=== PATIENT | female | born 1955 | race Caucasian/White ===

== ENCOUNTER → 2017-08-26 14:41 | Outpatient (CLI) | payer OTHER, SELFPAY ==
[2017-08-26 16:19] LABS: T4 Total, Thyroxin 9.5 ug/dL (4.8-13.9); Thyroid Stim Hormone (TSH) 1.49 uIU/mL (0.358-3.74)
[2017-08-30 11:57] LABS: HPV Reflexed? NOT INDICATED
== END ==
PROVIDERS: Family Provider Family Medicine; PCP Family Medicine; Visit Provider Family Medicine
DX: E03.9 Hypothyroidism, unspecified (principal); Z12.4 Encounter for screening for malignant neoplasm of cervix
CPT/HCPCS: 36415; 84436; 84443; 88175; G0145

== ENCOUNTER → 2017-09-10 09:19 | Outpatient (CLI) | payer OTHER, SELFPAY ==
--- NOTE | 2017-09-10 09:23 | US_ITS ---
STUDY: ABDOMINAL ULTRASOUND - RIGHT UPPER QUADRANT REASON FOR VISIT: Female, 61 years old. 3 month history of right upper quadrant pain with nausea and vomiting. TECHNIQUE: Ultrasound evaluation of the right upper quadrant was performed with real-time and static tran-scale imaging. TECHNICAL QUALITY: Adequate. COMPARISON: Comparison is made with prior examination dated August 17, 2015. FINDINGS: Liver: The liver measures 16.1 cm. There is increased echogenicity consistent with a mild degree of fatty infiltration. The bile ducts are within normal limits. There is hepatic color flow. The direction of portal flow is hepatopetal. There is no demonstrated mass lesion. Gallbladder: Normal distended gallbladder. The gallbladder wall measures 2.7 mm. There is a negative sonographic Santo's sign. There is no pericholecystic fluid. There are no gallstones. A small amount of sludge is seen within the gallbladder lumen. Common Bile Duct (C.B.D.): The common bile duct measures 4.5 mm. Pancreas: Normal size of the head, body and tail of the pancreas. There is normal echogenicity of the pancreas. There is no demonstrated pancreatic mass or cyst. Right Kidney: Normal size of the right kidney. The right kidney measures 11.2 cm x 5.3 cm x 4.1 cm. Normal renal cortex. The right cortex measures 1.3 cm. There is no demonstrated renal mass or cyst. There is no right hydronephrosis. 3 mm calculus is seen in the midportion right kidney. US/Abdomen Limited IMPRESSION: Mild degree of fatty infiltration of the liver. Stable nonobstructive right intrarenal calculus. Electronically Signed: Luis Angel De Jesus MD at 14:37 EDT Tel [phone], Service support ,
== END ==
PROVIDERS: Family Provider Family Medicine; PCP Family Medicine; Visit Provider Family Medicine
DX: R10.11 Right upper quadrant pain (principal)
CPT/HCPCS: 76705

== ENCOUNTER → 2017-09-23 12:21 | Outpatient (CLI) | payer OTHER, SELFPAY ==
--- NOTE | 2017-09-23 12:23 | NM_ITS ---
CLINICAL: 62-year-old female with reported history of abdominal pain and nausea. RADIONUCLIDE HEPATOBILIARY SCINTIGRAPHY COMPARISON: Abdominal ultrasound report 09/10/2017 FINDINGS: Following the intravenous administration of 5.3 mCi of 99m Tc Mebrofenin, hepatobiliary images reveal: 1. Relatively prompt and homogeneous radiopharmaceutical concentration is noted by a normal sized liver. No parenchymal defects are identified. 2. Gallbladder activity is identified at 10 minutes post radiopharmaceutical administration. 3. Small intestinal tract is not visualized during 60 minutes of pre-CCK sequential imaging. Small bowel activity is identified following the administration of cholecystokinin. 4. Washout of the radiopharmaceutical by the hepatic parenchyma appears qualitatively normal. Cholecystokinin (0.02 ug/kg) was administered intravenously over a 30-minute period. The post CCK gallbladder ejection fraction calculated at 25 minutes following Cholecystokinin administration was noted to be 89.0 % (normal greater than 35%). During 30 minutes of post CCK imaging, there is no scintigraphic evidence of reflux of the radiotracer into the common hepatic duct or refilling of the gallbladder. NM/Hepatobilliary Img w/Pharm Int IMPRESSION: 1. NORMAL 99m Tc Mebrofenin hepatobiliary imaging examination with Cholecystokinin. A. A gallbladder ejection fraction calculated to be greater than 35% following the administration of Cholecystokinin makes the probability of functional hepatobiliary disease (gallbladder and/or sphincter of Oddi dyskinesia) and/or organic hepatobiliary disease (chronic acalculous cholecystitis and/or cystic duct syndrome) to be low. (Stephanie Katz et al, Journal of Nuclear Medicine 32:1695, 1990). Electronically Signed: Rik Ibanez DO at 10:11 EDT Tel , Service support ,
== END ==
PROVIDERS: Family Provider Family Medicine; PCP Family Medicine; Visit Provider Family Medicine
DX: R10.11 Right upper quadrant pain (principal)
CPT/HCPCS: 78227; A9537; J2805

== ENCOUNTER 2017-12-04 20:00 | Emergency (ER) | payer OTHER, SELFPAY ==
--- NOTE | 2017-12-04 20:00 | DT_ITS ---
This patient was seen during an EMR downtime December 02, 2017 - December 09, 2017. This patient may have a combination of paper and electronic documentation or all paper documentation. All documentation is viewable within the e-chart portion of [facility] for each patient visit.
--- NOTE | 2017-12-04 22:00 | US_ITS ---
STUDY: ABDOMINAL ULTRASOUND - RIGHT UPPER QUADRANT REASON FOR VISIT: Female, 62 years old. Abdominal pain TECHNIQUE: Ultrasound evaluation of the right upper quadrant was performed with real-time and static tran-scale imaging. TECHNICAL QUALITY: Adequate. COMPARISON: None. FINDINGS: Liver: The liver measures 15 cm. There is increased echogenicity consistent with fatty infiltration. The bile ducts are within normal limits. There is hepatic color flow. The direction of portal flow is hepatopetal. There is no demonstrated mass lesion. The portal vein measures 9.3 mm. Measured at the radiologist workstation. Gallbladder: Normal distended gallbladder. The gallbladder wall measures 2 mm. There is a negative sonographic Santo's sign. There is no pericholecystic fluid. There are no gallstones. Common Bile Duct (C.B.D.): The common bile duct measures 5 mm. Pancreas: Normal size of the head, body and tail of the pancreas. There is normal echogenicity of the pancreas. There is no demonstrated pancreatic mass or cyst. Right Kidney: Normal size of the right kidney. The right kidney measures 10.4 x 4.3 x 4.7 cm. Normal renal cortex. The right cortex measures 1.4 cm. There is no demonstrated renal mass or cyst. There is mild right pelviectasis or minimal right hydronephrosis. There is a stable 2.2 mm stone within the right kidney. This is seen on August 17, 2015 abdominal ultrasound. There are punctate stones in the right kidney. US/Abdomen Limited IMPRESSION: Stable small stone in the right kidney. Mild right pelviectasis. No ultrasound evidence of cholelithiasis. Hepatic steatosis. Electronically Signed: Shante Rios MD at 20:28 EDT Tel , Service support ,
[2017-12-07 06:30] LABS: Absolute Lymphocyte Count 2.01 X10^3/ul (0.83-4.51); Basophil% 0.6 % (0-1); Eosinophils% 0.6 % (0-5); Hematocrit 40.1 % (37-47); Lymphocyte # 2.01 X10^3/ul (4.0); Mean Corp Hgb Conc 32.4 g/gl (32-36); Mean Corpuscular Hgb 29.3 pg (27.0-32.0); Mean Corpuscular Volume 90.5 fL (81-99); Mean Platelet Vol. 9.6 fl (6.2-12.0); Monocyte% 7.8 % (0-10); Neutrophil % 64.9 % (47-70); POSITIVE COUNT NO; POSITIVE DIFFERENTIAL NO; POSITIVE MORPHOLOGY NO; Platelet Count 211 K/mm3 (150-450); RBC Distribution Width SD 42.4 fl (35.1-43.9); Red Blood Count 4.43 M/mm3 (4.2-5.4); White Blood Count 7.7 K/mm3 (4.4-11.0)
[2017-12-07 06:31] LABS: Basophil# 0.05 X10^3/uL; Eosinophil# 0.05 X10^3/uL
[2017-12-07 06:48] LABS: AST(SGOT) 15 U/L (15-37); Alanine Aminotransfer ALT/SGPT 21 U/L (13-56); Alkaline Phosphatase 64 U/L (45-117); Bilirubin, Direct 0.07 mg/dL (0.00-0.30); Globulin 3.5 g/dL (2.2-4.2); Lipase 147 U/L (73-393); Protein, Total 7.5 g/dL (6.4-8.2)
[2017-12-07 11:14] LABS: Bacteria 0 SEEN /hpf (None Seen); Mucous, Urine 0 SEEN /hpf (<or=2+); Squamous Epithelial Cells - UA 0 SEEN /hpf (5-10)
[2017-12-07 11:23] LABS: Color, Urine Yellow (Yellow); Glucose, Dipstick NEGATIVE (Normal); Ketone-Dipstick 5 mg/dl (Negative); Leukocyte Esterase-Dipstick 25 /ul (Negative); Nitrite-Dipstick Negative (Negative); Occult Blood-Urine 10 /ul (Negative); Protein-Dipstick Negative (Negative); Red Blood Cells-Urine 0-5 SEEN /hpf (0-5); Transitional Epithelial - Ur 0-5 SEEN /hpf (0-5); Urine Bilirubin Dipstick Negative (Negative); Urine Clarity Clear (Clear); Urine Urobilinogen Normal (Normal); White Blood Cells 0-5 SEEN /hpf (0-5)
== END 2017-12-04 23:20 | disposition home or self-care (01) ==
LOC: ED 12-05 15:26
PROVIDERS: Emergency Provider Emergency Medicine; Family Provider Family Medicine; PCP Family Medicine
DX: R10.11 Right upper quadrant pain (principal); E03.9 Hypothyroidism, unspecified; Z79.899 Other long term (current) drug therapy
CPT/HCPCS: 76705; 80076; 81001; 83690; 85025; 96360; 96361; 99283; J7030; A4216

== ENCOUNTER → 2017-12-11 11:31 | Outpatient (CLI) | payer OTHER, SELFPAY ==
[2017-12-18 09:23] LABS: Fats, Neutral Normal (.); Fats, Total Normal (.)
== END ==
PROVIDERS: Family Provider Family Medicine; PCP Family Medicine; Visit Provider Internal Medicine Gastroenterology
DX: R19.7 Diarrhea, unspecified (principal); R11.0 Nausea
CPT/HCPCS: 82705

== ENCOUNTER → 2018-01-13 15:27 | Outpatient (CLI) | payer OTHER, SELFPAY ==
--- NOTE | 2018-01-13 15:34 | CT_ITS ---
STUDY: CT ABDOMEN AND PELVIS WITH CONTRAST REASON FOR EXAM: Female, 62 years old. Right upper quadrant pain RADIATION DOSAGE (If Supplied By Facility): CTDIvol = ( 11.09 ) mGy, DLP = ( 408.41 ) mGycm TECHNIQUE: Transaxial images were obtained from the dome of the diaphragm to the symphysis pubis without oral contrast. 100 ml of Isovue 300 contrast was administered. Sagittal and coronal images were reconstructed. Individualized dose optimization techniques were used for this CT. COMPARISON: None. FINDINGS: The visualized lung bases are unremarkable. The visualized portions of the heart are within normal limits. Normal liver. Normal gallbladder and extrahepatic biliary system. Normal spleen. Normal pancreas. Normal bilateral adrenal glands. Normal right kidney. Normal left kidney. Normal visualized stomach. Normal small intestine. Normal colon. There is non-visualization of the appendix. Normal abdominal aorta. Normal inferior vena cava. Normal retroperitoneum. Normal urinary bladder. Normal abdominal wall. Normal osseous structures. CT/Abdomen/Pelvis WITH Contrast IMPRESSION: Normal enhanced CT of the abdomen and pelvis. Electronically Signed: Michael Wagner MD at 7:54 EDT Tel , Service support ,
[2018-01-13 15:51] LABS: CREATININE FINGERSTICK < 0.6 mg/dL (0.55-1.02); EGFR FINGERSTICK > 60.0000 mL/min (>60)
== END ==
PROVIDERS: Family Provider Family Medicine; PCP Family Medicine; Visit Provider Internal Medicine Gastroenterology
DX: R10.9 Unspecified abdominal pain (principal); R11.0 Nausea
CPT/HCPCS: 74177; Q9967

== ENCOUNTER → 2018-09-05 10:06 | Outpatient (CLI) | payer OTHER, SELFPAY ==
[2018-09-05 12:59] LABS: Anion Gap 6 (5-15); BUN 11 mg/dL (7-18); BUN/Creat Ratio 15.3 RATIO (10-20); Calcium,Total 8.2 mg/dL (8.5-10.1); Chloride 107 mmol/L (98-107); Creatinine, Serum 0.72 mg/dL (0.55-1.02); EST Glomerular Filtration Rate 87 mL/min (>60); Est Glom Filt Rate - Afr Amer 106 mL/min (>60); Glucose 90 mg/dL (74-106); Potassium 4.2 mmol/L (3.5-5.1); Sodium Level 139 mmol/L (136-145); T4 Total, Thyroxin 10.5 ug/dL (4.8-13.9)
== END ==
PROVIDERS: Family Provider Family Medicine; PCP Family Medicine; Referring Provider Family Medicine; Visit Provider Family Medicine
DX: E03.9 Hypothyroidism, unspecified (principal); Z01.419 Encounter for gynecological examination (general) (routine) without abnormal findings
CPT/HCPCS: 36415; 80048; 84436; 84443

== ENCOUNTER → 2018-10-27 | Outpatient (CLI) | payer OTHER, SELFPAY ==
--- NOTE | 2018-10-27 12:51 | BI_ITS ---
MAMMOGRAPHY - BILATERAL SCREENING REASON FOR EXAM: Female, 63 years old. Routine annual screening examination. PERTINENT HISTORY: Non-contributory. TECHNIQUE: Digital bilateral breast dell (3D mammographic acquisition) in the CC and MLO projections. 2-D mediolateral oblique (MLO) and craniocaudad (CC) views of both breasts were obtained. CAD: Full Field Digital Mammography with Computer Added Detection was performed. COMPARISON: Comparison is made with prior study dated August 09, 2014 and August 07, 2013. FINDINGS: Breast Composition: There are scattered areas of fibroglandular density. There are no dominant masses or suspicious calcifications. No other significant abnormalities are identified. There has been no significant change since the prior study. BI/SCREENING MAMM (CAD), BILAT IMPRESSION: Stable bilateral screening mammogram. Yearly follow-up mammogram recommended. (A) ASSESSMENT CATEGORY: BIRADS Category 1: Negative. A letter regarding these results will be sent to the patient by the facility within 30 days. Approximately 10% of breast cancers are not detected by mammography. A normal mammogram should not delay biopsy of a clinically suspicious abnormality. [id number] Electronically Signed: Luis Angel De Jesus, at 14:45 EDT , Service support ,
== END | disposition home or self-care (01) ==
LOC: OPBI 12:50
PROVIDERS: Family Provider Family Medicine; PCP Family Medicine; Referring Provider Family Medicine; Visit Provider Family Medicine
DX: Z12.31 Encounter for screening mammogram for malignant neoplasm of breast (principal)
CPT/HCPCS: 77063; 77067

== ENCOUNTER → 2019-06-05 06:33 | Outpatient (CLI) | payer OTHER, SELFPAY ==
--- NOTE | 2019-06-05 15:51 | STRESSREP_ITS ---
Stress Test Report Date: 06/05/2019 Procedure: Exercise tolerance test/imaging study Indications: Chest pain Consent: Per the patient Procedure: The patient exercised on a Arian protocol for 9 minutes and 30 seconds achieving a peak heart rate of 169 bpm (107 % predicted maximal heart rate) with a peak blood pressure 180/60 mmHg and a peak MET capacity of 10.9 METs. The baseline ECG demonstrated normal sinus rhythm. The peak exercise ECG demonstrated sinus tachycardia with about 1 to [address] depressions in the inferior and lateral leads. EKG during recovery revealed return of ST segments to baseline [There were no significant cardiac dysrhythmias pretest, during exercise, or recovery]. Patient had occasional PVCs during exercise and in the recovery period. The functional capacity was considered [excellent for age]. There was [no complaint of chest discomfort during exercise or recovery]. The examination was discontinued secondary to dyspnea. Impression: 1. Technically adequate (percent predicted maximal heart rate greater than 85%) exercise tolerance test 2. Stress test is positive for exercise-induced EKG changes of ischemia 3. The test test is negative for exercise-induced chest pain 4. Functional capacity is excellent for age 5. Nuclear images pending Myocardial perfusion imaging study: Technique: The patient was injected with 12 mCi of technetium 99m Cardiolite and subsequently rest SPECT Cardiolite nuclear imaging was obtained in the horizontal long, vertical long, and short axis views. The patient exercised on a Arian protocol. Please see above for details. The patient was injected with [234] mCi of technetium 99m Cardiolite and subsequently stress SPECT Cardiolite nuclear imaging was obtained in the horizontal long, vertical long, and short axis views. A gated Cardiolite study at peak stress was obtained. Interpretation: Rest and stress SPECT Cardiolite nuclear imaging status post realignment, normalization, and attenuation correction, demonstrates normal myocardial radioisotope uptake. The gated Cardiolite study demonstrates no significant regional wall motion abnormalities. The reported LVEF is greater than 70 %. Impression: 1. There is no evidence of significant ischemia or infarction on the nuclear portion of the test. The EKG portion was abnormal as described above. 2. The gated Cardiolite study reports an LVEF of greater than 70 %. This note was generated with [employer] software. It may contain incorrect words, spelling, and punctuation that were not noted in checking the note before signing.
== END ==
PROVIDERS: Family Provider Family Medicine; PCP Family Medicine; Referring Provider Family Medicine; Visit Provider Family Medicine
DX: R07.89 Other chest pain (principal)
CPT/HCPCS: 78452; 93017; A9500; A4216

== ENCOUNTER → 2019-07-08 10:28 | Outpatient (CLI) | payer OTHER, SELFPAY ==
[2019-07-08 08:51] VITALS: BMI 26.2
[2019-07-08 10:20] VITALS: BMI 26.2
[2019-07-08 11:16] LABS: Absolute Lymphocyte Count 1.51 X10^3/uL (0.83-4.51); Absolute Neutrophil Count 5.1 X10^3/uL (2.0-7.7); Basophil# 0.07 X10^3/uL; Eosinophil# 0.08 X10^3/uL; Eosinophils% 1.1 % (0-5); Hematocrit 44.1 % (37-47); Hemoglobin 14.2 g/dL (12.0-15.0); Lymphocyte # 1.51 X10^3/ul (4.0); Lymphocyte % 20.9 % (19-41); Mean Corp Hgb Conc 32.2 g/dL (32-36); Mean Corpuscular Hgb 29.5 pg (27.0-32.0); Mean Corpuscular Volume 91.5 fL (81-99); Mean Platelet Vol. 9.5 fl (6.2-12.0); Monocyte# 0.47 X10^3/uL; Monocyte% 6.5 % (0-10); NRBC Flagged by Analyzer 0 % (0-5); Neutrophil # 5.05 X10^3/uL (2.7-7.7); Neutrophil % 70.1 % (47-70); Platelet Count 248 K/mm3 (150-450); RBC Distribution Width CV 13.4 % (11.6-14.6); RBC Distribution Width SD 45.2 fl (35.1-43.9); Red Blood Count 4.82 M/mm3 (4.2-5.4); White Blood Count 7.2 K/mm3 (4.4-11.0)
[2019-07-08 11:41] LABS: BUN 11 mg/dL (7-18); Creatinine, Serum 0.85 mg/dL (0.55-1.02); EST Glomerular Filtration Rate 71 mL/min (>60); Glucose 125 mg/dL (74-106)
[2019-07-08 11:42] LABS: AST(SGOT) 19 U/L (15-37); Alanine Aminotransfer ALT/SGPT 38 U/L (13-56); Albumin, Serum 4.2 g/dL (3.2-5.0); Alkaline Phosphatase 58 U/L (45-117); Anion Gap 5 (5-15); BUN/Creat Ratio 12.9 RATIO (10-20); Bilirubin, Direct 0.08 mg/dL (0.00-0.30); Calcium,Total 8.7 mg/dL (8.5-10.1); Chloride 104 mmol/L (98-107); Cholesterol 206 mg/dL (200); Est Glom Filt Rate - Afr Amer 86 mL/min (>60); High Density Lipoprotein 104 mg/dL; Potassium 4.3 mmol/L (3.5-5.1); Protein, Total 8.2 g/dL (6.4-8.2); Sodium Level 137 mmol/L (136-145); Thyroid Stim Hormone (TSH) 2.48 uIU/mL (0.358-3.74); Triglycerides 117 mg/dL; Very Low Density Lipoprotein 23 mg/dL (5-40)
--- NOTE | 2019-07-08 12:55 | RAD_ITS ---
STUDY: X-RAY CHEST REASON FOR EXAM: Female, 63 years old. CHEST PAIN, ABNORMAL EKG TECHNIQUE: PA and lateral views of the chest. COMPARISON: None. FINDINGS: The lungs are clear and expanded. Scattered calcified granulomas. There is no demonstrated pleural abnormality. Normal size heart. Normal mediastinum and kayden. Normal visualized pulmonary arteries. Normal visualized aortic arch and descending thoracic aorta. There are mild degenerative changes of the visualized thoracic spine. Normal visualized ribs, clavicles, and shoulders. There is no demonstrated abnormality of the visualized soft tissue structures of the upper abdomen. RAD/Chest PA and Lateral IMPRESSION: Normal x-ray examination of the chest. Electronically Signed: Luis Angel De Jesus, at 13:32 EST , Service support ,
--- NOTE | 2019-07-08 13:56 | ECHOD_ITS ---
Version 2 Reason For Study: Chest Pain Procedure This was a 2D Doppler, Color Flow transthoracic echocardiogram. Exam performed portable in patient room. Left Ventricle Normal LV size. Apical false tendon noted. Left ventricular systolic function is normal. The estimated ejection fraction is 65 %. Normal diastology for age. No regional wall motion abnormalities noted. Right Ventricle Normal RV size. Normal systolic function. Atria Normal left atrium. Normal right atrium. Bubble contrast study negative for right to left interatrial shunt. Mitral Valve Normal mitral valve. Tricuspid Valve Normal tricuspid valve. Aortic Valve Normal aortic valve. Trisinus/trileaflet aortic valve. Pulmonic Valve Normal pulmonic valve. Great Vessels Normal aortic root. The pulmonary artery is normal size. Normal inferior vena cava. Pericardium/Pleural Small pericardial effusion. Medication Performed a rapid injection of agitated mix of 9 cc saline and 1cc air to assess for atrial septal defect. MMode/2D Measurements & Calculations LVIDd: 3.9 cm IVSd: 1.0 cm Ao root diam: 2.8 cm LVIDs: 2.2 cm LVPWd: 1.0 cm RVDd: 2.9 cm FS: 41.9 % LAV(MOD-bp): 50.7 ml LVAd ap4: 19.8 cm2 SV(MOD-sp4): 34.8 ml LAV(MOD-bp) Indexed: 29.7 ml/m2 EDV(MOD-sp4): 50.1 ml LAV(MOD-sp2): 54.9 ml EDV(sp4-el): 50.7 ml LAV(MOD-sp4): 45.5 ml LVAs ap4: 9.7 cm2 ESV(MOD-sp4): 15.3 ml ESV(sp4-el): 15.2 ml EF(MOD-sp4): 69.4 % EF(sp4-el): 69.9 % SV(sp4-el): 35.4 ml LA A4 area: 16.3 cm2 LA dimension(2D): 3.6 cm RA A4 area: 12.7 cm2 Doppler Measurements & Calculations MV E max nato: 72.9 cm/sec Lat Peak E' Nato: 10.1 cm/sec Med Peak E' Nato: 8.1 cm/sec MV A max nato: 57.8 cm/sec E/E' lat: 7.2 E/E' med: 9.0 MV E/A: 1.3 Ao V2 max: 137.0 cm/sec LV V1 max: 118.9 cm/sec PA V2 max: 87.1 cm/sec Ao max P.5 mmHg LV V1 max P.7 mmHg Ao V2 mean: 94.9 cm/sec Ao mean P.0 mmHg Ao V2 VTI: 28.3 cm TR max nato: 247.8 cm/sec TR max P.6 mmHg Interpretation Summary Normal LV size. Left ventricular systolic function is normal. The estimated ejection fraction is 65 %. Normal diastology for age. Bubble contrast study negative for right to left interatrial shunt. Structurally normal valves. Ordering Physician: Carrillo Pavon Referring Physician: Betrha Frank Performed By: Conchita Goldsmith, EDUARDO, RVT
== END ==
PROVIDERS: Family Provider Family Medicine; PCP Family Medicine; Referring Provider Internal Medicine Cardiovascular Disease; Visit Provider Internal Medicine Cardiovascular Disease
DX: R07.9 Chest pain, unspecified (principal)
CPT/HCPCS: 36415; 71046; 80048; 80061; 80076; 84443; 85025; 93306; A4216

== ENCOUNTER 2019-07-09 06:43 | Day surgery (SDC) | payer OTHER, SELFPAY ==
[2019-07-08 08:51] VITALS: BMI 26.2
[2019-07-08 10:20] VITALS: BMI 26.2
--- NOTE | 2019-07-09 09:00 | CL.D_ITS ---
Patient Name: OSBALDO ZARAGOZA Study Date: 07/09/2019 Performing: Carrillo Pavon MD Ht: 64.17 inches 163 cm : 1955 Wt: 152.12 lbs 69 kg Age: 63 Gender: female BSA: 1.74 PROCEDURE(S) PERFORMED [id number]/COR/LV CLINICAL PROFILE AND INDICATIONS Indications: Suspected CAD Heart Failure: None Stress/Imaging Date: 06/05/2019Stress Test with SPECT MPI: Indeterminant CAD Presentations: Symptom unlikely to be ischemic. CONCLUSIONS Normal coronary arteries Normal LV size, wall motion,and systolic function RECOMMENDATIONS Medical therapy DESCRIPTION OF PROCEDURE The patient arrived to the procedure lab. The risks and benefits of the procedure as well as a full d escription of our services here and current unavailability of surgical backup were fully explained to the patient and/or their significant other prior to the catheterization. The Timeout was completed, verifying the correct patient and procedure. The patient's procedural site was prepped and draped in the usual fashion. Local anesthetic was given subcutaneously to right radial region with Lidocaine 2% . Using a modified Seldinger technique, arterial access was obtained via the right radial artery, a 6 Fr sheath was inserted. Left Coronary Artery selective angiography was performed in multiple views u sing a 5 Fr. 4.0 Quimby catheter. Right Coronary Artery selective angiography was then performed in mu ltiple views using a 5 Fr. 4.0 Quimby catheter. Left Ventriculography was performed in FARRIS projection using a 5 Fr. Pigtail catheter. LV to AO pullback pressures were then recorded.The arterial sheath was pulled and a TR Band was applied for hemostasis-12 cc air CORONARY ANGIOGRAPHY DOMINANCE: Right Dominant LEFT HEART ASSESSMENT Left Ventricular Ejection Fraction: by LV Gram 60 % Normal LV wall motion Normal Left Ventricular systolic function Normal Left Ventricular systolic function LEFT MAIN: Angiographically normal LEFT ANTERIOR DESCENDING ARTERY: Angiographically normal CIRCUMFLEX ARTERY: Angiographically normal RIGHT CORONARY ARTERY: Angiographically normal COMPLICATIONS No Complications PROCEDURE MEDICATIONS Versed 1 mg IV Fentanyl 50 mcg IV Fentanyl 25 mcg IV Oxygen: 2 L/min via nasal cannula Baby Aspirin (81mg) 1 Tabs PO @ 07/09/2019 08:41:29 Heparin diluted in 23cc Heparinized saline. Patient given 10cc IA of this solution. 07/09/2019 08:43:0 4 Verapamil 2.5mg, Ntg 100mcgs, 2000 units of Heparin diluted in 23cc Heparinized saline. Patient give n 10cc IA of this solution. 07/09/2019 08:43:04 SUMMARY OF HEMODYNAMIC DATA Time AIR REST ECG 07:13:52 AO 126/77 (101) SA 08:44:32 LV 151/2, 5 08:50:33 LV 143/2, 4 08:50:39 LV 131/6, 10 08:51:17 LVp 139/4, 11 08:51:28 AOp 146/74 (109) 08:51:33 Signed By Carrillo Pavon MD On 07/09/2019 08:59:54 Carrillo Pavon MD
== END 2019-07-09 12:00 | disposition home or self-care (01) ==
LOC: CLSP 06:43
PROVIDERS: Family Provider Family Medicine; PCP Family Medicine; Referring Provider Internal Medicine Cardiovascular Disease; Visit Provider Internal Medicine Cardiovascular Disease
DX: R07.9 Chest pain, unspecified (principal); E03.9 Hypothyroidism, unspecified; Z79.899 Other long term (current) drug therapy
CPT/HCPCS: 93458; 99152; 99153; J7040; C1769; C1894; Q9967

== ENCOUNTER → 2020-05-05 10:09 | Outpatient (CLI) | payer OTHER, SELFPAY ==
[2019-12-30 10:08] VITALS: BMI 25.7
[2020-05-05 13:18] LABS: T4 Total, Thyroxin 12.5 ug/dL (4.8-13.9); Thyroid Stim Hormone (TSH) 1.27 uIU/mL (0.358-3.74)
== END ==
PROVIDERS: PCP Family Medicine; Referring Provider Family Medicine; Visit Provider Family Medicine
DX: E03.9 Hypothyroidism, unspecified (principal)
CPT/HCPCS: 36415; 84436; 84443

== ENCOUNTER → 2020-05-13 | Outpatient (CLI) | payer OTHER, SELFPAY ==
[2019-12-30 10:08] VITALS: BMI 25.7
== END | disposition home or self-care (01) ==
PROVIDERS: PCP Family Medicine; Referring Provider Family Medicine; Visit Provider Family Medicine
DX: U07.1 COVID-19 (principal)
CPT/HCPCS: 87635; U0003

== ENCOUNTER 2020-08-09 22:20 | Emergency (ER) | payer OTHER, SELFPAY ==
[2019-12-30 10:08] VITALS: BMI 25.7
[2020-08-09 22:20] VITALS: BP 139/94; PULSE 99; RESP 18; TEMP 36.2; O2SAT 99; BMI 25.7
--- NOTE | 2020-08-09 22:34 | CT_ITS ---
STUDY: CT ABDOMEN AND PELVIS WITHOUT CONTRAST REASON FOR EXAM: Female, 64 years old. RIGHT SIDE UPPER ABD PAIN TODAY THAT IS SHARP IN NATURE, HX APPY RADIATION DOSAGE (If Supplied By Facility): CTDIvol = ( 8.12 ) mGy, DLP = ( 369.17 ) mGycm TECHNIQUE: Transaxial images were obtained from the dome of the diaphragm to the symphysis pubis without oral contrast, and without intravenous contrast. Sagittal and coronal images were reconstructed. Individualized dose optimization techniques were used for this CT. COMPARISON: None. FINDINGS: The visualized lung bases are unremarkable. The visualized portions of the heart are within normal limits. There is decreased attenuation of the liver consistent with steatosis. There is hepatomegaly. Normal gallbladder and extrahepatic biliary system. Normal spleen. Normal pancreas. Normal bilateral adrenal glands. Normal right kidney. Normal left kidney. Evaluation of the GI tract is limited by absence of oral contrast. Cannot exclude stomach wall thickening. No dilated loops of bowel or evidence for obstruction. Cannot exclude segmental thickening of the orantes of the small or large bowel. Cannot exclude enteritis or colitis. Moderate diffuse fecal retention. Appendix is not seen. Normal abdominal aorta. Normal inferior vena cava. Normal retroperitoneum. Normal urinary bladder. Normal visualized uterus. Normal abdominal wall. Normal osseous structures. CT/Abdomen/Pelvis without Cont IMPRESSION: No significant acute abnormality. Fatty liver with hepatomegaly. Moderate diffuse fecal retention. Electronically Signed: Sushant Mancuso MD at 23:28 EST , Service support ,
--- NOTE | 2020-08-09 22:36 | ED.VIS.GEN ---
History of Present Illness Chief Complaint: Abd Pain Informant: Patient Narrative: Patient stated this afternoon she had acute onset of sharp right sided waxing and waning pain. No nausea or vomiting. It came on worse this evening. She took a half a hydrocodone with moderate relief of symptoms. Came in for further evaluation. Had a similar episode 3 years ago had negative right upper quadrant ultrasound other than renal stone. Pain never came back. No blood in her urine. No urinary symptoms. She has never had a renal stone that she could think of lodged in her ureter. Current severity is mild to moderate. Cannot get comfortable tonight so came in. History of appendectomy. - Past Medical History (1) Intermittent palpitations Status: Chronic Past Medical History - Allergies and Home Meds Allergies/Adverse Reactions: Allergies lidocaine Allergy (Verified 07/09/19 07:42) Swelling from procedure on face, had localized swelling procaine [From Novocain] Adverse Reaction (Verified 07/09/19 07:42) Swelling dental procedure, localized swelling Primary Care Physician: Bertha Frank MD [Primary Care Provider] - Prior records reviewed: Yes Past Medical History: - - See problem list Surgical History: appendectomy Lives: With Family Smoking Status: Never smoker Alcohol: None Drugs: None Review of Systems General: Denies: Chills, Fever, Sweats Eyes: Denies: Visual changes - bilaterally, Diplopia ENT: Denies: Rhinorrhea, Sore throat Cardiovascular: Denies: Chest pain, Palpitations Respiratory: Denies: Dyspnea, Cough, Dyspnea on exertion Gastrointestinal: Reports: Abdominal pain. Denies: Nausea, Vomiting, Melena, Hematochezia Genitourinary: Denies: Dysuria, Hematuria, Frequency Musculoskeletal: Denies: Back pain, Extremity Pain Skin: Denies: Rash, Wounds Neurological: Denies: Headache, Weakness, Numbness Physical Exam Vital Signs/Narrative: Vital Signs Temp Pulse Resp BP Pulse Ox 08/09/20 22:20 97.1 F L 99 18 139/94 H 99 General: Well nourished, Well developed, No Acute Distress Head: Normocephalic, Atraumatic Eyes: Perrl, EOMI ENT: Moist mucous membranes, No rhinorrhea Neck: Supple, Nontender Cardiovascular: Regular rate, Regular rhythm, No murmurs Respiratory: No distress, CTA bilaterally, Chest nontender Abdomen: Soft, Nontender, Nondistended, Normal bowel sounds Back: Nontender, Normal Inspection Extremities: Nontender, No edema Skin: Normal color, No rash Neurological: Alert, Oriented x3, Cranial nerves II-XII grossly intact, Normal Strength, Normal Sensation Psychological: Normal affect, Normal Mood Diagnostic/Tx/Re-eval - Medical Decision Making IV established given dose of morphine and Toradol. Lab work and CT abdomen and pelvis obtained. Lab work showed a very mild leukocytosis just above 11,000. Liver function tests lipase urinalysis and other electrolytes kidney function normal. CT abdomen pelvis showed stool throughout the colon. Otherwise mild hepatomegaly. Gallbladder normal. Otherwise no renal stones seen or other pathology. This was reassured to the patient. On reevaluation she is resting comfortably. She does not appear in pain. Is not clear to me the exact cause of her symptoms in the right upper quadrant. Have a low suspicion for hepatitis. I feel she can follow-up with her family doctor for further outpatient evaluation ED Disposition - Plan for ED Patient: Disposition: Home or Assisted Living Diagnosis: Right flank pain Instructions: ED Abdominal Pain Unkn Cause Fem Referrals: Bertha Frank MD [Primary Care Provider] -
[2020-08-09 22:50] LABS: Bacteria 0 SEEN /hpf (None Seen); Mucous, Urine 0 SEEN /hpf (<or=2+); Red Blood Cells-Urine 0 SEEN /hpf (0-5); Squamous Epithelial Cells - UA 0 SEEN /hpf (5-10); White Blood Cells 0 SEEN /hpf (0-5)
[2020-08-09 22:52] LABS: Absolute Lymphocyte Count 1.86 X10^3/uL (0.83-4.51); Absolute Neutrophil Count 8.8 X10^3/uL (2.0-7.7); Basophil# 0.06 X10^3/uL; Basophil% 0.5 % (0-1); Eosinophil# 0.12 X10^3/uL; Hematocrit 41.7 % (37-47); Hemoglobin 13.3 g/dL (12.0-15.0); Lymphocyte # 1.86 X10^3/ul (4.0); Mean Corp Hgb Conc 31.9 g/dL (32-36); Mean Corpuscular Hgb 29.1 pg (27.0-32.0); Mean Corpuscular Volume 91.2 fL (81-99); Mean Platelet Vol. 9.3 fl (6.2-12.0); Monocyte# 0.79 X10^3/uL; Monocyte% 6.8 % (0-10); NRBC Flagged by Analyzer 0 % (0-5); Neutrophil # 8.75 X10^3/uL (2.7-7.7); Neutrophil % 75.4 % (47-70); Platelet Count 206 K/mm3 (150-450); RBC Distribution Width CV 13.6 % (11.6-14.6); RBC Distribution Width SD 45.9 fl (35.1-43.9); Red Blood Count 4.57 M/mm3 (4.2-5.4); White Blood Count 11.6 K/mm3 (4.4-11.0)
[2020-08-09 22:53] LABS: Color, Urine Yellow (Yellow); Glucose, Dipstick Normal (Normal); Ketone-Dipstick Negative (Negative); Leukocyte Esterase-Dipstick 25 /ul (Negative); Nitrite-Dipstick Negative (Negative); Occult Blood-Urine 25 /ul (Negative); Protein-Dipstick Negative (Negative); Urine Bilirubin Dipstick Negative (Negative); Urine Clarity Sl. Cloudy (Clear); Urine Urobilinogen Normal (Normal); Urine pH 6.5 (5.0 - 8.0)
[2020-08-09] MEDS: Morphine 2 MG/ML Syringe IV (22:55)
[2020-08-09] MEDS: Ketorolac 15 MG/ML Vial IV (22:55)
[2020-08-09 23:10] LABS: ALB/GLOB Ratio 1.1 RATIO (0.9-2.4); AST(SGOT) 22 U/L (15-37); Alanine Aminotransfer ALT/SGPT 45 U/L (13-56); Alkaline Phosphatase 60 U/L (45-117); Anion Gap 4 (5-15); BUN 16 mg/dL (7-18); Calcium,Total 8.7 mg/dL (8.5-10.1); Chloride 105 mmol/L (98-107); EST Glomerular Filtration Rate 76 mL/min (>60); Est Glom Filt Rate - Afr Amer 92 mL/min (>60); Estimated Creatinine Clearance 61.35 ml/min; Globulin 3.8 g/dL (2.2-4.2); Glucose 124 mg/dL (74-106); Lipase 114 U/L (73-393); Potassium 3.9 mmol/L (3.5-5.1); Protein, Total 7.8 g/dL (6.4-8.2); Sodium Level 137 mmol/L (136-145)
[2020-08-09 23:46] VITALS: BP 145/77; PULSE 83; RESP 16; O2SAT 98
== END 2020-08-09 23:51 | disposition home or self-care (01) ==
PROVIDERS: Emergency Provider Emergency Medicine; PCP Family Medicine
DX: R10.9 Unspecified abdominal pain (principal)
CPT/HCPCS: 74176; 80053; 81001; 83690; 85025; 96361; 96374; 96375; 99283; J7040; A4216

== ENCOUNTER → 2020-11-04 11:24 | Outpatient (CLI) | payer MEDICARE, OTHER, SELFPAY ==
[2020-11-04 15:09] LABS: Erythrocyte Sedimentation Rate 5 mm/hr (0-30)
[2020-11-04 15:11] LABS: Absolute Neutrophil Count 4.6 X10^3/uL (2.0-7.7); Basophil# 0.05 X10^3/uL; Basophil% 0.7 % (0-1); Eosinophil# 0.06 X10^3/uL; Eosinophils% 0.9 % (0-5); Hematocrit 45.2 % (37-47); Hemoglobin 14.5 g/dL (12.0-15.0); Lymphocyte % 24.8 % (19-41); Mean Corp Hgb Conc 32.1 g/dL (32-36); Mean Corpuscular Hgb 29.8 pg (27.0-32.0); Mean Platelet Vol. 10.2 fl (6.2-12.0); Monocyte# 0.43 X10^3/uL; Monocyte% 6.3 % (0-10); NRBC Flagged by Analyzer 0 % (0-5); Neutrophil % 67.2 % (47-70); Platelet Count 232 K/mm3 (150-450); RBC Distribution Width CV 13.3 % (11.6-14.6); RBC Distribution Width SD 45.5 fl (35.1-43.9); Red Blood Count 4.86 M/mm3 (4.2-5.4); White Blood Count 6.9 K/mm3 (4.4-11.0)
[2020-11-04 15:21] LABS: AST(SGOT) 19 U/L (15-37); Alanine Aminotransfer ALT/SGPT 24 U/L (13-56); Albumin, Serum 4.2 g/dL (3.2-5.0); Alkaline Phosphatase 52 U/L (45-117); Bilirubin, Direct 0.14 mg/dL (0.00-0.30); CRP < 2.90 mg/L (0.0-3.0); Globulin 3.7 g/dL (2.2-4.2); Protein, Total 7.9 g/dL (6.4-8.2); Rheumatoid Factor < 10.0 IU/mL (<15)
== END ==
PROVIDERS: PCP Family Medicine; Referring Provider Dermatology; Visit Provider Dermatology
DX: R21 Rash and other nonspecific skin eruption (principal)
CPT/HCPCS: 36415; 80076; 83516; 85025; 85652; 86038; 86140; 86235; 86431

== ENCOUNTER → 2021-02-27 09:35 | Outpatient (CLI) | payer MEDICARE, OTHER, SELFPAY ==
[2021-02-27 12:53] LABS: T4 Total, Thyroxin 9.6 ug/dL (4.8-13.9); Thyroid Stim Hormone (TSH) 5.45 uIU/mL (0.358-3.74)
== END ==
PROVIDERS: PCP Family Medicine; Visit Provider Family Medicine
DX: E03.9 Hypothyroidism, unspecified (principal)
CPT/HCPCS: 36415; 84436; 84443

== ENCOUNTER → 2021-05-22 10:36 | Outpatient (CLI) | payer MEDICARE, OTHER, SELFPAY ==
[2021-05-22 15:30] LABS: Thyroid Stim Hormone (TSH) 0.76 uIU/mL (0.358-3.74)
== END ==
PROVIDERS: PCP Family Medicine; Visit Provider Family Medicine
DX: E03.9 Hypothyroidism, unspecified (principal)
CPT/HCPCS: 36415; 84443

== ENCOUNTER 2021-10-03 14:36 | Outpatient (CLI) | payer MEDICARE, OTHER, SELFPAY ==
--- NOTE | 2021-10-03 14:40 | BI_ITS ---
MAMMOGRAPHY - BILATERAL SCREENING REASON FOR EXAM: Female, 66 years old. Routine annual screening examination. PERTINENT HISTORY: Non-contributory. TECHNIQUE: Digital bilateral breast frandy (3D mammographic acquisition) in the CC and MLO projections. 2-D mediolateral oblique (MLO) and craniocaudad (CC) views of both breasts were obtained. CAD: Full Field Digital Mammography with Computer Added Detection was performed. COMPARISON: Comparison is made with prior study dated 10/27/2018 and 08/09/2014. FINDINGS: Breast Composition: There are scattered areas of fibroglandular density. There are no dominant masses or suspicious calcifications. No other significant abnormalities are identified. There has been no significant change since the prior study. BI/SCRN MAMM (CAD)W/FRANDY BILAT IMPRESSION: Stable bilateral screening mammogram. Yearly follow-up mammogram recommended. (A) ASSESSMENT CATEGORY: BIRADS Category 1: Negative. A letter regarding these results will be sent to the patient by the facility within 30 days. Approximately 10% of breast cancers are not detected by mammography. A normal mammogram should not delay biopsy of a clinically suspicious abnormality. [id number] Electronically Signed: Luis Angel De Jesus MD at 15:45 EDT ,
== END 2021-10-03 23:59 | disposition home or self-care (01) ==
PROVIDERS: PCP Family Medicine; Referring Provider Family Medicine; Visit Provider Family Medicine
DX: Z12.31 Encounter for screening mammogram for malignant neoplasm of breast (principal)
CPT/HCPCS: 77063; 77067

== ENCOUNTER → 2022-05-02 | Outpatient (CLI) | payer MEDICARE, OTHER, SELFPAY ==
[2022-05-02 18:21] LABS: T4 Total, Thyroxin 11.7 ug/dL (4.8-13.9); Thyroid Stim Hormone (TSH) 0.18 uIU/mL (0.358-3.74)
== END | disposition home or self-care (01) ==
LOC: MFPLAB 14:50
PROVIDERS: PCP Family Medicine; Referring Provider Family Medicine; Visit Provider Family Medicine
DX: E03.9 Hypothyroidism, unspecified (principal)
CPT/HCPCS: 36415; 84436; 84443

== ENCOUNTER → 2022-08-02 | Outpatient (CLI) | payer MEDICARE, OTHER, SELFPAY ==
[2022-08-02 15:36] LABS: Thyroid Stim Hormone (TSH) 0.51 uIU/mL (0.358-3.74)
== END | disposition home or self-care (01) ==
LOC: MFPLAB 11:58
PROVIDERS: PCP Family Medicine; Referring Provider Family Medicine; Visit Provider Family Medicine
DX: E03.9 Hypothyroidism, unspecified (principal)
CPT/HCPCS: 36415; 84443

== ENCOUNTER → 2022-08-14 | Outpatient (CLI) | payer MEDICARE, OTHER, SELFPAY ==
[2022-08-14 07:37] LABS: Absolute Lymphocyte Count 2.04 X10^3/uL (0.83-4.51); Absolute Neutrophil Count 2.9 X10^3/uL (2.0-7.7); Basophil# 0.07 X10^3/uL; Basophil% 1.2 % (0-1); Eosinophil# 0.27 X10^3/uL; Eosinophils% 4.7 % (0-5); Hematocrit 43.6 % (37-47); Hemoglobin 13.9 g/dL (12.0-15.0); Lymphocyte # 2.04 X10^3/ul (0.83-4.51); Lymphocyte % 35.7 % (19-41); Mean Corp Hgb Conc 31.9 g/dL (32-36); Mean Corpuscular Hgb 29.2 pg (27.0-32.0); Mean Corpuscular Volume 91.6 fL (81-99); Mean Platelet Vol. 9.8 fl (6.2-12.0); Monocyte# 0.39 X10^3/uL; Monocyte% 6.8 % (0-10); NRBC Flagged by Analyzer 0 % (0-5); Neutrophil # 2.94 X10^3/uL (2.7-7.7); Neutrophil % 51.4 % (47-70); Platelet Count 229 K/mm3 (150-450); RBC Distribution Width CV 13.4 % (11.6-14.6); RBC Distribution Width SD 45.3 fl (35.1-43.9); Red Blood Count 4.76 M/mm3 (4.2-5.4); White Blood Count 5.7 K/mm3 (4.4-11.0)
[2022-08-14 08:41] LABS: ALB/GLOB Ratio 1.1 RATIO (0.9-2.4); AST(SGOT) 16 U/L (15-37); Alanine Aminotransfer ALT/SGPT 27 U/L (13-56); Albumin, Serum 3.8 g/dL (3.2-5.0); Alkaline Phosphatase 48 U/L (45-117); Anion Gap 9 (5-15); BUN 16 mg/dL (7-18); BUN/Creat Ratio 22.2 RATIO (10-20); Calcium,Total 8.9 mg/dL (8.5-10.1); Chloride 106 mmol/L (98-107); Creatinine, Serum 0.72 mg/dL (0.55-1.02); EST Glomerular Filtration Rate 86 mL/min (>60); Est Glom Filt Rate - Afr Amer 104 mL/min (>60); Estradiol < 11.0 pg/mL; Free T3 2.4 pg/mL (2.18-3.98); Globulin 3.5 g/dL (2.2-4.2); Glucose 109 mg/dL (74-106); Potassium 3.9 mmol/L (3.5-5.1); Protein, Total 7.3 g/dL (6.4-8.2); Sodium Level 139 mmol/L (136-145); T4 Free Direct 1.41 ng/dL (0.76-1.46); Thyroid Stim Hormone (TSH) 1.15 uIU/mL (0.358-3.74)
[2022-08-14 10:21] LABS: Progesterone Level 0.35 ng/mL (See Comment); Vitamin B12 342 pg/mL (211-911); Vitamin D,25 Hydroxy 46.3 ng/mL
[2022-08-17 19:03] LABS: ANTINUCLEAR ANTIBODIES DIRECT Negative (Negative)
[2022-08-19 22:06] LABS: Immunoglobulin A 62 mg/dL (87-352); Immunoglobulin E 19 IU/mL (6-495); Immunoglobulin G 1111 mg/dL (586-1602); Immunoglobulin M 64 mg/dL (26-217)
[2022-08-19 22:37] LABS: Thyroid Peroxidase AB 12 IU/mL (0-34)
== END | disposition home or self-care (01) ==
LOC: LAB 06:18
PROVIDERS: PCP Family Medicine; Referring Provider Preventive Medicine Public Health & General Preventive Medicine; Visit Provider Preventive Medicine Public Health & General Preventive Medicine
DX: E03.9 Hypothyroidism, unspecified (principal); E27.49 Other adrenocortical insufficiency; E53.8 Deficiency of other specified B group vitamins; E55.9 Vitamin D deficiency, unspecified; N95.1 Menopausal and female climacteric states
CPT/HCPCS: 36415; 80053; 82306; 82533; 82607; 82627; 82670; 82746; 82784; 82785; 84144; 84403; 84439; 84443; 84481; 85025; 86038; 86376; 82626

== ENCOUNTER → 2022-11-30 | Outpatient (CLI) | payer MEDICARE, OTHER, SELFPAY ==
[2022-11-30 10:18] LABS: Hemoglobin A1c 5.7 % (3.8-5.6)
[2022-11-30 10:36] LABS: Free T3 2.5 pg/mL (2.18-3.98); T4 Free Direct 1.46 ng/dL (0.76-1.46)
[2022-12-01 12:08] LABS: C-Peptide 2.5 ng/mL (1.1-4.4); Thyroid Peroxidase AB 13 IU/mL (0-34)
== END | disposition home or self-care (01) ==
LOC: LAB 09:18
PROVIDERS: PCP Family Medicine; Referring Provider Preventive Medicine Public Health & General Preventive Medicine; Visit Provider Preventive Medicine Public Health & General Preventive Medicine
DX: E03.9 Hypothyroidism, unspecified (principal); E16.2 Hypoglycemia, unspecified
CPT/HCPCS: 36415; 83036; 84439; 84443; 84481; 84681; 86376

== ENCOUNTER → 2023-03-11 | Outpatient (CLI) | payer MEDICARE, OTHER, SELFPAY ==
--- NOTE | 2023-03-11 08:06 | CT_ITS ---
STUDY: CT MAXILLOFACIAL SINUSES REASON FOR EXAM: Female, 67 years old. SINUSITIS RADIATION DOSAGE (If Supplied By Facility): CTDIvol = ( 28.14 ) mGy, DLP = ( 682.87 ) mGycm TECHNIQUE: The patient was scanned in a multi detector CT scanner. High resolution axial imaging was performed without the administration of intravenous contrast material. Sagittal and coronal images were reconstructed. Individualized dose optimization techniques were used for this CT. COMPARISON: None. FINDINGS: FRONTAL SINUSES: Normal aeration, without mucosal inflammatory disease. ETHMOIDAL SINUSES: Normal aeration, without mucosal inflammatory disease. MAXILLARY SINUSES: Normal aeration, without mucosal inflammatory disease. SPHENOIDAL SINUSES: Normal aeration, without mucosal inflammatory disease. There is patency of the bilateral maxillary infundibuli with normal uncinate processes, ethmoid bullae, and hiatus semilunaris. Normal bilateral middle turbinates. Normal bilateral inferior turbinates. There is a right sided nasal septal deviation, but without a nasal septal spur. There is patency of the bilateral nasal airways. The visualized osseous structures are normal. The visualized bilateral orbital contents are normal. CT/Sinus/Facial Bone IMPRESSION: Normal CT examination of the maxillofacial sinuses. Electronically Signed: Luis Angel De Jesus MD at 12:49 EDT ,
== END | disposition home or self-care (01) ==
LOC: CT 08:00
PROVIDERS: PCP Family Medicine; Referring Provider Otolaryngology Otolaryngology/Facial Plastic Surgery; Visit Provider Otolaryngology Otolaryngology/Facial Plastic Surgery
DX: J32.8 Other chronic sinusitis (principal)
CPT/HCPCS: 70486

== ENCOUNTER → 2023-05-15 | Outpatient (CLI) | payer MEDICARE, OTHER, SELFPAY ==
[2023-05-15 14:58] LABS: Absolute Lymphocyte Count 1.95 X10^3/uL (0.83-4.51); Absolute Neutrophil Count 3.8 X10^3/uL (2.0-7.7); Basophil# 0.08 X10^3/uL; Basophil% 1.2 % (0-1); Eosinophil# 0.15 X10^3/uL; Eosinophils% 2.3 % (0-5); Hematocrit 41.1 % (37-47); Hemoglobin 12.9 g/dL (12.0-15.0); Lymphocyte # 1.95 X10^3/ul (0.83-4.51); Lymphocyte % 30.4 % (19-41); Mean Corp Hgb Conc 31.4 g/dL (32-36); Mean Corpuscular Hgb 29.3 pg (27.0-32.0); Mean Corpuscular Volume 93.2 fL (81-99); Mean Platelet Vol. 9.5 fl (6.2-12.0); Monocyte# 0.42 X10^3/uL; Monocyte% 6.5 % (0-10); NRBC Flagged by Analyzer 0 % (0-5); Neutrophil % 59.3 % (47-70); Platelet Count 243 K/mm3 (150-450); RBC Distribution Width CV 13.3 % (11.6-14.6); RBC Distribution Width SD 45.6 fl (35.1-43.9); Red Blood Count 4.41 M/mm3 (4.2-5.4); White Blood Count 6.4 K/mm3 (4.4-11.0)
[2023-05-15 15:36] LABS: Progesterone Level 10.74 ng/mL (See Comment)
[2023-05-15 15:49] LABS: ALB/GLOB Ratio 1.1 RATIO (0.9-2.4); AST(SGOT) 26 U/L (15-37); Alanine Aminotransfer ALT/SGPT 55 U/L (13-56); Albumin, Serum 3.7 g/dL (3.2-5.0); Alkaline Phosphatase 52 U/L (45-117); Anion Gap 5 (5-15); BUN 15 mg/dL (7-18); BUN/Creat Ratio 17.8 RATIO (10-20); Calcium,Total 8.8 mg/dL (8.5-10.1); Chloride 105 mmol/L (98-107); Creatinine, Serum 0.84 mg/dL (0.55-1.02); EST Glomerular Filtration Rate 71 mL/min (>60); Est Glom Filt Rate - Afr Amer 86 mL/min (>60); Estradiol < 11.0 pg/mL; Free T3 2.5 pg/mL (2.18-3.98); Globulin 3.5 g/dL (2.2-4.2); Glucose 139 mg/dL (74-106); Protein, Total 7.2 g/dL (6.4-8.2); Sodium Level 139 mmol/L (136-145); T4 Free Direct 1.17 ng/dL (0.76-1.46); Thyroid Stim Hormone (TSH) 0.24 uIU/mL (0.358-3.74)
== END | disposition home or self-care (01) ==
LOC: LAB 13:52
PROVIDERS: PCP Family Medicine; Referring Provider Preventive Medicine Public Health & General Preventive Medicine; Visit Provider Preventive Medicine Public Health & General Preventive Medicine
DX: E03.9 Hypothyroidism, unspecified (principal); N95.1 Menopausal and female climacteric states
CPT/HCPCS: 36415; 80053; 82670; 84144; 84403; 84439; 84443; 84481; 85025

== ENCOUNTER 2023-06-02 19:00 | Emergency (ER) | payer MEDICARE, OTHER, SELFPAY ==
[2023-06-02 19:01] VITALS: BP 171/77; PULSE 90; RESP 15; TEMP 36.4; O2SAT 100; BMI 24.9
--- NOTE | 2023-06-02 19:15 | RAD_ITS ---
EXAM: XR LEFT ANKLE COMPLETE, 3 OR MORE VIEWS CLINICAL INDICATION: fall TECHNIQUE: Frontal, lateral and oblique views of the left ankle. COMPARISON: No relevant prior studies available. FINDINGS: BONES/JOINTS: There is a calcaneal spur. No acute fracture. No subluxation. Normal alignment. Preservation of the joint space. No sclerotic or destructive changes observed. SOFT TISSUES: Unremarkable. No soft tissue swelling or gas. No radiopaque foreign body. RAD/Ankle min 3 Views IMPRESSION: No acute findings in the left ankle. Electronically Signed: Vincent Gomez MD at 19:57 EST ,
--- NOTE | 2023-06-02 19:19 | RAD_ITS ---
EXAM: XR LEFT FOOT COMPLETE, 3 OR MORE VIEWS CLINICAL INDICATION: fall TECHNIQUE: Frontal, lateral and oblique views of the left foot. COMPARISON: No relevant prior studies available. FINDINGS: BONES/JOINTS: There is a calcaneal spur. No acute fracture. No subluxation. Normal alignment. Preservation of the joint space. No sclerotic or destructive changes observed. SOFT TISSUES: Unremarkable. No soft tissue swelling or gas. No radiopaque foreign body. RAD/Foot min 3 Views IMPRESSION: There is a calcaneal spur. Electronically Signed: Vincent Gomez MD at 19:44 EST ,
--- NOTE | 2023-06-02 20:07 | EX.ED.DYSGE1 ---
HPI <JANE Brian - Last Filed: 06/02/23 20:10> History of Present Illness Chief Complaint: Lower Extremity Injury Narrative Narrative: Patient 67-year-old female with hypothyroidism who presents to the emergency department after sustaining a left foot, left ankle injury. Patient states she was changing the sheets when she rolled her left ankle injuring her left ankle and foot. She denies any other injury. She does have history of calcaneal spur, she states that her pain is on the sole of the foot as well as the left lateral ankle. 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 Hypothyroidism Intermittent palpitations Renal calculus, right Home Medications multivitamin 1 tab PO DAILY 07/04/19 [History Last Taken Unknown] levothyroxine 75 mcg tablet 75 mcg PO DAILY 07/08/19 [History Last Taken 07/09/19] Allergy/AdvReac Type Severity Reaction Status Date / Time lidocaine Allergy Swelling Verified 07/09/19 07:42 procaine [From Novocain] AdvReac Swelling Verified 07/09/19 07:42 Family History Mother Hypertension Father Hypertension Diabetes Grandmother Diabetes Surgical History History of appendectomy History of History of left heart catheterization (07/09/19) Social History (Updated 12/30/19 @ 10:[address] Carrillo Pavon MD) Smoking Status: Never smoker caffeine: Yes Type: coffee and tea ROS <JANE Brian - Last Filed: 06/02/23 20:10> ROS ED ROS Narrative Constitutional: Negative for fever, chills, weight loss, weakness Eyes: Negative for vision loss, vision change, double vision ENT: Negative for any sore throat, ear pain, congestion Cardiovascular: Negative for any chest pain, tightness, palpitations Respiratory: Negative for any cough, sputum production, hemoptysis, dyspnea, dyspnea on exertion, orthopnea Gastrointestinal: Negative for any abdominal pain, nausea, vomiting, diarrhea, constipation, blood in stool, blood in vomit : Negative for any urinary frequency, dysuria, retention, blood in urine Muscle skeletal: Negative for any myalgias, arthralgias, neck pain, back pain. Positive for left ankle, left foot pain Neurological: Negative for any headache, syncope, numbness or tingling, dizziness Skin: Negative for any rashes, lumps, itching, abrasions, lacerations Psychiatric: Negative for any depression, anxiety, stress, suicidal ideation, homicidal ideation Hematologic: Negative for any easy bruising, excessive bruising, easy bleeding Allergies: Negative for any eczema, hives, rash EXAM <JANE Brian - Last Filed: 06/02/23 20:10> Physical Exam Narrative Exam Narrative: Vital signs reviewed. Extremities: No peripheral edema, no signs of gross trauma or deformity. Active full range of motion of all extremities. Patient has pain on palpation to the left lateral malleolus, is able to dorsiflex, plantarflex. Patient is have +2 pedal pulse. Neuro: Cranial nerves II through XII intact, no focal neurological deficits. Skin: Clean dry and intact with no rash, purpura, petechiae, vesicles or pustules. Backs/flank: No CVA tenderness, no midline spinal tenderness, no deformity. Psych: Normal mood and affect. No SI, HI or acute psychosis. Const Vital Signs: 06/02/23 19:01 Temperature 97.5 F L Temperature Source Temporal Pulse Rate 90 Respiratory Rate 15 Blood Pressure 171/77 H Blood Pressure Mean 108 Pulse Ox 100 Oxygen Delivery Method Room Air <Lutehr Siddiqi MD - Last Filed: 06/02/23 20:29> Physical Exam Const Vital Signs: 06/02/23 19:01 Temperature 97.5 F L Temperature Source Temporal Pulse Rate 90 Respiratory Rate 15 Blood Pressure 171/77 H Blood Pressure Mean 108 Pulse Ox 100 Oxygen Delivery Method Room Air MDM <JANE Brian - Last Filed: 06/02/23 20:10> MDM Radiography Diagnostic Testing: Clinical Impression(s) from Imaging Studies Ankle X-Ray 06/02/23 19:15 IMPRESSION: No acute findings in the left ankle. Electronically Signed: Vincent Gomez MD at 19:57 EST , Foot X-Ray 06/02/23 19:19 IMPRESSION: There is a calcaneal spur. Electronically Signed: Vincent Gomez MD at 19:44 EST , Treatment and Re-Evaluation :: Patient appears generally well, patient appears nontoxic, vital signs are stable. Presenting to the emergency department with left ankle, left foot pain. Differential diagnosis includes ankle sprain, foot contusion, lateral malleolus fracture, fifth metatarsal fracture. X-rays were completed 3 views of the left foot, left ankle, these were interpreted by the ER physician. These show no acute fractures of the ankle or foot, did show a calcaneal spur. All questions were answered, patient be discharged home with ankle sprain, foot contusion. She will be given an air splint. Patient is happy with the plan of care, given return precautions. She will follow-up outpatient. Stable for discharge <Luther Siddiqi MD - Last Filed: 06/02/23 20:29> [facility] MDM Narrative Medical decision making narrative: Dr. Siddiqi: I have personally performed a face to face assessment of the patient and have reviewed the EMILEE Note. I performed a substantive portion of the visit including all aspects of the following. My fernandes findings include: History is left foot and ankle injury earlier. Complains of pain and swelling across top of foot. Exam is afebrile. Vital signs noted. Mild tenderness palpation left lateral malleolus and across dorsum of foot and talofibular ligament area as well. Medical Decision Making: Check x-rays. Aircast. Ice, elevation. X-rays of the left ankle and 3 views and of the left foot interpreted by myself independently as no evidence of fracture. I reviewed the radiology report which confirms my independent interpretation. Patient has crutches and will be nonweightbearing for the next 3 to 5 days, then begin weightbearing as tolerated. Disposition is discharged home in stable condition. Other additions or changes: [None] Radiography Diagnostic Testing: Clinical Impression(s) from Imaging Studies Ankle X-Ray 06/02/23 19:15 IMPRESSION: No acute findings in the left ankle. Electronically Signed: Vincent Gomez MD at 19:57 EST , Foot X-Ray 06/02/23 19:19 IMPRESSION: There is a calcaneal spur. Electronically Signed: Vincent Gomez MD at 19:44 EST , Discharge Plan Triage Chief Complaint: Lower Extremity Injury ED Midlevel Provider: Kendall Everett ED Provider: Luther Siddiqi Dx/Rx/DC Orders Clinical Impression: Ankle sprain, Contusion of foot Instructions: ED Ankle Sprain (Adult) Prescriptions: No Action multivitamin Tablet 1 tab PO DAILY levothyroxine 75 mcg tablet 75 mcg PO DAILY Primary Care Provider: Bertha Frank Referrals: Bertha Frank MD [Primary Care Provider] - Disposition Disposition: Home, Self Care Discharge Date/Time: 06/02/23 20:23
== END 2023-06-02 20:23 | disposition home or self-care (01) ==
PROVIDERS: Emergency Provider Emergency Medicine; PCP Family Medicine; Visit Provider Emergency Medicine
DX: S93.402A Sprain of unspecified ligament of left ankle, initial encounter (principal); E03.9 Hypothyroidism, unspecified; S90.32XA Contusion of left foot, initial encounter; X50.9XXA Other and unspecified overexertion or strenuous movements or postures, initial encounter
CPT/HCPCS: 73610; 73630; 99283

== ENCOUNTER → 2023-12-27 | Outpatient (CLI) | payer MEDICARE, OTHER, SELFPAY | END | disposition home or self-care (01) | LOC: LABSPEC 10:38 | PROVIDERS: PCP Family Medicine; Referring Provider Physician Assistant Surgical; Visit Provider Physician Assistant Surgical | DX: N39.0 Urinary tract infection, site not specified (principal) | CPT/HCPCS: 87077; 87086; 87088; 87186 ==

== ENCOUNTER → 2024-05-12 | Outpatient (CLI) | payer MEDICARE, OTHER, SELFPAY ==
[2024-05-12 08:22] LABS: Absolute Lymphocyte Count 2.07 X10^3/uL (0.83-4.51); Absolute Neutrophil Count 3.9 X10^3/uL (2.0-7.7); Basophil# 0.05 X10^3/uL; Basophil% 0.8 % (0-1); Eosinophil# 0.16 X10^3/uL; Eosinophils% 2.4 % (0-5); Hematocrit 44.2 % (37-47); Hemoglobin 14.2 g/dL (12.0-15.0); Lymphocyte # 2.07 X10^3/ul (0.83-4.51); Lymphocyte % 31.4 % (19-41); Mean Corp Hgb Conc 32.1 g/dL (32-36); Mean Corpuscular Hgb 29.5 pg (27.0-32.0); Mean Corpuscular Volume 91.7 fL (81-99); Mean Platelet Vol. 9.2 fl (6.2-12.0); Monocyte# 0.42 X10^3/uL; Monocyte% 6.4 % (0-10); NRBC Flagged by Analyzer 0 % (0-5); Neutrophil # 3.88 X10^3/uL (2.7-7.7); Neutrophil % 58.8 % (47-70); Platelet Count 247 K/mm3 (150-450); RBC Distribution Width CV 13.2 % (11.6-14.6); RBC Distribution Width SD 44.6 fl (35.1-43.9); Red Blood Count 4.82 M/mm3 (4.2-5.4); White Blood Count 6.6 K/mm3 (4.4-11.0)
[2024-05-12 09:03] LABS: ALB/GLOB Ratio 1.1 RATIO (0.9-2.4); AST(SGOT) 17 U/L (15-37); Alanine Aminotransfer ALT/SGPT 37 U/L (13-56); Alkaline Phosphatase 55 U/L (45-117); Anion Gap 7 (5-15); BUN 13 mg/dL (7-18); BUN/Creat Ratio 17.4 RATIO (10-20); Calcium,Total 8.8 mg/dL (8.5-10.1); Chloride 104 mmol/L (98-107); Creatinine, Serum 0.75 mg/dL (0.55-1.02); EST Glomerular Filtration Rate 82 mL/min (>60); Est Glom Filt Rate - Afr Amer 99 mL/min (>60); Estradiol < 11.0 pg/mL; Free T3 2.5 pg/mL (2.18-3.98); Globulin 3.6 g/dL (2.2-4.2); Glucose 115 mg/dL (74-106); Protein, Total 7.6 g/dL (6.4-8.2); Sodium Level 137 mmol/L (136-145)
[2024-05-13 04:08] LABS: PROGESTERONE 3.4 ng/mL (.); Thyroid Peroxidase AB 18 IU/mL (0-34)
== END | disposition home or self-care (01) ==
LOC: LAB 07:36
PROVIDERS: PCP Family Medicine; Referring Provider Preventive Medicine Public Health & General Preventive Medicine; Visit Provider Preventive Medicine Public Health & General Preventive Medicine
DX: E03.9 Hypothyroidism, unspecified (principal); N95.1 Menopausal and female climacteric states
CPT/HCPCS: 36415; 80053; 82670; 84144; 84403; 84439; 84443; 84481; 85025; 86376

== ENCOUNTER → 2024-07-14 | Outpatient (CLI) | payer MEDICARE, OTHER, SELFPAY | END | disposition home or self-care (01) | LOC: LABSPEC 15:32 | PROVIDERS: PCP Family Medicine; Referring Provider Otolaryngology Otolaryngology/Facial Plastic Surgery; Visit Provider Otolaryngology Otolaryngology/Facial Plastic Surgery | DX: J32.8 Other chronic sinusitis (principal) ==

== ENCOUNTER → 2024-08-18 | Outpatient (CLI) | payer MEDICARE, OTHER, SELFPAY ==
[2024-08-20 15:36] LABS: Vitamin D,25 Hydroxy 47.2 ng/mL
== END | disposition home or self-care (01) ==
LOC: MFPLAB 09:16
PROVIDERS: PCP Family Medicine
DX: Z00.00 Encounter for general adult medical examination without abnormal findings (principal)
CPT/HCPCS: 36415; 82306

== ENCOUNTER → 2024-08-25 | Outpatient (CLI) | payer MEDICARE, OTHER, SELFPAY ==
--- NOTE | 2024-08-25 14:32 | BI_ITS ---
PROCEDURE: SCRN MAMM (CAD)W/FRANDY BILAT REASON FOR EXAM: F, Age 68 y/o, presents for annual screening mammogram. There is no family history of breast cancer. TECHNIQUE: Bilateral screening digital breast tomosynthesis with 2D and 3D images. Computer aided detection. COMPARISON: 10/03/2021 FINDINGS: There are scattered areas of fibroglandular density. No suspicious masses, areas of developing architectural distortion, or suspicious calcifications. BI/SCRN MAMM (CAD)W/FRANDY BILAT IMPRESSION: There is no mammographic evidence of malignancy in either breast. BI-RADS 1: NEGATIVE. RECOMMEND ANNUAL MAMMOGRAPHIC SCREENING. Follow-up code: Routine Follow-up The patient will be notified of the results by letter. Reading Location: [id number]
== END | disposition home or self-care (01) ==
LOC: OPBI 14:31
PROVIDERS: PCP Family Medicine
DX: Z12.31 Encounter for screening mammogram for malignant neoplasm of breast (principal)
CPT/HCPCS: 77063; 77067

== ENCOUNTER → 2024-08-27 | Outpatient (CLI) | payer MEDICARE, OTHER, SELFPAY ==
--- NOTE | 2024-08-27 10:11 | RAD_ITS ---
PROCEDURE: CHEST PA AND LATERAL REASON FOR EXAM: Shortness of breath, bronchitis TECHNIQUE: Frontal and lateral views of the chest. COMPARISON: None. FINDINGS: Cardiomediastinal silhouette is within normal limits. Lungs are clear. No sizable pneumothorax. RAD/Chest PA and Lateral IMPRESSION: No acute airspace abnormality. Reading Location: [facility]
== END | disposition home or self-care (01) ==
LOC: MTRAD 10:09
PROVIDERS: PCP Family Medicine
DX: J40 Bronchitis, not specified as acute or chronic (principal)
CPT/HCPCS: 71046

== ENCOUNTER → 2024-11-11 | Outpatient (CLI) | payer MEDICARE, OTHER, SELFPAY ==
[2024-11-11 19:11] LABS: Thyroid Stim Hormone (TSH) 0.019 uIU/mL (0.300-4.200)
== END | disposition home or self-care (01) ==
LOC: MFPLAB 14:13
PROVIDERS: PCP Family Medicine; Referring Provider Family Medicine; Visit Provider Family Medicine
DX: E03.9 Hypothyroidism, unspecified (principal)
CPT/HCPCS: 36415; 84443

== ENCOUNTER → 2025-01-08 | Outpatient (CLI) | payer MEDICARE, OTHER, SELFPAY | END | disposition home or self-care (01) | LOC: MFPLAB 11:30 | PROVIDERS: PCP Family Medicine; Referring Provider Family Medicine; Visit Provider Family Medicine | DX: E03.9 Hypothyroidism, unspecified (principal) | CPT/HCPCS: 36415; 84443 ==

== ENCOUNTER → 2025-01-21 | Outpatient (CLI) | payer MEDICARE, OTHER, SELFPAY ==
[2025-01-21 16:10] LABS: Free T3 2.3 pg/mL (2.18-3.98)
--- OUTSIDE RECORDS SUMMARY | 2025-01-21 22:07 | XMS RPT_ITS | CCD ---
Author Organization [facility]ini[facility] Care Team Providers Care Market Stall Vendor Name Role Phone Monika URBINA, Dr. Bertha Kruger Primary Care Provider [phone] Meño URBINA, Dr. Blake Attending Provider Meño URBINA, Dr. Blake Referring Provider Celina URBINA, Dr. Odell Infante Attending Provider [phone] Celina URBINA, Dr. Odell Infante Referring Provider [phone] McMorrow DRYING TUMBLER OPERATOR-C, John Attending Provider McMorrow DRYING TUMBLER OPERATOR-C, John Referring Provider Monika URBINA, Dr. Bertha Kruger Primary Care Provider Monika URBINA, Dr. Bertha Kruger Primary Care Provider Olivia URBINA, Dr. Argueta Primary Care Provider Olivia URBINA, Dr. Argueta Attending Provider Olivia URBINA, Dr. Argueta Referring Provider Jolliff, Bertha S Primary Care Unavailable McMorrow DRYING TUMBLER OPERATOR, John Attending Unavailable McMorrow DRYING TUMBLER OPERATOR, John Referring Unavailable Jolliff, Bertha S Primary Care Unavailable McMorrow DRYING TUMBLER OPERATOR, John Attending Unavailable McMorrow DRYING TUMBLER OPERATOR, John Referring Unavailable Jolliff, Bertha S Primary Care Unavailable McMorrow DRYING TUMBLER OPERATOR, John Attending Unavailable Odell Patrick Attending Unavailable Odell Patrick Referring Unavailable Jolliff, Bertha S Primary Care Unavailable Meño, Hayden Attending Unavailable Alexandrealliff, Bertha S Primary Care Unavailable Meño, Hayden Referring Unavailable Kendall Baker Primary Care Unavailable Kendall Baker Attending Unavailable Kendall Baker Referring Unavailable Kendall Baker Referring Unavailable Kendall Baker Primary Care Unavailable Baker, Kendall Attending Unavailable Allergies Allergy Classification Reported Allergen(s) Allergy Type Date of Onset Reaction(s) Facility (11 sources) Lidocaine Drug Allergy 07-09-2019 Swelling [facility] Comment on above: from procedure on fa ce, had localized swelling (11 sources) Procaine Drug Allergy 07-09-2019 Swelling [facility] Comment on above: dental procedure, lo calized swelling (1 source) Lidocaine Drug Allergy 12-27-2023 [facility] Repository (1 source) Procaine Drug Allergy 12-27-2023 [facility] Repository Medications Current Medications Medication Drug Class(es) Dates Sig (Normalized) Sig (Original) levothyroxine sodium 0.075 mg oral tablet (20 sources) l-Thyroxine Start: 07-04-2019 End: 07-08-2019 take 1 tablet by mouth once daily Levothyroxine 75 mcg tablet Active 75 ug PO DAILY July 08, 2019 9:47am Start: 07-04-2019 End: 07-08-2019 Levothyroxine 75 mcg tablet Discontinued PO July 04, 2019 1:00am July 08, 2019 9:48am Multivitamin preparation (7 sources) Start: 07-04-2019 take 1 tablet by mouth once daily Multivitamin Active 1 TABLET PO DAILY July 04, 2019 11:18am Start: 07-04-2019 take 1 tablet by yeimi th once daily Multivitamin Active 1 TABLET PO DAILY July 04, 2019 1:00am Start: 07-04-2019 take 1 tablet by yeimi th once daily Multivitamin Active 1 TABLET PO DAILY July 04, 2019 12:00am Multivitamin tablet (4 sources) Start: 07-04-2019 Multivitamin t ablet Active 1 {tbl} PO DAILY July 04, 2019 1:00am Completed/Discontinued Medications Medication Drug Class(es) Dates Sig (Normalized) Sig (Original) nitrofurantoin, macrocrystals 25 mg / nitrofurantoin, monohydrate 75 mg oral capsule (4 sources) Nitrofuran Antibacterial Start: 12-27-2023 End: 01-03-2024 take 1 capsule by mouth every twelve hours at mealtime Nitrofurantoin Monohyd/M-Cryst 100 mg capsule Discontinued 1 NMA PO Q12H 14 7 0 December 27, 2023 12:00am January 02, 2024 12:00am January 03, 2024 12:05am administer with a meal/food; swallow whole; do not open, crush, dissolve , or chew Problems Active Problems Problem Classification Problem Date Documented Da te Episodic/Chronic Abdominal pain (11 sources) Right flank pain; Translations: [Unspecified abdominal pain] 08-10-2020 Episodic Cardiac dysrhythmias (11 sources) Intermittent palpitations; Translations: [Palpitations] 12-29-2019 Episodic Nonspecific chest pain (11 sources) Chest pain on exertion; Translations: [Chest pain, unspecified] 08-09-2020 Episodic Other upper respiratory infections (1 source) Other chronic sinusitis; Translations: [Other chronic sinusitis] Onset: 08-05-2024 Chronic Sprains and strains (5 sources) Sprain of ankle; Translations: [Sprain of unspecified ligament of unspecified ankle, initial encounter] 06-02-2023 Episodic Superficial injury; contusion (5 sources) Contusion of foot; Translations: [Contusion of unspecified foot, initial encounter] 06-02-2023 Episodic Thyroid disorders (5 sources) Hypothyroidism; Translations: [Hypothyroidism, unspecified] Onset: 01-13-2025 12-27-2023 Chronic Past or Other Problems Problem Classification Problem Date Documented Date Episodic/Chronic Chronic obstructive pulmonary disease and bronchiectasis (1 source) Bronchitis, not specified as acute or chronic; Translations: [Bronchitis, not specified as acute or chronic] Onset: 09-10-2024 Episodic Other screening for suspected conditions (not mental disorders or infectious disease) (20 sources) Cardiovascular stress test abnormal; Translations: [Abnormal result of other cardiovascular function study] Onset: 09-09-2024 08-09-2020 Episodic Results Test Name Value Interpretation Reference Range Facility TSH DL <= 0.005 mIU/L QnOrde red By: Kendall Baker on 01-08-2025 TSH Qn 0.084 uIU/mL Low 0.300-4.200 [facility] Thyroid Stim Hormone (TSH)on 01-08-2025 TSH 0.084 uIU/mL Low 0.300-4.200 [facility] Comment on above: Order Comment: Order Date: 11/12/24 Order Info: [id number] - TSH Performed By: #### L 501.9520 #### [facility] [address] [place], [place], [id number] TSH DL <= 0.005 mIU/L QnOrde red By: Kendall Baker on 11-11-2024 TSH Qn 0.019 uIU/mL Low 0.300-4.200 [facility] Thyroid Stim Hormone (TSH)on 11-11-2024 TSH 0.019 uIU/mL Low 0.300-4.200 [facility] Comment on above: Performed By: #### L 501.9520 #### [facility] [address] [place], [place], [id number] Chest PA and Lateralon 08-27 Chest PA and Lateral [facility] [address] [place] [place], [place] [address] Chest PA and Lateral MR#: [id number] Acct: [id number] Name: OSBALDO ZARAGOZA Rep #: [id number] : 1955 F 68 From: Rgioberto Young PCP: Dr. Bertha Frank MD Status: REG CLI Study: Chest PA and Lateral Date of Exam: 08/27/24 Exam# [id number] Ordering Dr: John Diego NP, NP -Karly PROCEDURE: CHEST PA AND LATERAL REASON FOR EXAM: Shortness of breath, bronchitis TECHNIQUE: Frontal and lateral views of the chest. COMPARISON: None. FINDINGS: Cardiomediastinal silhouette is within normal limits. Lungs are clear. No sizable pneumothorax. RAD/Chest PA and Lateral IMPRESSION: No acute airspace abnormality. Reading Location: [facility] CC: John EDMOND NP-Karly Diego; Dr. Bertha Frank MD Bag Worker: Signed Normal [facility] Breast imaging reportOrdered By: Hannah Palomo on 08-25-2024 Study report [facility] [address] [place], [place] [id number] SCRN MAMM (CAD)W/FRANDY BILAT MR#: [id number] Acct: [id number] Name: OSBALDO ZARAGOZA Rep #: : 1955 F 68 From: Maureen Palomo MD PCP: Dr. Bertha Frank MD Status: REG CLI Study:SCRN MAMM (CAD)W/FRANDY BILAT Date of Exa m: 08/25/24 Exam# [id number] Ordering Dr: John Diego NP, NP-Karly PROCEDURE: SCRN MAMM (CAD)W/FRANDY BILAT REASON FOR EXAM: F, Age 68 y/o, presents for annual screening mammogram. There is no family history of breast cancer. TECHNIQUE: Bilateral screening digital breast tomosynthesis with 2D and 3D images. Computeraided detection. COMPARISON: 10/03/2021 FINDINGS: There are scattered areas of fibroglandular density. No suspicious masses, areas of developing architectural distortion, or suspicious calcifications. BI/SCRN MAMM (CAD)W/FRANDY BILAT IMPRESSION: There is no mammographic evidence of malignancy in either breast. BI-RADS 1: NEGATIVE. RECOMMEND ANNUAL MAMMOGRAPHIC SCREENING. Follow-up code: Routine Follow-up The patient will be notified of the results by letter. Reading Location: [facility] CC: John Diego; Dr. Bertha Frank MD ~ Bag Worker: Signed [facility] SCRN MAMM (CAD)W/FRANDY BILATo n 08-25-2024 SCRN MAMM (CAD)W/FRANDY BILAT [facility] Imaging Services [address] [place] [id number] SCRN MAMM (CAD)W/FRANDY BILAT MR#: [id number] Acct: [id number] Name: OSBALDO ZARAGOZA Rep #: [id number] : 1955 F 68 From: Hannah Palomo MD PCP: Dr. Bertha Frank MD Status: REG CLI Study: SCRN MAMM (CAD)W/FRANDY BILAT Date of Exam: 08/02 11/22 Exam# [id number] Ordering Dr: John Diego NP DRYING TUMBLER OPERATOR -C PROCEDURE: SCRN MAMM (CAD)W/FRANDY BILAT REASON FOR EXAM: F, Age 68 y/o, presents for annual screening mammogram. There is no family history of breast cancer. TECHNIQUE: Bilateral screening digital breast tomosynthesis with 2D and 3D images. Computer aided detection. COMPARISON: 10/03/2021 FINDINGS: There are scattered areas of fibroglandular density. No suspicious masses, areas of developing architectural distortion, or suspicious calcifications. BI/SCRN MAMM (CAD)W/FRANDY BILAT IMPRESSION: There is no mammographic evidence of malignancy in either breast. BI-RADS 1: NEGATIVE. RECOMMEND ANNUAL MAMMOGRAPHIC SCREENING. Follow-up code: Routine Follow-up The patient will be notified of the results by letter. Reading Location: [facility] CC: John Diego; Dr. Bertha Frank MD Bag Worker: Signed Normal [facility] Vitamin D,25 Hydroxyon 08-20 Vitamin D 25-OH 47.2 ng/mL Normal [facility] Comment on above: Order Comment: Order Date: 08/18/24 Order Info: [id number] - VITD25 Result Comment: Vanna min D 25(OH) Status Range Deficiency <20 ng/mL (50nmol/L) Insufficiency 20 - 30 ng/mL (50 - 75 nmol/L) Sufficiency 30 - 100 ng/mL (75 - 250 nmol/L) Toxicity >100 ng/mL (>250 nmol/L) Performed By: #### L 506.1000 #### [facility] [address] [place], [place] [address], [address] [id number] DOrdered By: Jeramie Diego on 08-18-2024 Vitamin D 25-Hydroxy 47.2 ng/mL [facility] Comment on above: Vitamin D 25(OH) Sta tus Range Deficiency <20 ng/mL (50nmol/L) Insufficiency 20 - 30 ng/mL (50 - 75 nmol/L) Sufficiency 30 - 100 ng/mL (75 - 250 nmol/L) Toxicity >100 ng/mL (>250 nmol/L) Nasopharyngeal Cultureon NAC Penicillin is the drug of choice for Beta Streptococcal infections. For Penicillin allergic patients, Erythromycin may be used. No Group A Beta Streptococcus isolated. Streptococcus group F Amount Growth 2+ Normal [facility] Comment on above: Performed By: #### L 501.9520 #### [facility] [address] [place], [place], [address] Gram Stainon 07-15-2024 GS Gram Stain Rare Gram positive cocci Rare Gram positive rods No White Blood Cells Normal [facility] Comment on above: Performed By: #### L 501.9520 #### [facility] [address] [place], [place], [address] Gram stainOrdered By: Odell gudino on 07-14-2024 Microscopic observation Gram stain Nom (Unsp spec) [facility] Nasopharyngeal cultureOrdere d By: Odell Patrick on 07-14-2024 Nasopharyngeal Culture Streptococcus group F Abnormal [facility] PROGESTERONE 4317on 05-13-20 24 PROGESTERONE 3.4 ng/mL Normal . [facility] Comment on above: Order Comment: Order Date: 11/12/24 Order Info: [id number] - TSH Result Comment: Foll icular phase 0.1 - 0.9 Luteal phase 1.8 - 23.9 Ovulation phase 0.1 - 12.0 First trimester 11.0 - 44.3 Second trimester 25.4 - 83.3 Third trimester 58.7 - 214.0 Postmenopausal 0.0 - 0.1 Performed at: [facility] [id number] [employer] Bagger: John Zuluaga PhD, Phone: [phone] Performed By: #### L 501.9520 #### [facility] [address] [place], [place], [address] Thyroid Peroxidase ABon 11-1 THYR PEROX AB 18 IU/mL Normal 0-34 [facility] Comment on above: Result Comment: Perf ormed at: [facility] [address], [place] [id number] [employer] Bagger: John Zuluaga PhD, Phone: [phone] Performed By: #### L 501.16923, L3300.6900, L501.9520, L801.2600, L509.3000, L3300.1750, L100.0100, L506.0400, L500.4050 #### [facility] [address] [place], [place], [id number] Absolute neutrophil countOrd ered By: Hayden Wilder on 05-12-2024 Neutrophils (Bld) [#/Vol] 3.9 10*3/uL 2.0-7.7 [facility] Albumin to globulin ratioOrd ered By: Hayden Wilder on 05-12-2024 Albumin/Globulin [Mass ratio] 1.1 {ratio} 0.9-2.4 [facility] Basophil percentageOrdered B y: Hayden Wilder on 05-12-2024 Basophils/100 WBC (Bld) 0.8 % 0-1 [facility] Bilirubin, totalOrdered By: Hayden Wilder on 05-12-2024 Bilirubin [Mass/Vol] 0.50 mg/dL 0.20-1.00 [facility] Comment on above: For patients on eltr ombopag therapy, use of Dimension [place] TBIL is not recommended. Blood urea nitrogen (BUN)/cr eatinine ratioOrdered By: Hayden Wilder on 05-12-2024 Urea nitrogen/Creatinine [Mass ratio] 17.4 mg/mg 10-20 [facility] CBC W/Diff, Automatedon 05-01 Absolute Lymph 2.07 X10 3/uL Normal 0.83-4.51 [facility] Comment on above: Performed By: #### L 501.23517, L3300.6900, L501.9520, L801.2600, L509.3000, L3300.1750, L100.0100, L506.0400, L500.4050 #### [facility] [address] [place], [address] Absolute Neut 3.9 X10 3/uL Normal 2.0-7.7 [facility] Comment on above: Performed By: #### L 501.88801, L3300.6900, L501.9520, L801.2600, L509.3000, L3300.1750, L100.0100, L506.0400, L500.4050 #### [facility] [address] [place], [address] Basophils/100 WBC (Bld) 0.8 % Normal 0-1 [facility] Comment on above: Performed By: #### L 501.46259, L3300.6900, L501.9520, L801.2600, L509.3000, L3300.1750, L100.0100, L506.0400, L500.4050 #### [facility] [address] [place], [address] Eosinophils/100 WBC (Bld) 2.4 % Normal 0-5 [facility] Comment on above: Performed By: #### L 501.36811, L3300.6900, L501.9520, L801.2600, L509.3000, L3300.1750, L100.0100, L506.0400, L500.4050 #### [facility] [address] [place], [address] Erythrocyte distribution width (RBC) [Ratio] 13.2 % Normal 11.6-14.6 [facility] Comment on above: Performed By: #### L 501.42764, L3300.6900, L501.9520, L801.2600, L509.3000, L3300.1750, L100.0100, L506.0400, L500.4050 #### [facility] [address] [place], [address] Hematocrit (Bld) [Volume fraction] 44.2 % Normal 37-47 [facility] Comment on above: Performed By: #### L 501.22678, L3300.6900, L501.9520, L801.2600, L509.3000, L3300.1750, L100.0100, L506.0400, L500.4050 #### [facility] [address] [place], [address] Hemoglobin (Bld) [Mass/Vol] 14.2 g/dL Normal 12.0-15. 0 [facility] Comment on above: Performed By: #### L 501.14040, L3300.6900, L501.9520, L801.2600, L509.3000, L3300.1750, L100.0100, L506.0400, L500.4050 #### [facility] [address] [place], [address] IG% 0.200 Normal 0.0-0.9 [facility] Comment on above: Result Comment: IG% - Immature Granulocytes (promyelocytes, myelocytes and metamyelocytes) > 1% indicates that a LEFT SHIFT is Present. Performed By: #### L 501.25420, L3300.6900, L501.9520, L801.2600, L509.3000, L3300.1750, L100.0100, L506.0400, L500.4050 #### [facility] [address] [place], [place], [id number] (448) Lymphocytes/100 WBC (Bld) 31.4 % Normal 19-41 [facility] Comment on above: Performed By: #### L 501.07646, L3300.6900, L501.9520, L801.2600, L509.3000, L3300.1750, L100.0100, L506.0400, L500.4050 #### [facility] [address] [place], [address] MCH (RBC) [Entitic mass] 29.5 pg Normal 27.0-32.0 [facility] Comment on above: Performed By: #### L 501.56500, L3300.6900, L501.9520, L801.2600, L509.3000, L3300.1750, L100.0100, L506.0400, L500.4050 #### [facility] [address] [place], [address] MCHC (RBC) [Mass/Vol] 32.1 g/dL Normal 32-36 [facility] Comment on above: Performed By: #### L 501.07574, L3300.6900, L501.9520, L801.2600, L509.3000, L3300.1750, L100.0100, L506.0400, L500.4050 #### [facility] [address] [place], [address] MCV (RBC) [Entitic vol] 91.7 fL Normal 81-99 [facility] Comment on above: Performed By: #### L 501.27682, L3300.6900, L501.9520, L801.2600, L509.3000, L3300.1750, L100.0100, L506.0400, L500.4050 #### [facility] [address] [place], [address] Monocytes/100 WBC (Bld) 6.4 % Normal 0-10 [facility] Comment on above: Performed By: #### L 501.07445, L3300.6900, L501.9520, L801.2600, L509.3000, L3300.1750, L100.0100, L506.0400, L500.4050 #### [facility] [address] [place], [address] Neutrophils/100 WBC (Bld) 58.8 % Normal 47-70 [facility] Comment on above: Performed By: #### L 501.39772, L3300.6900, L501.9520, L801.2600, L509.3000, L3300.1750, L100.0100, L506.0400, L500.4050 #### [facility] [address] [place], [address] Nucleated RBC (Bld) [#/Vol] 0 10*3/uL Normal 0-5 [facility] Comment on above: Performed By: #### L 501.92004, L3300.6900, L501.9520, L801.2600, L509.3000, L3300.1750, L100.0100, L506.0400, L500.4050 #### [facility] [address] [facility] [place], [address] Platelet mean volume (Bld) [Entitic vol] 9.2 fL Normal 6.2-12.0 [facility] Comment on above: Performed By: #### L 501.64844, L3300.6900, L501.9520, L801.2600, L509.3000, L3300.1750, L100.0100, L506.0400, L500.4050 #### [facility] [address] [facility] [place], [address] Platelets (Bld) [#/Vol] 247 10*3/uL Normal 150-450 [facility] Comment on above: Performed By: #### L 501.49830, L3300.6900, L501.9520, L801.2600, L509.3000, L3300.1750, L100.0100, L506.0400, L500.4050 #### [facility] [address] [facility] [place], [address] RBC (Bld) [#/Vol] 4.82 10*6/uL Normal 4.2-5.4 [facility] Comment on above: Performed By: #### L 501.58922, L3300.6900, L501.9520, L801.2600, L509.3000, L3300.1750, L100.0100, L506.0400, L500.4050 #### [facility] [address] [place], [place], [id number] RDW SD 44.6 fl High 35.1-43.9 [facility] Comment on above: Performed By: #### L 501.93115, L3300.6900, L501.9520, L801.2600, L509.3000, L3300.1750, L100.0100, L506.0400, L500.4050 #### [facility] [address] [place], [address] WBC (Bld) [#/Vol] 6.6 10*3/uL Normal 4.4-11.0 [facility] Comment on above: Performed By: #### L 501.51741, L3300.6900, L501.9520, L801.2600, L509.3000, L3300.1750, L100.0100, L506.0400, L500.4050 #### [facility] [address] [facility] [place], [address] Carbon dioxide measurementOr dered By: Hayden Wilder on 05-12-2024 CO2 [Moles/Vol] 26.0 mmol/L 21.0-32.0 [facility] Chloride measurementOrdered By: Hayden Wilder on 05-12-2024 Chloride [Moles/Vol] 104 mmol/L 98-107 [facility] Metabolic Prof ilon 05-12-2024 Albumin [Mass/Vol] 4.0 g/dL Normal 3.2-5.0 [facility] Comment on above: Order Comment: N Performed By: #### L 501.55836, L3300.6900, L501.9520, L801.2600, L509.3000, L3300.1750, L100.0100, L506.0400, L500.4050 #### [facility] [address] [place], [address] Albumin/Globulin [Mass ratio] 1.1 {ratio} Normal 0.9-2.4 [facility] Comment on above: Order Comment: N Performed By: #### L 501.71877, L3300.6900, L501.9520, L801.2600, L509.3000, L3300.1750, L100.0100, L506.0400, L500.4050 #### [facility] [address] [place], [address] ALK P 55 U/L Normal 45-117 [facility] Comment on above: Order Comment: N Performed By: #### L 501.64967, L3300.6900, L501.9520, L801.2600, L509.3000, L3300.1750, L100.0100, L506.0400, L500.4050 #### [facility] [address] [place], [address] ALT [Catalytic activity/Vol] 37 U/L Normal 13-56 [facility] Comment on above: Order Comment: N Performed By: #### L 501.58612, L3300.6900, L501.9520, L801.2600, L509.3000, L3300.1750, L100.0100, L506.0400, L500.4050 #### [facility] [address] [place], [address] AST [Catalytic activity/Vol] 17 U/L Normal 15-37 [facility] Comment on above: Order Comment: N Performed By: #### L 501.84075, L3300.6900, L501.9520, L801.2600, L509.3000, L3300.1750, L100.0100, L506.0400, L500.4050 #### [facility] [address] [place], [address] Bilirubin [Mass/Vol] 0.50 mg/dL Normal 0.20-1.00 [facility] Comment on above: Order Comment: N Result Comment: For patients on eltrombopag therapy, use of Dimension [place] TBIL is not recommended. Performed By: #### L 501.71214, L3300.6900, L501.9520, L801.2600, L509.3000, L3300.1750, L100.0100, L506.0400, L500.4050 #### [facility] [address] [place], [address] BUN/CRE 17.4 RATIO Normal 10-20 [facility] Comment on above: Order Comment: N Performed By: #### L 501.44810, L3300.6900, L501.9520, L801.2600, L509.3000, L3300.1750, L100.0100, L506.0400, L500.4050 #### [facility] [address] [place], [address] CA,Total 8.8 mg/dL Normal 8.5-10.1 [facility] Comment on above: Order Comment: N Performed By: #### L 501.83507, L3300.6900, L501.9520, L801.2600, L509.3000, L3300.1750, L100.0100, L506.0400, L500.4050 #### [facility] [address] [place], [address] Chloride [Moles/Vol] 104 mmol/L Normal 98-107 [facility] Comment on above: Order Comment: N Performed By: #### L 501.57662, L3300.6900, L501.9520, L801.2600, L509.3000, L3300.1750, L100.0100, L506.0400, L500.4050 #### [facility] [address] [place], [address] CO2 [Moles/Vol] 26.0 mmol/L Normal 21.0-32.0 [facility] Comment on above: Order Comment: N Performed By: #### L 501.46672, L3300.6900, L501.9520, L801.2600, L509.3000, L3300.1750, L100.0100, L506.0400, L500.4050 #### [facility] [address] [place], [address] Creatinine [Mass/Vol] 0.75 mg/dL Normal 0.55-1.02 [facility] Comment on above: Order Comment: N Result Comment: The validity of the calculated GFR GFRAA in patients over 70 years has not been determined. Clinical correlation is essential. Performed By: #### L 501.41056, L3300.6900, L501.9520, L801.2600, L509.3000, L3300.1750, L100.0100, L506.0400, L500.4050 #### [facility] [address] [place], [place], [id number] EST GFR - AA 99 mL/min Normal >60 [facility] Comment on above: Order Comment: N Result Comment: Afri can Mexican GFR Calc Performed By: #### L [id number], L3300.6900, L501.9520, L801.2600, L509.3000, L3300.1750, L100.0100, L506.0400, L500.4050 #### [facility] [address] [place], [address] GAP 7 Normal 5-15 [facility] Comment on above: Order Comment: N Performed By: #### L [id number], [id number], L501.9520, L801.2600, L509.3000, L3300.1750, L100.0100, L506.0400, L500.4050 #### [facility] [address] [place], [address] GFR/1.73 sq M.predicted among non-blacks MDRD (S/P/Bld) [Vol rate/Area] 82 mL/min/{1.73_m2} Normal >60 [facility] Comment on above: Order Comment: N Result Comment: Non- GFR Calc Performed By: #### L [id number], L3300.6900, L501.9520, L801.2600, L509.3000, L3300.1750, L100.0100, L506.0400, L500.4050 #### [facility] [address] [place], [address] Globulin (S) [Mass/Vol] 3.6 g/dL Normal 2.2-4.2 [facility] Comment on above: Order Comment: N Performed By: #### L [id number], [id number], L501.9520, L801.2600, L509.3000, L3300.1750, L100.0100, L506.0400, L500.4050 #### [facility] [address] [place], [address] Glucose [Mass/Vol] 115 mg/dL High 74-106 [facility] Comment on above: Order Comment: N Result Comment: Fast ing Glucose result from 100 to 125 mg/dL suggests IMPAIRED HOMEOSTASIS per A.D.A. criteria. Performed By: #### L [id number], [id number], L501.9520, L801.2600, L509.3000, L3300.1750, L100.0100, L506.0400, L500.4050 #### [facility] [address] [place], [address] Potassium [Moles/Vol] 4.0 mmol/L Normal 3.5-5.1 [facility] Comment on above: Order Comment: N Performed By: #### L [id number], [id number], L501.9520, L801.2600, L509.3000, L3300.1750, L100.0100, L506.0400, L500.4050 #### [facility] [address] [place], [address] Sodium [Moles/Vol] 137 mmol/L Normal 136-145 [facility] Comment on above: Order Comment: N Performed By: #### L [id number], [id number], L501.9520, L801.2600, L509.3000, L3300.1750, L100.0100, L506.0400, L500.4050 #### [facility] [address] [facility] [address] [place], [place], [id number] T PROT 7.6 g/dL Normal 6.4-8.2 [facility] Comment on above: Order Comment: N Performed By: #### L [id number], L3300.6900, L501.9520, L801.2600, L509.3000, L3300.1750, L100.0100, L506.0400, L500.4050 #### [facility] [address] [place], [address] Urea nitrogen [Mass/Vol] 13 mg/dL Normal 7-18 [facility] Comment on above: Order Comment: N Performed By: #### L [id number], [id number], L501.9520, L801.2600, L509.3000, L3300.1750, L100.0100, L506.0400, L500.4050 #### [facility] [address] [facility] [place], [address] Direct serum free thyroxine (FT4) measurementOrdered By: Hayden Wilder on 05-12-2024 Free T4 [Mass/Vol] 1.00 ng/dL 0.76-1.46 [facility] Eosinophil percentageOrdered By: Hayden Wilder on 05-12-2024 Eosinophils/100 WBC (Bld) 2.4 % 0-5 [facility] Erythrocyte distribution wid th ratioOrdered By: Hayden Wilder on 05-12-2024 Erythrocyte distribution width (RBC) [Ratio] 13.2 % 11.6-14.6 [facility] Erythrocyte distribution wid th standard deviationOrdered By: Hayden Wilder on 05-12-2024 Erythrocyte distribution width (RBC) [Entitic vol] 44.6 fL High 35.1-43.9 [facility] Estimated glomerular filtrat ion rate (GFR) AmericanOrdered By: Hayden Wilder on 05-12-2024 Estimated GFR (MDRD) Amer 99 mL/min >60 [facility] Comment on above: GFR Calc Estradiolon 05-12-2024 ESTRADIOL < 11.0 Normal [facility] Comment on above: Order Comment: N Result Comment: NORM AL REFERENCE RANGES FEMALE FOLLICULAR 21.4 - 164.8 pg/mL MID-CYCLE PEAK 49.9 - 367.2 pg/mL LUTEAL 40.2 - 259.0 pg/mL POST-MENOPAUSAL ON MHT <11.0 - 462.1 pg/mL NOT ON MHT <11.0 - 58.3 pg/mL MALE <11.0 - 52.5 pg/mL NOTE: [employer] HAS CONFIRMED THE DRUG FULVETRANT (FASLODEX) MAY CAUSE FALSELY ELEVATED ESTRADIOL RESULTS WHEN USING THIS TEST METHOD. IF PATIENT IS TAKING FULVESTRANT AN ALTERNATIVE METHOD SHOULD BE USED TO DETERMINE ESTRADIOL CONCENTRATION. Performed By: #### L [id number], L3300.6900, L501.9520, L801.2600, L509.3000, L3300.1750, L100.0100, L506.0400, L500.4050 #### [facility] [address] [place], [address] Estradiol measurementOrdered By: Hayden Wilder on 05-12-2024 Estradiol (E2) Level < 11.0 pg/mL [facility] Comment on above: NORMAL REFERENCE RAN GES FEMALE FOLLICULAR 21.4 - 164.8 pg/mL MID-CYCLE PEAK 49.9 - 367.2 pg/mL LUTEAL 40.2 - 259.0 pg/mL POST-MENOPAUSAL ON MHT <11.0 - 462.1 pg/mL NOT ON MHT <11.0 - 58.3 pg/mL MALE <11.0 - 52.5 pg/mL NOTE:[employer] HAS CONFIRMED THE DRUG FULVETRANT (FASLODEX) MAY CAUSE FALSELY ELEVATED ESTRADIOL RESULTS WHEN USING THIS TEST METHOD. IF PATIENT IS TAKING FULVESTRANT AN ALTERNATIVE METHOD SHOULD BE USED TO DETERMINE ESTRADIOL CONCENTRATION. Free T3on 05-12-2024 Free T3 [Mass/Vol] 2.5 pg/mL Normal 2.18-3.98 [facility] Comment on above: Order Comment: N Performed By: #### L [id number], L3300.6900, L501.9520, L801.2600, L509.3000, L3300.1750, L100.0100, L506.0400, L500.4050 #### [facility] [address] [place] [place], [address] Free [id number] By: Hayden Wilder on 05-12-2024 Free Triiodothyronine (T3) pg/dL 2.5 pg/mL 2.18-3.98 [facility] Glomerular filtration rate ( GFR) estimationOrdered By: Hayden Wilder on 05-12-2024 Estimated GFR (MDRD) Non-Af Amer 82 mL/min >60 [facility] Comment on above: Non- GFR Calc Glucose measurementOrdered B y: Hayden Wilder on 05-12-2024 Glucose [Mass/Vol] 115 mg/dL High 74-106 [facility] Comment on above: Fasting Glucose resu lt from 100 to 125 mg/dL suggests IMPAIRED HOMEOSTASIS per A.D.A. criteria. Hematocrit Auto (Bld) [Volum e fraction]Ordered By: Hayden Wilder on 05-12-2024 Hematocrit (Bld) [Volume fraction] 44.2 % 37-47 [facility] Hemoglobin measurementOrdere d By: Hayden Wilder on 05-12-2024 Hemoglobin (Bld) [Mass/Vol] 14.2 g/dL 12.0-15. 0 [facility] Immature granulocytes/100 WB C Auto (Bld)Ordered By: Hayden Wilder on 05-12-2024 Immature granulocytes/100 WBC (Bld) 0.200 % 0.0-0.9 [facility] Comment on above: IG% - Immature Granu locytes (promyelocytes, myelocytes and metamyelocytes) > 1% indicates that a LEFT SHIFT is Present. Laboratory - Chemistry and C hemistry - challengeOrdered By: Hayden Wilder on 05-12-2024 AST [Catalytic activity/Vol] 17 U/L 15-37 [facility] Lymphocytes Auto (Unsp spec) [#/Vol]Ordered By: Hayden Wilder on 05-12-2024 Lymphocytes (Bld) [#/Vol] 2.07 10*3/uL 0.83-4.5 1 [facility] Lymphocytes/100 WBC Auto (Un sp spec)Ordered By: Hayden Wilder on 05-12-2024 Lymphocytes/100 WBC (Bld) 31.4 % 19-41 [facility] MCV (mean corpuscular volume ) determinationOrdered By: Haydendejah Wilder on 05-12-2024 MCV (RBC) [Entitic vol] 91.7 fL 81-99 [facility] Mean corpuscular hemoglobin (MCH) determinationOrdered By: Haydendejah Wilder on 05-12-2024 MCH (RBC) [Entitic mass] 29.5 pg 27.0-32.0 [facility] Mean corpuscular hemoglobin concentration (MCHC) determinationOrdered By: Hayden Wilder on 05-12-2024 MCHC (RBC) [Mass/Vol] 32.1 g/dL 32-36 [facility] Mean platelet volume determi nationOrdered By: Hayden Wilder on 05-12-2024 Platelet mean volume (Bld) [Entitic vol] 9.2 fL 6.2-12.0 [facility] Monocyte percentageOrdered B y: Hayden Wilder on 05-12-2024 Monocytes/100 WBC (Bld) 6.4 % 0-10 [facility] Neutrophil percentageOrdered By: Hayden Wilder on 05-12-2024 Neutrophils/100 WBC (Bld) 58.8 % 47-70 [facility] Nucleated red blood cell per centageOrdered By: Hayden Wilder on 05-12-2024 Nucleated RBC/100 WBC (Bld) [Ratio] 0 % 0-5 [facility] Platelet countOrdered By: Jw Wilder on 05-12-2024 Platelets (Bld) [#/Vol] 247 10*3/uL 150-450 [facility] Potassium measurementOrdered By: Hayden Wilder on 05-12-2024 Potassium [Moles/Vol] 4.0 mmol/L 3.5-5.1 [facility] Quantitative serum progester one measurement by electrochemiluminescence immunoassay (Ordered By: Hayden Wilder on 05-12-2024 Progesterone Level 3.4 ng/mL . [facility] Comment on above: Follicular phase 0.1 - 0.9 Luteal phase 1.8 - 23.9 Ovulation phase 0.1 - 12.0 First trimester 11.0 - 44.3 Second trimester 25.4 - 83.3 Third trimester 58.7 - 214.0 Postmenopausal 0.0 - 0.1Performed at: [facility] [place] [id number] Director: John Zuluaga PhD, Phone: [phone] RBC Auto (Bld) [#/Vol]Ordere d By: Hayden Wilder on 05-12-2024 RBC (Bld) [#/Vol] 4.82 10*6/uL 4.2-5.4 [facility] Serum anion gap measurementO rdered By: Hayden Wilder on 05-12-2024 Anion gap [Moles/Vol] 7 mmol/L 5-15 [facility] Serum globulin measurementOr dered By: Hayden Wilder on 05-12-2024 Globulin (S) [Mass/Vol] 3.6 g/dL 2.2-4.2 [facility] Serum or plasma alanine cartwright otransferase (ALT) measurementOrdered By: Hayden Wilder on 05-12-2024 ALT [Catalytic activity/Vol] 37 U/L 13-56 [facility] Serum or plasma albumin stephenie urement (mass/volume)Ordered By: Hayden Wilder on 05-12-2024 Albumin [Mass/Vol] 4.0 g/dL 3.2-5.0 [facility] Serum or plasma alkaline delma sphatase measurementOrdered By: Hayden Wilder on 05-12-2024 ALP [Catalytic activity/Vol] 55 U/L 45-117 [facility] Serum or plasma calcium stephenie urement (mass/volume)Ordered By: Hayden Wilder on 05-12-2024 Calcium [Mass/Vol] 8.8 mg/dL 8.5-10.1 [facility] Serum or plasma creatinine m easurement (mass/volume)Ordered By: Hayden Wilder on 05-12-2024 Creatinine [Mass/Vol] 0.75 mg/dL 0.55-1.02 [facility] Comment on above: The validity of the calculated GFR & GFRAA in patients over 70 years has not been determined. Clinical correlation is essential. Serum or plasma urea nitroge n measurement (mass/volume)Ordered By: Hayden Wilder on 05-12-2024 Urea nitrogen [Mass/Vol] 13 mg/dL 7-18 [facility] Sodium levelOrdered By: Gary Wilder on 05-12-2024 Sodium [Moles/Vol] 137 mmol/L 136-145 [facility] T4 Free Directon 05-12-2024 T4 FREE DIRECT 1.00 ng/dL Normal 0.76-1.46 [facility] Comment on above: Order Comment: N Performed By: #### L [id number], L3300.6900, L501.9520, L801.2600, L509.3000, L3300.1750, L100.0100, L506.0400, L500.4050 #### [facility] [address] [place], [place], [id number] TPO Ab QnOrdered By: Blue Wilder on 05-12-2024 Thyroid Peroxidase Antibodies 18 IU/mL 0-34 [facility] Comment on above: Performed at: [address], [place] [id number] Director: John Zuluaga PhD, Phone: [phone] TSH QnOrdered By: Hayden rojo on 05-12-2024 Thyroid Stimulating Hormone (TSH) 3.310 uIU/mL 0.358-3.740 [facility] Testosterone, Serum Totalon 05-12-2024 Testosterone [Mass/Vol] 31.26 ng/dL Normal [facility] Comment on above: Result Comment: CENT RAL 90% REFERENCE RANGES MALE AGE <50 197.44 - 669.58 ng/dL MALE AGE > or = 50 187.72 - 684.19 ng/dL FEMALE AGE <50 8.38 - 35.01 ng/dL FEMALE AGE > or = 50 <7.00 - 35.92 ng/dL Effective as of 01/24/21 Performed By: #### L [id number], L3300.6900, L501.9520, L801.2600, L509.3000, L3300.1750, L100.0100, L506.0400, L500.4050 #### [facility] [address] [place], [address] Testosterone, totalOrdered B y: Hayden Wildre on 05-12-2024 Testosterone [Mass/Vol] 31.26 ng/dL [facility] Comment on above: CENTRAL 90% REFERENC E RANGES MALE AGE <50 197.44 - 669.58 ng/dL MALE AGE > or = 50 187.72 - 684.19 ng/dL FEMALE AGE <50 8.38 - 35.01 ng/dL FEMALE AGE > or = 50 <7.00 - 35.92 ng/dL Effective as of 01/24/21 Thyroid Stim Hormone (TSH)on 05-12-2024 TSH 3.310 uIU/mL Normal 0.358-3.740 [facility] Comment on above: Order Comment: N Performed By: #### L [id number], L3300.6900, L501.9520, L801.2600, L509.3000, L3300.1750, L100.0100, L506.0400, L500.4050 #### [facility] [place], [address] Total proteinOrdered By: Jairo Wilder on 05-12-2024 Protein [Mass/Vol] 7.6 g/dL 6.4-8.2 [facility] White blood cell (WBC) count Ordered By: Hayden Wilder on 05-12-2024 WBC (Bld) [#/Vol] 6.6 10*3/uL 4.4-11.0 [facility] Absolute lymphocyte countOrd ered By: Hayden Wilder on 05-15-2023 Lymphocytes Auto (Unsp spec) [#/Vol] 1.95 10*3/uL 0.83-4.51 [facility] Basophil percentageOrdered B y: Hayden Wilder on 05-15-2023 Basophils/100 WBC (Bld) 1.2 % 0-1 [facility] Bilirubin [Mass/Vol] 0.20 mg/dL 0.20-1.00 [facility] Comment on above: For patients on eltr ombopag therapy, use of Dimension [place] TBIL is not recommended. Chloride [Moles/Vol] 105 mmol/L 98-107 [facility] Eosinophils/100 WBC (Bld) 2.3 % 0-5 [facility] Glucose [Mass/Vol] 139 mg/dL 74-106 [facility] Comment on above: Fasting Glucose resu lt greater than or equal to 126 mg/dL suggests DIABETES MELLITUS per A.D.A. criteria. Neutrophils (Bld) [#/Vol] 3.8 10*3/uL 2.0-7.7 [facility] Neutrophils/100 WBC (Bld) 59.3 % 47-70 [facility] Potassium [Moles/Vol] 4.0 mmol/L 3.5-5.1 [facility] Protein [Mass/Vol] 7.2 g/dL 6.4-8.2 [facility] Sodium [Moles/Vol] 139 mmol/L 136-145 [facility] Testosterone [Mass/Vol] 20.12 ng/dL [facility] Comment on above: CENTRAL 90% REFERENC E RANGES MALE AGE <50 197.44 - 669.58 ng/dL MALE AGE > or = 50 187.72 - 684.19 ng/dL FEMALE AGE <50 8.38 - 35.01 ng/dL FEMALE AGE > or = 50 <7.00 - 35.92 ng/dL Effective as of 01/24/21 WBC (Bld) [#/Vol] 6.4 10*3/uL 4.4-11.0 [facility] Blood erythrocytes count (nu mber/volume)Ordered By: Hayden Wilder on 05-15-2023 RBC (Bld) [#/Vol] 4.41 10*6/uL 4.2-5.4 [facility] Blood hemoglobin measurement (mass/volume)Ordered By: Hayden Wilder on 05-15-2023 Hemoglobin (Bld) [Mass/Vol] 12.9 g/dL 12.0-15. 0 [facility] Blood lymphocytes/100 leukoc ytesOrdered By: Hayden Wilder on 05-15-2023 Lymphocytes/100 WBC (Bld) 30.4 % 19-41 [facility] Blood monocytes/100 leukocyt esOrdered By: Haydendejah Wilder on 05-15-2023 Monocytes/100 WBC (Bld) 6.5 % 0-10 [facility] Blood platelet mean volumeOr dered By: Hayden Wilder on 05-15-2023 Platelet mean volume (Bld) [Entitic vol] 9.5 fL 6.2-12.0 [facility] Determination of erythrocyte mean corpuscular volume (MCV)Ordered By: Hayden Wilder on 05-15-2023 MCV (RBC) [Entitic vol] 93.2 fL 81-99 [facility] Hematocrit Auto (Bld) [Volum e fraction]Ordered By: Hayden Wilder on 05-15-2023 Hematocrit (Bld) [Volume fraction] 41.1 % 37-47 [facility] - Chemistry and C hemistry - challengeOrdered By: Hayden Wilder on 05-15-2023 ALP [Catalytic activity/Vol] 52 U/L 45-117 [facility] ALT [Catalytic activity/Vol] 55 U/L 13-56 [facility] CO2 [Moles/Vol] 29.0 mmol/L 21.0-32.0 [facility] Free T4 [Mass/Vol] 1.17 ng/dL 0.76-1.46 [facility] Globulin (S) [Mass/Vol] 3.5 g/dL 2.2-4.2 [facility] Urea nitrogen/Creatinine [Mass ratio] 17.8 mg/mg 10-20 [facility] - Hematology and Cell countsOrdered By: Hayden Wilder on 05-15-2023 Erythrocyte distribution width (RBC) [Entitic vol] 45.6 fL 35.1-43.9 [facility] Erythrocyte distribution width (RBC) [Ratio] 13.3 % 11.6-14.6 [facility] Immature granulocytes/100 WBC (Bld) 0.300 % 0.0-0.9 [facility] Comment on above: IG% - Immature Granu locytes (promyelocytes, myelocytes and metamyelocytes) > 1% indicates that a LEFT SHIFT is Present. MCH (RBC) [Entitic mass] 29.3 pg 27.0-32.0 [facility] Nucleated RBC/100 WBC (Bld) [Ratio] 0 % 0-5 [facility] MCHC Auto (RBC) [Mass/Vol]Or dered By: Hayden Wilder on 05-15-2023 MCHC (RBC) [Mass/Vol] 31.4 g/dL 32-36 [facility] No Panel InformationOrdered By: Hayden Wilder on 05-15-2023 Estimated GFR (MDRD) Amer 86 mL/min >60 [facility] Comment on above: GFR Calc Estimated GFR (MDRD) Non-Af Amer 71 mL/min >60 [facility] Comment on above: Non- GFR Calc Free Triiodothyronine (T3) pg/dL 2.5 pg/mL 2.18-3.98 [facility] Thyroid Stimulating Hormone (TSH) 0.24 uIU/mL 0.358-3.74 [facility] Platelets bldOrdered By: Jairo Wilder on 11-15-2023 Platelets (Bld) [#/Vol] 243 10*3/uL 150-450 [facility] Serum or plasma albumin stephenie urement (mass/volume)Ordered By: Hayden Wilder on 05-15-2023 Albumin [Mass/Vol] 3.7 g/dL 3.2-5.0 [facility] Serum or plasma albumin/glob ulin mass ratioOrdered By: Hayden Meño on 05-15-2023 Albumin/Globulin [Mass ratio] 1.1 {ratio} 0.9-2.4 [facility] Serum or plasma calcium stephenie urement (mass/volume)Or[facility]: [facility] Calcium [Mass/Vol] 8.8 mg/dL 8.5-10.1 [facility] Serum or plasma creatinine m easurement (mass/volume)Ordered By: Hayden Meño on 05-15-2023 Creatinine [Mass/Vol] 0.84 mg/dL 0.55-1.02 [facility] Comment on above: The validity of the calculated GFR & GFRAA in patients over 70 years has not been determined. Clinical correlation is essential. Serum or plasma estradiol (E 2) measurement (mass/volume)Ordered By: Hayden Wilder on 05-15-2023 E2 [Mass/Vol] pg/mL [facility] Comment on above: NORMAL REFERENCE RAN GES FEMALE FOLLICULAR 21.4 - 164.8 pg/mL MID-CYCLE PEAK 49.9 - 367.2 pg/mL LUTEAL 40.2 - 259.0 pg/mL POST-MENOPAUSAL ON MHT <11.0 - 462.1 pg/mL NOT ON MHT <11.0 - 58.3 pg/mL MALE <11.0 - 52.5 pg/mL NOTE:[employer] HAS CONFIRMED THE DRUG FULVETRANT (FASLODEX) MAY CAUSE FALSELY ELEVATED ESTRADIOL RESULTS WHEN USING THIS TEST METHOD. IF PATIENT IS TAKING FULVESTRANT AN ALTERNATIVE METHOD SHOULD BE USED TO DETERMINE ESTRADIOL CONCENTRATION. Serum or plasma progesterone measurement (mass/volume)Ordered By: Hayden Wilder on 05-15-2023 Progesterone [Mass/Vol] 10.74 ng/mL See Comment [facility] Comment on above: Progesterone Referen ce Table: UNITS Female: Follicular 0.15 - 1.40 ng/mL Luteal 3.34 - 25.56 ng/mL Mid-luteal 4.44 - 28.03 ng/mL Postmenopausal 0.0 - 0.73 ng/mL : 1st Trimester 11.22 - 90.00 ng/mL 2nd Trimester 25.55 - 89.40 ng/mL 3rd Trimester 48.40 -422.50 ng/mL Serum or plasma urea nitroge n measurement (mass/volume)Ordered By: Hayden Wilder on 05-15-2023 Urea nitrogen [Mass/Vol] 15 mg/dL 7-18 [facility] Thin prep Papanicolaou smear with manual screeningOrdered By: Hayden Wilder on 05-15-2023 Thin prep Papanicolaou smear with manual screening 26 U/L 15-37 [facility] Thin prep Papanicolaou smear with manual screening 5 - [facility] - Chemistry and C hemistry - challengeOrdered By: Dr. Wilder on 11-30-2022 Free T4 [Mass/Vol] 1.46 ng/dL 0.76-1.46 [facility] No Panel InformationOrdered By: Dr. Wilder on 11-30-2022 C-Peptide 2.5 ng/mL 1.1-4.4 [facility] Comment on above: C-Peptide reference interval is for fasting patients. Free Triiodothyronine (T3) pg/dL 2.5 pg/mL 2.18-3.98 [facility] Thyroid Stimulating Hormone (TSH) 0.20 uIU/mL 0.358-3.74 [facility] Serum or plasma thyroperoxid ase antibody assay (units/volume)Ordered By: Dr. Wilder on 11-30-2022 TPO Ab Qn 13 [IU]/mL 0-34 [facility] Comment on above: Performed at: [place] [id number] Director: John Zuluaga PhD, Phone: [phone] Whole blood hemoglobin A1c/t otal hemoglobin ratio (mass fraction)Ordered By: Dr. Wilder on 11-30-2022 HbA1c (Bld) [Mass fraction] 5.7 % 3.8-5.6 [facility] Comment on above: Normal < 5.7 % Predi abetic 5.7 - 6.4 % Diabetic >or= 6.5 % Please note range changes. Absolute lymphocyte countOrd ered By: Dr. Wilder on 08-14-2022 Lymphocytes Auto (Unsp spec) [#/Vol] 2.04 10*3/uL 0.83-4.51 [facility] Basophil percentageOrdered B y: Dr. Wilder on 08-14-2022 Basophils/100 WBC (Bld) 1.2 % 0-1 [facility] Bilirubin [Mass/Vol] 0.30 mg/dL 0.20-1.00 [facility] Comment on above: For patients on eltr ombopag therapy, use of Dimension [place] TBIL is not recommended. Chloride [Moles/Vol] 106 mmol/L 98-107 [facility] Eosinophils/100 WBC (Bld) 4.7 % 0-5 [facility] Glucose [Mass/Vol] 109 mg/dL 74-106 [facility] Comment on above: Fasting Glucose resu lt from 100 to 125 mg/dL suggests IMPAIRED HOMEOSTASIS per A.D.A. criteria. Neutrophils (Bld) [#/Vol] 2.9 10*3/uL 2.0-7.7 [facility] Neutrophils/100 WBC (Bld) 51.4 % 47-70 [facility] Potassium [Moles/Vol] 3.9 mmol/L 3.5-5.1 [facility] Protein [Mass/Vol] 7.3 g/dL 6.4-8.2 [facility] Sodium [Moles/Vol] 139 mmol/L 136-145 [facility] Testosterone [Mass/Vol] 28.55 ng/dL [facility] Comment on above: CENTRAL 90% REFERENC E RANGES MALE AGE <50 197.44 - 669.58 ng/dL MALE AGE > or = 50 187.72 - 684.19 ng/dL FEMALE AGE <50 8.38 - 35.01 ng/dL FEMALE AGE > or = 50 <7.00 - 35.92 ng/dL Effective as of 01/24/21 WBC (Bld) [#/Vol] 5.7 10*3/uL 4.4-11.0 [facility] Blood erythrocytes count (nu mber/volume)Ordered By: Dr. Wilder on 08-14-2022 RBC (Bld) [#/Vol] 4.76 10*6/uL 4.2-5.4 [facility] Blood hemoglobin measurement (mass/volume)Ordered By: Dr. Wilder on 08-14-2022 Hemoglobin (Bld) [Mass/Vol] 13.9 g/dL 12.0-15. 0 [facility] Blood lymphocytes/100 leukoc ytesOrdered By: Dr. Wilder on 08-14-2022 Lymphocytes/100 WBC (Bld) 35.7 % 19-41 [facility] Blood monocytes/100 leukocyt esOrdered By: Dr. Wilder on 08-14-2022 Monocytes/100 WBC (Bld) 6.8 % 0-10 [facility] Blood platelet mean volumeOr dered By: Dr. Wilder on 08-14-2022 Platelet mean volume (Bld) [Entitic vol] 9.8 fL 6.2-12.0 [facility] Determination of erythrocyte mean corpuscular volume (MCV)Ordered By: Dr. Wilder on 08-14-2022 MCV (RBC) [Entitic vol] 91.6 fL 81-99 [facility] Hematocrit Auto (Bld) [Volum e fraction]Ordered By: Dr. Wilder on 08-14-2022 Hematocrit (Bld) [Volume fraction] 43.6 % 37-47 [facility] - Chemistry and C hemistry - challengeOrdered By: Dr. Wilder on 08-14-2022 ALP [Catalytic activity/Vol] 48 U/L 45-117 [facility] ALT [Catalytic activity/Vol] 27 U/L 13-56 [facility] CO2 [Moles/Vol] 24.0 mmol/L 21.0-32.0 [facility] Cobalamin (Vitamin B12) [Mass/Vol] 342 pg/mL 211-911 [facility] Free T4 [Mass/Vol] 1.41 ng/dL 0.76-1.46 [facility] Globulin (S) [Mass/Vol] 3.5 g/dL 2.2-4.2 [facility] Urea nitrogen/Creatinine [Mass ratio] 22.2 mg/mg 10-20 [facility] Laboratory - Hematology and Cell countsOrdered By: Dr. Wilder on 08-14-2022 Erythrocyte distribution width (RBC) [Entitic vol] 45.3 fL 35.1-43.9 [facility] Erythrocyte distribution width (RBC) [Ratio] 13.4 % 11.6-14.6 [facility] Immature granulocytes/100 WBC (Bld) 0.200 % 0.0-0.9 [facility] Comment on above: IG% - Immature Granu locytes (promyelocytes, myelocytes and metamyelocytes) > 1% indicates that a LEFT SHIFT is Present. MCH (RBC) [Entitic mass] 29.2 pg 27.0-32.0 [facility] Nucleated RBC/100 WBC (Bld) [Ratio] 0 % 0-5 [facility] MCHC Auto (RBC) [Mass/Vol]Or dered By: Dr. Wilder on 08-14-2022 MCHC (RBC) [Mass/Vol] 31.9 g/dL 32-36 [facility] No Panel InformationOrdered By: Dr. Wilder on 08-14-2022 Anti-Nuclear Antibody Screen Negative Negativ e [facility] Comment on above: Performed at: [place] [id number] Director: John Zuluaga PhD, Phone: [phone] Dehydroepiandrosterone Sulfate 159.0 ug/dL 20.4-186.6 [facility] Estimated GFR (MDRD) Amer 104 mL/min >60 [facility] Comment on above: GFR Calc Estimated GFR (MDRD) Non-Af Amer 86 mL/min >60 [facility] Comment on above: Non- GFR Calc Free Triiodothyronine (T3) pg/dL 2.4 pg/mL 2.18-3.98 [facility] Immunoglobulin E 19 IU/mL 6-495 [facility] Thyroid Stimulating Hormone (TSH) 1.15 uIU/mL 0.358-3.74 [facility] Vitamin D 25-Hydroxy 46.3 ng/mL [facility] Comment on above: Vitamin D 25(OH) Sta tus Range Deficiency <20 ng/mL (50nmol/L) Insufficiency 20 - 30 ng/mL (50 - 75 nmol/L) Sufficiency 30 - 100 ng/mL (75 - 250 nmol/L) Toxicity >100 ng/mL (>250 nmol/L) Platelets bldOrdered By: Dr. Wilder on 08-14-2022 Platelets (Bld) [#/Vol] 229 10*3/uL 150-450 [facility] Serum or plasma IgA measurem ent (mass/volume)Ordered By: Dr. Wilder on 08-14-2022 IgA [Mass/Vol] 62 mg/dL 87-352 [facility] Serum or plasma IgG measurem ent (mass/volume)Ordered By: Dr. Wilder on 08-14-2022 IgG [Mass/Vol] 1111 mg/dL 586-1602 [facility] Serum or plasma IgM measurem ent (mass/volume)Ordered By: Dr. Wilder on 08-14-2022 IgM [Mass/Vol] 64 mg/dL 26-217 [facility] Serum or plasma albumin stephenie urement (mass/volume)Ordered By: Dr. Wilder on 08-14-2022 Albumin [Mass/Vol] 3.8 g/dL 3.2-5.0 [facility] Serum or plasma albumin/glob ulin mass ratioOrdered By: Dr. Wilder on 08-14-2022 Albumin/Globulin [Mass ratio] 1.1 {ratio} 0.9-2.4 [facility] Serum or plasma calcium stephenie urement (mass/volume)Ordered By: Dr. Wilder on 08-14-2022 Calcium [Mass/Vol] 8.9 mg/dL 8.5-10.1 [facility] Serum or plasma cortisol bonita surement (mass/volume)Ordered By: Dr. Wilder on 08-14-2022 Cortisol [Mass/Vol] 28.40 ug/dL 3.44-22.45 [facility] Comment on above: Adult (AM) 5.27 - 22 .45 ug/dL Adult (PM) 3.44 - 16.76 ug/dLPlease note revised CORTISOL reference range effective 2019. Serum or plasma creatinine m easurement (mass/volume)Ordered By: Dr. Wilder on 08-14-2022 Creatinine [Mass/Vol] 0.72 mg/dL 0.55-1.02 [facility] Comment on above: The validity of the calculated GFR & GFRAA in patients over 70 years has not been determined. Clinical correlation is essential. Serum or plasma estradiol (E 2) measurement (mass/volume)Ordered By: Dr. Wilder on 08-14-2022 E2 [Mass/Vol] pg/mL [facility] Comment on above: NORMAL REFERENCE RAN GES FEMALE FOLLICULAR 21.4 - 164.8 pg/mL MID-CYCLE PEAK 49.9 - 367.2 pg/mL LUTEAL 40.2 - 259.0 pg/mL POST-MENOPAUSAL ON MHT <11.0 - 462.1 pg/mL NOT ON MHT <11.0 - 58.3 pg/mL MALE <11.0 - 52.5 pg/mL NOTE:[employer] HAS CONFIRMED THE DRUG FULVETRANT (FASLODEX) MAY CAUSE FALSELY ELEVATED ESTRADIOL RESULTS WHEN USING THIS TEST METHOD. IF PATIENT IS TAKING FULVESTRANT AN ALTERNATIVE METHOD SHOULD BE USED TO DETERMINE ESTRADIOL CONCENTRATION. Serum or plasma folate measu rement (mass/volume)Ordered By: Dr. Wilder on 08-14-2022 Folate [Mass/Vol] 14.60 ng/mL 3.1-55.4 [facility] Serum or plasma progesterone measurement (mass/volume)Ordered By: Dr. Wilder on 08-14-2022 Progesterone [Mass/Vol] 0.35 ng/mL See Comment [facility] Comment on above: Progesterone Referen ce Table: UNITS Female: Follicular 0.15 - 1.40 ng/mL Luteal 3.34 - 25.56 ng/mL Mid-luteal 4.44 - 28.03 ng/mL Postmenopausal 0.0 - 0.73 ng/mL : 1st Trimester 11.22 - 90.00 ng/mL 2nd Trimester 25.55 - 89.40 ng/mL 3rd Trimester 48.40 -422.50 ng/mL Serum or plasma thyroperoxid ase antibody assay (units/volume)Ordered By: Dr. Wilder on 08-14-2022 TPO Ab Qn 12 [IU]/mL 0-34 [facility] Comment on above: Performed at: [address] [id number] Director: John Zuluaga PhD, Phone: [phone] at: [facility] [id number] Director: Edilson Hernandez MD, Phone: [phone] Serum or plasma urea nitroge n measurement (mass/volume)Ordered By: Dr. Wilder on 08-14-2022 Urea nitrogen [Mass/Vol] 16 mg/dL 7-18 [facility] Thin prep Papanicolaou smear with manual screeningOrdered By: Dr. Wilder on 08-14-2022 Thin prep Papanicolaou smear with manual screening 16 U/L 15-37 [facility] Thin prep Papanicolaou smear with manual screening 9 5-15 [facility] No Panel InformationOrdered By: Dr. Frank on 08-02-2022 Thyroid Stimulating Hormone (TSH) 0.51 uIU/mL 0.358-3.74 [facility] Laboratory - Chemistry and C hemistry - challengeOrdered By: Dr. Frank on 05-02-2022 T4 [Mass/Vol] 11.7 ug/dL 4.8-13.9 [facility] No Panel InformationOrdered By: Dr. Frank on 05-02-2022 Thyroid Stimulating Hormone (TSH) 0.18 uIU/mL 0.358-3.74 [facility] Vital Signs Date Time Vital Sign Value Performing Clinician Bethany tamayo 06-02-2023 19:01-0500 Body height 162.56 cm [facility] 06-02-2023 19:01-0500 Body mass index (BMI) [Ratio] 24.9 kg/m2 [facility] 06-02-2023 19:01-0500 Body temperature 97.5 [degF] [facility] 06-02-2023 19:01-0500 Body weight 65.77 kg [facility] 06-02-2023 19:01-0500 Diastolic blood pressure 77 mm[Hg] [facility] 06-02-2023 19:01-0500 Heart rate 90 /min [facility] 06-02-2023 19:01-0500 Respiratory rate 15 /min [facility] 06-02-2023 19:01-0500 SaO2% (BldA) [Mass fraction] 100 % [facility] 06-02-2023 19:01-0500 Systolic blood pressure 171 mm[Hg] [facility] Encounters Encounter Date Encounter Type Care Provider Facility Start: 01-08-2025 End: 01-08-[address] Kendall Baker MD Work Phone: -Laboratory [facility] Start: 01-08-2025 End: 01-08-[address] Kendall Baker MD -Laboratory [facility] Start: 01-08-2025 End: 01-08-2025 ambulatory Kendall Baker Facility:[facility] Start: 11-11-2024 End: 11-11-[address] Bertha Frank MD Work Phone: [facility] Work Phone: Start: 11-11-2024 End: 11-11-[address] Kendall Baker MD -Laboratory [facility] Start: 11-11-2024 End: 11-11-2024 ambulatory Kendall Baker Facility:[facility] Start: 08-31-2024 Encounter for genera l adult medical examination without abnormal findings John Diego NP [facility] Start: 08-27-2024 End: 08-27-[address] Bertha Frank MD Work Phone: [facility] Work Phone: Start: 08-27-2024 End: 08-27-2024 Patient encounter procedure John Diego NP-[facility] -Radiology, [place] Work Phone: Start: 08-27-2024 End: 08-27-2024 ambulatory Bertha Frank Facility:[facility] Start: 08-25-2024 End: 08-25-[address] Bertha Frank MD Work Phone: [facility] Work Phone: Start: 08-25-2024 End: 08-25-2024 Patient encounter procedure John Diego NP-C -Outpatient Breast Imaging Work Phone: Start: 08-25-2024 End: 08-25-2024 ambulatory Bertha S Liniff Facility:[facility] Start: 08-18-2024 End: 08-18-2024 Patient encounter procedure John Diego DRYING TUMBLER OPERATOR-C -Laboratory, [facility] Start: 08-18-2024 End: 08-18-2024 ambulatory Bertha Ceballosiff Facility:[facility] Start: 07-14-2024 End: 07-14-[address] Odell Patrick MD -Laboratory, [facility] Work Phone: Start: 07-14-2024 End: 07-14-2024 ambulatory Odell Patrick Facility:[facility] Start: 05-12-2024 End: 05-12-[address] Hayden Wilder MD -Laboratory Work Phone: Start: 05-12-2024 End: 05-12-2024 ambulatory Hayden Wilder Facility:[facility] Start: 06-02-2023 End: 06-02-2023 Emergency department patient visit [facility]-Emergency Department Work Phone: Start: 05-15-2023 End: 05-15-2023 ambulatory [facility] Work Phone: Start: 05-15-2023 End: 05-15-2023 Patient encounter procedure [facility]-Laboratory Work Phone: Start: 03-11-2023 End: 03-11-2023 ambulatory [facility] Work Phone: Start: 03-11-2023 End: 03-11-2023 Patient encounter procedure [facility]-Cat Scan, [facility] Work Phone: Start: 11-30-2022 End: 11-30-2022 ambulatory [facility] Work Phone: Start: 11-30-2022 End: 11-30-2022 Patient encounter procedure [facility]-Laboratory Start: 08-14-2022 End: 08-14-2022 ambulatory [facility] Work Phone: Start: 08-14-2022 End: 08-14-2022 Patient encounter procedure [facility]-Laboratory Start: 08-02-2022 End: 08-02-2022 [facility] Start: 05-02-2022 End: 05-02-2022 ambulatory [facility] Work Phone: Start: 05-02-2022 End: 05-02-2022 [facility] Start: 10-03-2021 End: 10-03-2021 Patient encounter procedure [facility]-Outpatient Breast Imaging Procedures Date Procedure Procedure Detail Performing Clinician Start: 08-27-2024 X-ray of chest, PA a nd lateral views Dr. Bertha Frank MD Work Phone: Start: 08-25-2024 Screening mammography Dennis Frank MD Work Phone: Start: 08-18-2024 Vitamin D, 25-hydrox y measurement Dr. Bertha Frank MD Work Phone: Comment on above: Vitamin D 25(OH) Sta tus Range Deficiency <20 ng/mL (50nmol/L) Insufficiency 20 - 30 ng/mL (50 - 75 nmol/L) Sufficiency 30 - 100 ng/mL (75 - 250 nmol/L) Toxicity >100 ng/mL (>250 nmol/L) Start: 07-14-2024 Gram stain microscopy Dennis Frank MD Work Phone: Start: 07-14-2024 Respiratory microbia l culture Dr. Bertha Frank MD Work Phone: Start: 06-02-2023 X-ray of both feet Start: 06-02-2023 Radiography of ankle Start: 03-11-2023 CT of face Start: 10-03-2021 Screening mammography Plan of Treatment Date Care Activity Detail Author Patient Education ED Ankle Sprain (Adult) [facility] Work Phone: Patient referral [facility] Work Phone: Payers Date Payer Category Payer Self-pay [id number] 2024 Unknown [id number] 2021 Medicare [id number] Unknown [id number] Unknown [id number] Unknown [id number] Unknown [id number] 2.16.8 [id number] Unknown [id number] 2.16.8 [id number] Unknown [id number] 2.16.8 [id number] Unknown [id number] 2.16.8 [id number] Unknown [id number] 2.16.8 [id number] Unknown [id number] 2.16.8 [id number] Unknown [id number] 2.16.8 [id number] Social History Date Type Detail Facility Start: 08-09-2020 End: 06-02-2023 Tobacco smoking status NHIS Unknown if ever smoked [facility] Start: 08-09-2020 None [facility] Start: 08-09-2020 With Family [facility] Start: 1955 Sex Assigned At Female [facility] Start: 06-02-2023 Tobacco smoking stat us MTIS Never smoked tobacco (finding) [facility] Start: 09-09-2024 End: 09-10-2024 Sex Female (finding) [facility] Radiology Diagnostic study note 08-27-2024 Note Date & Type Note Facility 08-27-2024 Radiology Diagnostic study note [facility] Imaging Services [address] [place] [address] Chest PA and Lateral MR#: [id number] Acct: [id number] Name: OSBALDO ZARAGOZA Rep #: [id number] : [id number] F 68 From: Kaushik Yi DO PCP: Dr. Bertha Frank MD Status: REG CLI Study:Chest PA and Lateral Date of Exam: 08/27/24 Exam# [id number] Ordering Dr: John Diego NP DRYING TUMBLER OPERATOR-C PROCEDURE: CHEST PA AND LATERAL REASON FOR EXAM: Shortness of breath, bronchitis TECHNIQUE: Frontal and lateral views of the chest. COMPARISON: None. FINDINGS: Cardiomediastinal silhouette is within normal limits. Lungs are clear. No sizable pneumothorax. RAD/Chest PA and Lateral IMPRESSION: No acute airspace abnormality. Reading Location: [facility] CC: John EDMOND NP-C Brandie; Dr. Bertha Frank MD ~ Bag Worker: Signed [facility] Evaluation note Note Date & Type Note Facility Evaluation note No assessment information availa [facility] Work Phone: Reason for referral (narrative) Note Date & Type Note Facility Reason for referral (narrative) No reason for referral information available [facility] Work Phone: Chief Complaint and Reason for Visit Chief Complaint SCREENING Chief Complaint SINUSITIS Chief Complaint SINUSITIS LEFT FOOT/ANKLE INJURY Chief Complaint Admit Date OTHER CHRONIC SINUSITIS July 14 8:50am SCREENING August 25, 2024 2:31pm E-ORDER August 27, 2024 10:08am Chief Complaint Admit Date SCREENING August 25, 2024 2:31pm E-ORDER August 27, 2024 10:08am Family History No Family History Records Found Relationship Condition Age at Onset Recorded Date/T igor mother Hypertension Unknown father Hypertension Unknown Diabetes mellitus Unknown grandmother Diabetes mellitus Unknown Relationship Condition Age at Onset Recorded Date/T igor mother Hypertension Unknown father Hypertension Unknown Diabetes mellitus Unknown Malignant neoplasm Unknown grandmother Diabetes mellitus Unknown Advance Directives No Advanced Directives Records Found Advance Directive Response Recorded Date/ Time Advance Directives Yes July 09, 2019 8:10am Living Will Yes August 09 11:35pm Power of Nitrocellulose Maker Yes August 09, 2020 11:35pm Advance Directive Response Recorded Date/ Time Advance Directives Yes July 09, 2019 7:10am Living Will Yes August 09 10:35pm Power of Nitrocellulose Maker Yes August 09, 2020 10:35pm Advance Directive Response Recorded Date/ Time Advance Directives Yes July 09, 2019 7:10am Living Will No June 02 7:12pm Power of Nitrocellulose Maker No June 02, 2023 7:12pm Advance Directive Response Recorded Date/ Time Advance Directives Yes July 09, 2019 8:10am Summary Purpose Additional Source Comments Goals (unrecognized section and content) Goals may be documented in a n alternate sectionGoals may be documented in an alternate sectionGoals may be documented in an alternate sectionGoals may be documented in an alternate sectionGoals may be documented in an alternate sectionGoals may be documented in an alternate sectionGoals may be documented in an alternate sectionGoals may be documented in an alternate sectionGoals may be documented in an alternate sectionGoals may be documented in an alternate sectionGoals may be documented in an alternate section Care Teams (unrecognized sec tion and content) Team Status: Active Member Role Status Dates Dr. Bertha Frank MD Family Provider Active Dr. Bertha Frank MD Primary Care Provider Active Team Status: Inactive Member Role Status Dates Dr. Bertha Frank MD Primary Care Prov ider, Attending Provider, Referring Provider Active Team Status: Inactive Member Role Status Dates Dr. Bertha Frank MD Primary Care Provider Active Dr. Hayden Wilder MD Attending Provider, Referring Provider Active Team Status: Inactive Member Role Status Dates Dr. Bertha Frank MD Primary Care Provider Active Dr. Odell Patrick MD Attending Provider, Referring P po Active Team Status: Inactive Member Role Status Dates Dr. Bertha Frank MD Primary Care Provider Active Luther Siddiqi MD Emergency Provider Active Team Status: Active Member Role Status Dates Dr. Bertha Frank MD Primary Care Provider Active Team Status: Inactive Member Role Status Dates Dr. Bertha Frank MD Primary Care Provider Active Start: May 12, 2024 End: May 12, 2024 Dr. Hayden Wilder MD Attending Provider Active Start: May 12, 2024 End: May 12, 2024 Dr. Hayden Wilder MD Referring Provider Active Start: May 12, 2024 End: May 12, 2024 Team Status: Inactive Member Role Status Dates Dr. Bertha Frank MD Primary Care Provider Active Start: July 14, 2024 End: July 14, 2024 Dr. Odell Patrick MD Attending Provider Active Start: July 14, 2024 End: July 14, 2024 Dr. Odell Patrick MD Referring Provider Active Start: July 14, 2024 End: July 14, 2024 Team Status: Inactive Member Role Status Dates Dr. Bertha Frank MD Primary Care Provider Active Start: August 18, 2024 End: August 18, 2024 John Diego DRYING TUMBLER OPERATOR, DRYING TUMBLER OPERATOR-C Attending Provider Active Start: August 18, 2024 End: August 18, 2024 Team Status: Inactive Member Role Status Dates Dr. Bertha Frank MD Primary Care Provider Active Start: August 25, 2024 End: August 25, 2024 John Diego DRYING TUMBLER OPERATOR, DRYING TUMBLER OPERATOR-C Attending Provider Active Start: August 25, 2024 End: August 25, 2024 John Diego DRYING TUMBLER OPERATOR, DRYING TUMBLER OPERATOR-C Referring Provider Active Start: August 25, 2024 End: August 25, 2024 Team Status: Active Member Role Status Dates Dr. Bertha Frank MD Primary Care Provider Active Start: August 27, 2024 John Diego DRYING TUMBLER OPERATOR, DRYING TUMBLER OPERATOR-C Attending Provider Active Start: August 27, 2024 John Diego DRYING TUMBLER OPERATOR, DRYING TUMBLER OPERATOR-C Referring Provider Active Start: August 27, 2024 Team Status: Inactive Member Role Status Dates Dr. Bertha Frank MD Primary Care Provider Active Start: August 27, 2024 End: August 27, 2024 John Diego DRYING TUMBLER OPERATOR, DRYING TUMBLER OPERATOR-C Attending Provider Active Start: August 27, 2024 End: August 27, 2024 John Diego DRYING TUMBLER OPERATOR, DRYING TUMBLER OPERATOR-C Referring Provider Active Start: August 27, 2024 End: August 27, 2024 Team Status: Active Member Role Status Dates Dr. Kendall Baker MD Primary Care Provider Active Team Status: Inactive Member Role Status Dates Dr. Kendall Baker MD Primary Care Provider Active Start: November 11, 2024 End: November 11, 2024 Dr. Kendall Baker MD Attending Provider Active Start: November 11, 2024 End: November 11, 2024 Dr. Kendall Baker MD Referring Provider Active Start: November 11, 2024 End: November 11, 2024 Team Status: Active Member Role/Relationship Status Dates Dr. Kendall Baker MD Primary Care Provider Active Team Status: Inactive Member Role/Relationship Status Dates Dr. Kendall Baker MD Primary Care Provider Active Start: November 11, 2024 End: November 11, 2024 Dr. Kendall Baker MD Attending Provider Active Start: November 11, 2024 End: November 11, 2024 Dr. Kendall Baker MD Referring Provider Active Start: November 11, 2024 End: November 11, 2024 Team Status: Inactive Member Role/Relationship Status Dates Dr. Kendall Baker MD Primary Care Provider Active Start: January 08, 2025 End: January 08, 2025 Dr. Kendall Baker MD Attending Provider Active Start: January 08, 2025 End: January 08, 2025 Dr. Kendall Baker MD Referring Provider Active Start: January 08, 2025 End: January 08, 2025 INFORMATION SOURCE (unrecogn ized section and content) DATE CREATED AUTHOR 01/17/2025 [facility] FOR RECORDS PERTAINING TO PATIENTS WHO ARE OR HAVE BEEN ENROLLED IN A CHEMICAL DEPENDENCY/SUBSTANCEABUSE PROGRAM, SOME INFORMATION MAY BE OMITTED. This clinical summary was aggregated from multiple sources. Caution should be exercised in using it in the provision of clinical care. This summary normalizes information from multiple sources, and as a consequence, information in this document may materially change the coding, format and clinical context of patient data. In addition, data may be omitted in some cases. CLINICAL DECISIONS SHOULD BE BASED ON THE PRIMARY CLINICAL RECORDS. [employer] provides no warranty or guarantee of the accuracy or completeness of information in this document.
== END | disposition home or self-care (01) ==
LOC: MFPLAB 12:21
PROVIDERS: PCP Family Medicine; Referring Provider Family Medicine; Visit Provider Family Medicine
DX: E03.9 Hypothyroidism, unspecified (principal)
CPT/HCPCS: 36415; 84439; 84443; 84481

== ENCOUNTER → 2025-03-02 | Outpatient (CLI) | payer MEDICARE, OTHER, SELFPAY ==
[2025-03-02 18:24] LABS: Free T3 2.2 pg/mL (2.18-3.98)
== END | disposition home or self-care (01) ==
LOC: MFPLAB 11:30
PROVIDERS: PCP Family Medicine; Referring Provider Family Medicine; Visit Provider Family Medicine
DX: E03.9 Hypothyroidism, unspecified (principal)
CPT/HCPCS: 36415; 84439; 84443; 84481

== ENCOUNTER → 2025-03-26 | Outpatient (CLI) | payer MEDICARE, OTHER, SELFPAY ==
--- OUTSIDE RECORDS SUMMARY | 2025-03-26 12:15 | XMS RPT_ITS | CCD ---
Author Organization [facility] CliniSywa Care Team Providers Care Research Manufacturing Operator Name Role Phone Monika URBINA, Dr. Bertha Kruger Primary Care Provider Meño URBINA, Dr. Blake Attending Provider Meño URBINA, Dr. Blake Referring Provider [phone] Celina URBINA, Dr. Odell Infante Attending Provider [phone] Celina URBINA, Dr. Odell Infante Referring Provider [phone] [facility] [employer]-C, John Attending Provider [facility] [employer], John Referring Provider Monika URBINA, Dr. Bertha Kruger Primary Care Provider Monika URBINA, Dr. Bertha Kruger Primary Care Provider Olivia URBINA, Dr. Argueta Primary Care Provider Olivia URBINA, Dr. Argueta Attending Provider Olivia URBINA, Dr. Argueta Referring Provider Ramesh Otto Attending Provider Kendall Baker Attending Unavailable Olivia, Kendall Referring Unavailable Baker, Kendall Primary Care Unavailable Baker, Kendall Attending Unavailable Baker, Kendall Referring Unavailable Baker, Kendall Primary Care Unavailable Baker, Kendall Referring Unavailable Baker, Kendall Primary Care Unavailable Baker, Kendall Attending Unavailable Baker, Kendall Referring Unavailable Baker, Kendall Primary Care Unavailable Olivia, Kendall Attending Unavailable Meño, Hayden Referring Unavailable Jolliff, Bertha S Primary Care Unavailable Meño, Hayden Attending Unavailable Alexandrealliff, Bertha S Primary Care Unavailable Odell Patrick Attending Unavailable Odell Patrick Referring Unavailable Jolliff, Bertha S Primary Care Unavailable McMorrow John EDMOND Attending Unavailable Enidorrow John EDMOND Referring Unavailable Bertha Frank Primary Care Unavailable Enidorrow John EDMOND Attending Unavailable Kendall Baker Referring Unavailable Kendall Baker Primary Care Unavailable Ramesh Otto Attending Unavailable Bertha Frank Primary Care Unavailable McMorrow John EDMOND Attending Unavailable McMorrow John EDMOND Referring Unavailable Allergies Allergy Classification Reported Allergen(s) Allergy Type Date of Onset Reaction(s) Facility (14 sources) Lidocaine Drug Allergy 07-09-2019 Swelling [facility] Comment on above: from procedure on fa ce, had localized swelling (14 sources) Procaine Drug Allergy 07-09-2019 Swelling [facility] Comment on above: dental procedure, lo calized swelling (1 source) Lidocaine Drug Allergy 12-27-2023 [facility] Repository (1 source) Procaine Drug Allergy 12-27-2023 [facility] Repository Medications Current Medications Medication Drug Class(es) Dates Sig (Normalized) Sig (Original) amoxicillin 875 mg oral tablet (1 source) Penicillin-class Antibacterial Start: 02-22-2025 take 1 tablet by mouth twice daily Amoxicillin 875 mg tablet Active 875 mg PO TWICE A DAY February 22, 2025 12:00am levothyroxine sodium 0.075 mg oral tablet (20 [...] DAILY July 04, 2019 12:00am Multivitamin tablet (7 sources) Start: 07-04-2019 Multivitamin t ablet Active 1 {tbl} PO DAILY July 04, 2019 1:00am progesterone 100 mg oral capsule (2 sources) Progesterone Start: 02-22-2025 take 1 capsule by mouth once daily in the morning Progesterone Micronized 100 mg capsule Active 100 mg PO EVERY MORNING February 22, 2025 12:00am off 7 days; repeat cycle Completed/Discontinued Medications Medication Drug Class(es) Dates Sig (Normalized) Sig (Original) nitrofurantoin, macrocrystals 25 mg / nitrofurantoin, monohydrate 75 mg oral capsule (7 sources) Nitrofuran Antibacterial Start: 12-27-2023 End: 01-03-2024 [...] Date Documented Da te Episodic/Chronic Abdominal pain (14 sources) Right flank pain; Translations: [Unspecified abdominal pain] 08-10-2020 Episodic Cardiac dysrhythmias (14 sources) Intermittent palpitations; Translations: [Palpitations] 12-29-2019 Episodic Nonspecific chest pain (14 sources) Chest pain on exertion; Translations: [Chest pain, unspecified] 08-09-2020 Episodic Other upper respiratory infections (1 source) Other chronic sinusitis; Translations: [Other chronic sinusitis] Onset: 08-05-2024 Chronic Sprains and strains (8 sources) Sprain of ankle; Translations: [Sprain of unspecified ligament of unspecified ankle, initial encounter] 06-02-2023 Episodic Superficial injury; contusion (8 sources) Contusion of foot; Translations: [Contusion of unspecified foot, initial encounter] 06-02-2023 Episodic Thyroid disorders (8 sources) Hypothyroidism; Translations: [Hypothyroidism, unspecified] Onset: 03-09-2025 12-27-2023 Chronic Past or Other Problems Problem [...] Test Name Value Interpretation Reference Range Facility Free T3on 03-02-2025 Free T3 [Mass/Vol] 2.2 pg/mL Normal 2.18-3.98 [facility] Comment on above: Order Comment: Order Date: 03/02/25Order Info: 305-0 - X5VGwlix Info: 3015-08 - TSHOrder Info: 7 - T4F Performed By: #### L 506.0400, L500.4050, L501.28037, L3300.6900, L501.9520, L801.2600, L509.3000, L3300.1750, L100.0100 #### [facility] [address] [place], [address] Free [id number] By: Kendall flores on 03-02-2025 Free T3 [Mass/Vol] 2.2 pg/mL 2.18-3.98 [facility] T4 Free Directon 03-02-2025 T4 FREE DIRECT 1.30 ng/dL Normal 0.76-1.46 [facility] Comment on above: Order Comment: Order Date: 03/02/25Order Info: 305-0 - C9XPbzox Info: 3015-08 - TSHOrder Info: 7 - T4F Performed By: #### L 506.0400, L500.4050, L501.39126, L3300.6900, L501.9520, L801.2600, L509.3000, L3300.1750, L100.0100 #### [facility] [address] [place], [address] T4 freeOrdered By: Kendall flores on 03-02-2025 Free T4 [Mass/Vol] 1.30 ng/dL 0.76-1.46 [facility] TSH DL <= 0.005 mIU/L QnOrde red By: Kendall Baker on 03-02-2025 TSH Qn 2.400 uIU/mL 0.300-4.200 [facility] Thyroid Stim Hormone (TSH)on 03-02-2025 TSH 2.400 uIU/mL Normal 0.300-4.200 [facility] Comment on above: Order Comment: Order Date: 03/02/25Order Info: 3051-0 - B2PGoacz Info: 3016-3 - TSHOrder Info: 3024-7 - T4F Performed By: #### L 506.0400, L500.4050, L501.18860, L3300.6900, L501.9520, L801.2600, L509.3000, L3300.1750, L100.0100 #### [facility] [address] [place], [address] Urgent Care Visit Reporton 0 02-22-2025 Urgent Care Visit Report [facility] [address], [address] [place], [place] [address] OFFICE VISIT Date of Service: 02/22/25 MR#: [id number] Acct: [id number] Name: OSBALDO ZARAGOZA Rep #: [id number] : 1955 Provider: MARYLU Ponce Age/Sex: 69/F Location: [facility] Status: Signed Intake Vital Signs 12/27/23 06:53 02/22/25 11:22 Height 5 ft 4 in 5 ft 4 in Weight: 151 lb BMI 25.9 BP 138/78 H Blood Pressure Location Lt brachial Position Sitting Pulse 92 Pulse Source Monitor Temp 97.8 F Temp Source Oral Pulse Oximetry (%) 98 Oxygen Delivery Method room air Intake Visit Reasons: CONGESTION Chief Complaint: Congestion Allergies lidocaine Allergy (Verified 12/27/23 06:46) Swelling procaine (From Novocain) Adverse Reaction (Verified 12/27/23 06:46) Swelling Medications ???Medication ???Instructions ???Recorded ???Confirmed ???Type multivitamin 1 tab PO DAILY 07/04/19 02/22/25 H istory levothyroxine 75 mcg tablet 75 mcg PO DAILY 07/08/19 02/22/25 History amoxicillin 875 mg tablet 875 mg PO BID #20 tabs 02/22/25 Rx progesterone micronized 100 mg 100 mg PO QAM 02/22/25 02/22/25 Hi story capsule Have you fallen in the past year?: No Nurse's Note: Congestion. Was sick 2 weeks ago and got better. Congestion seems to have gotten worse. PFSH Medical History Blanca's disease Intermittent palpitations Renal calculus, right Chest pain on exertion Hypothyroidism Surgical History History of left heart catheterization (07/09/19) History of History of appendectomy Family History (Updated 12/27/23 @ 06:56 by Lilibeth Rodriguez) Mother Hypertension Father Hypertension Diabetes Cancer Grandmother Diabetes Social History (Updated 12/30/19 @ 10:[address] Carrillo Pavon MD) Smoking Status: Never smoker caffeine: Yes Type: coffee and tea HPI HPI Chief Complaint: Congestion Details: OSBALDO ZARAGOZA, is a 69 F who presents to the office today for initial evaluation at [facility] for approximately 2-3 week history of waxing/ waning worsening facial pressure/congestio n with purulent postnasal drip/cough and bilateral ear pressure - particularly worse last week. No complaints of fever, chills, myalgias, fatigue, runny nose, or nausea/vomiting/di arrhea. No complaints of chest pain/shortness of breath/dyspnea on exertion. No close contacts with similar complaints. No other associated symptoms and no other alleviating/aggrav ating factors. ROS Const Constitutional: No other (as above) Exam Const General: cooperative, healthy appearing and no acute distress Nutritional Appearance: average body habitus Orientation: alert, awake and oriented x3 HENMT Head: normal to inspection Ears: hearing grossly normal bilaterally, external ears normal, TM's normal bilaterally and EAC's normal Nose: external nose normal, nares normal, septum normal and no nasal discharge Face and sinus: normal facial exam, sinuses nontender (Though bilateral maxillary fullness to palpation) and face symmetric Mouth: oral mucosae normal, lip normal, tongue normal and oropharynx normal Throat: posterior oropharynx normal, tonsils normal, uvula midline and postnasal drainage (Purulent) Eyes General: appearance normal, both eyes and all related structures Neck Neck: normal visual inspection, full ROM, no meningeal signs, supple and lymphadenopathy (Bilateral anterior cervical lymph node swelling/tender to palpation) Neck mass: No Thyroid: thyroid normal Chest Chest palpation inspection: normal inspection of the chest Resp Effort Inspection: normal respiratory effort and able to speak in complete sentences Auscultation: Bilateral: Clear to Auscultation Cardio Palpation: normal PMI Rate: regular rate Rhythm: regular rhythm Heart Sounds: S1 normal, S2 normal, no gallops, no murmurs and no rubs Pulses: radial pulses present GI Inspection: normal to inspection Skin General: no rashes or lesions noted Neuro General: patient alert, patient awake and patient oriented x3 Cognition: normal cognition Speech: speech normal Psych Appearance: grossly normal Mental Status: mental status grossly normal Mood: congruent mood Affect: normal affect Speech and Movement: speech and movement normal Attitude: cooperative Diagnoses Acute maxillary sinusitis, unspecified J01.00 Assessment and Plan Assessment and Plan (1) Acute maxillary sinusitis, unspecified: Status: Acute Plan: Amoxicillin as prescribed today. Supportive measures as instructed today. Follow-up with PCP in 3 to 5 days should symptoms not improve, sooner should symptoms worsen or any other concerns (more content not included)... Normal [facility] Free T3on 01-21-2025 Free T3 [Mass/Vol] 2.3 pg/mL Normal 2.18-3.98 [facility] Comment on above: Performed By: #### L 506.0400, L500.4050, L501.78970, L3300.6900, L501.9520, L801.2600, L509.3000, L3300.1750, L100.0100 #### [facility] [address] [place], [place], [id number] Free Q8Oguywxn By: Kendall flores on 01-21-2025 Free T3 [Mass/Vol] 2.3 pg/mL 2.18-3.98 [facility] T4 Free Directon 01-21-2025 T4 FREE DIRECT 1.70 ng/dL High 0.76-1.46 [facility] Comment on above: Performed By: #### L 506.0400, L500.4050, L501.36732, L3300.6900, L501.9520, L801.2600, L509.3000, L3300.1750, L100.0100 #### [facility] [address] [place], [address] T4 freeOrdered By: Kendall flores on 01-21-2025 Free T4 [Mass/Vol] 1.70 ng/dL High 0.76-1.46 [facility] TSH DL <= 0.005 mIU/L QnOrde red By: Kendall Baker on 01-21-2025 TSH Qn 0.415 uIU/mL 0.300-4.200 [facility] Thyroid Stim Hormone (TSH)on 01-21-2025 TSH 0.415 uIU/mL Normal 0.300-4.200 [facility] Comment on above: Performed By: #### L 506.0400, L500.4050, L501.78436, L3300.6900, L501.9520, L801.2600, L509.3000, L3300.1750, L100.0100 #### [facility] [address] [place], [place], [id number] TSH DL <= 0.005 mIU/L QnOrde red By: Kendall Baker on 01-08-2025 TSH Qn 0.084 uIU/mL Low 0.300-4.200 [facility] Thyroid Stim Hormone (TSH)on 01-08-2025 TSH 0.084 uIU/mL Low 0.300-4.200 [facility] Comment on above: Order Comment: Order Date: 11/12/24 Order Info: 3016-3 - TSH Performed By: #### L 501.9520 #### [facility] [address] [place], [place], [id number] TSH DL <= 0.005 mIU/L QnOrde red By: Kendall Baker on 11-11-2024 TSH Qn 0.019 uIU/mL Low 0.300-4.200 [facility] Thyroid Stim Hormone (TSH)on 11-11-2024 TSH 0.019 uIU/mL Low 0.300-4.200 [facility] Comment on above: Performed By: #### L 506.0400, L500.4050, L501.83439, L3300.6900, L501.9520, L801.2600, L509.3000, L3300.1750, L100.0100 #### [facility] [address] [place], [address] Chest PA and Lateralon 08-27 Chest PA and Lateral [facility] [address] [place] [address] Chest PA and Lateral MR#: [id number] Acct: [id number] Name: OSBALDO ZARAGOZA Rep #: [id number] : 1955 F 68 From: Rigoberto Young PCP: Dr. Bertha Frank MD Status: [facility] CLI Study: Chest PA and Lateral Date of Exam: 08/27/24 Exam# [id number] Ordering Dr: John Diego NP [employer] -Karly PROCEDURE: CHEST PA AND LATERAL REASON FOR EXAM: Shortness of breath, bronchitis TECHNIQUE: Frontal and lateral views of the chest. COMPARISON: None. FINDINGS: Cardiomediastinal silhouette is within normal limits. Lungs are clear. No sizable pneumothorax. RAD/Chest PA and Lateral IMPRESSION: No acute airspace abnormality. Reading Location: [facility] CC: John EDMOND [employer]-Karly Diego; Dr. Bertha Frank MD Cake Maker: Signed Normal [facility] Breast imaging reportOrdered By: Hannah Palomo on 08-25-2024 Study report [facility] [address] [place], [place] [address] SCRN MAMM (CAD)W/FRANDY BILAT MR#: [id number] Acct: [id number] Name: OSBALDO ZARAGOZA Rep #: : 1955 F 68 From: Maureen Palomo MD PCP: Dr. Bertha Frank MD Status: REG CLI Study:SCRN MAMM (CAD)W/FRANDY BILAT Date of Exa m: 08/25/24 Exam# [id number] Ordering Dr: John Diego NP PROCEDURE: SCRN MAMM (CAD)W/FRANDY BILAT REASON FOR [...] of the results by letter. Reading Location: [facility] CC: John Diego; Dr. 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 [facility] SCRN MAMM (CAD)W/FRANDY BILATo n 08-25-2024 SCRN MAMM (CAD)W/FRANDY BILAT [facility] Imaging Services [address] [place] [address] SCRN MAMM (CAD)W/FRANDY BILAT MR#: [id number] Acct: [id number] Name: OSBALDO ZARAGOZA Rep #: [id number] : 1955 F 68 From: Hannah Palomo MD PCP: Dr. Bertha Frank MD Status: REG CLI Study: SCRN MAMM (CAD)W/FRANDY BILAT Date of Exam: 08/02 11/22 Exam# [id number] Ordering Dr: John Diego NP [employer] -C PROCEDURE: SCRN MAMM (CAD)W/FRANDY BILAT REASON [...] of the results by letter. Reading Location: [facility] CC: John Diego; Dr. Bertha Frank MD Cake Maker: Signed Normal [facility] Vitamin D,25 Hydroxyon 08-20 Vitamin D 25-OH 47.2 ng/mL Normal [facility] Comment on above: Order Comment: Order Date: 08/18/24Order Info: [id number] - VITD25 Result Comment: Vanna min D 25(OH) Status Range Deficiency <20 ng/mL (50nmol/L) Insufficiency 20 - 30 ng/mL (50 - 75 nmol/L) Sufficiency 30 - 100 ng/mL (75 - 250 nmol/L) Toxicity >100 ng/mL (>250 nmol/L) Performed By: #### L 506.0400, L500.4050, L501.97510, L3300.6900, L501.9520, L801.2600, L509.3000, L3300.1750, L100.0100 #### [facility] [address] [place], [address] 58-[id number]-Cttmlsg DOrdered By: Jeramie Diego on 08-18-2024 Vitamin D 25-Hydroxy 47.2 ng/mL [facility] Comment on above: Vitamin D 25(OH) Sta [...] Streptococcus group F Amount Growth 2+ Normal [facility] Comment on above: Performed By: #### L 506.0400, L500.4050, L501.42116, L3300.6900, L501.9520, L801.2600, L509.3000, L3300.1750, L100.0100 #### [facility] [address] [place], [address] Gram Stainon 07-15-2024 GS Gram Stain Rare Gram positive cocci Rare Gram positive rods No White Blood Cells Normal [facility] Comment on above: Performed By: #### L 506.0400, L500.4050, L501.01563, L3300.6900, L501.9520, L801.2600, L509.3000, L3300.1750, L100.0100 #### [facility] [address] [place], [address] Gram stainOrdered By: Odell gudino on 07-14-2024 Microscopic observation Gram stain Nom (Unsp spec) [facility] Nasopharyngeal cultureOrdere d By: Odell Patrick on 07-14-2024 Nasopharyngeal Culture Streptococcus group F Abnormal [facility] PROGESTERONE 4317on 05-13-20 24 PROGESTERONE 3.4 ng/mL Normal . [facility] Comment on above: Order Comment: N Result Comment: Foll icular phase 0.1 - 0.9 Luteal phase 1.8 - 23.9 Ovulation phase 0.1 - 12.0 First trimester 11.0 - 44.3 Second trimester 25.4 - 83.3 Third trimester 58.7 - 214.0 Postmenopausal 0.0 - 0.1 Performed at: [facility] [address] [place], [place] [id number] Bandage Wrapping Machine Operator: John Zuluaga PhD, Phone: [phone] Performed By: #### L 506.0400, L500.4050, L501.53271, L3300.6900, L501.9520, L801.2600, L509.3000, L3300.1750, L100.0100 #### [facility] [address] [place], [address] Thyroid Peroxidase ABon 05-01 THYR PEROX AB 18 IU/mL Normal 0-34 [facility] Comment on above: Result Comment: Perf ormed at: [facility] [address] [place], [place] [id number] Bandage Wrapping Machine Operator: John Zuluaga PhD, Phone: [phone] Performed By: #### L 506.0400, L500.4050, L501.31014, L3300.6900, L501.9520, L801.2600, L509.3000, L3300.1750, L100.0100 #### [facility] [address] [place], [address] Absolute neutrophil countOrd ered By: Hayden Wilder on 05-12-2024 Neutrophils (Bld) [#/Vol] 3.9 10*3/uL 2.0-7.7 [facility] Albumin to globulin ratioOrd ered By: Hayden Wilder on 05-12-2024 Albumin/Globulin [Mass ratio] 1.1 {ratio} 0.9-2.4 [facility] Basophil percentageOrdered B y: Hayden Wilder on 05-12-2024 Basophils/100 WBC (Bld) 0.8 % 0-1 [facility] Bilirubin, totalOrdered By: Hayden Wilder on 05-12-2024 Bilirubin [Mass/Vol] 0.50 mg/dL 0.20-1.00 [facility] Comment on above: For patients on eltr ombopag therapy, use of Dimension Hominy TBIL is not recommended. Blood urea nitrogen (BUN)/cr eatinine ratioOrdered By: Hayden Wilder on 05-12-2024 Urea nitrogen/Creatinine [Mass ratio] 17.4 mg/mg - [facility] CBC W/Diff, Automatedon 05-01 Absolute Lymph 2.07 X10 3/uL Normal 0.83-4.51 [facility] Comment on above: Performed By: #### L 506.0400, L500.4050, L501.12140, L3300.6900, L501.9520, L801.2600, L509.3000, L3300.1750, L100.0100 #### [facility] [address] [place], [address] Absolute Neut 3.9 X10 3/uL Normal 2.0-7.7 [facility] Comment on above: Performed By: #### L 506.0400, L500.4050, L501.19420, L3300.6900, L501.9520, L801.2600, L509.3000, L3300.1750, L100.0100 #### [facility] [address] [place], [address] Basophils/100 WBC (Bld) 0.8 % Normal 0-1 [facility] Comment on above: Performed By: #### L 506.0400, L500.4050, L501.64386, L3300.6900, L501.9520, L801.2600, L509.3000, L3300.1750, L100.0100 #### [facility] [address] [place], [address] Eosinophils/100 WBC (Bld) 2.4 % Normal 0-5 [facility] Comment on above: Performed By: #### L 506.0400, L500.4050, L501.13052, L3300.6900, L501.9520, L801.2600, L509.3000, L3300.1750, L100.0100 #### [facility] [address] [place], [address] Erythrocyte distribution width (RBC) [Ratio] 13.2 % Normal 11.6-14.6 [facility] Comment on above: Performed By: #### L 506.0400, L500.4050, L501.40148, L3300.6900, L501.9520, L801.2600, L509.3000, L3300.1750, L100.0100 #### [facility] [address] [place], [address] ( Hematocrit (Bld) [Volume fraction] 44.2 % Normal 37-47 [facility] Comment on above: Performed By: #### L 506.0400, L500.4050, L501.29645, L3300.6900, L501.9520, L801.2600, L509.3000, L3300.1750, L100.0100 #### [facility] [address] [place], [address] Hemoglobin (Bld) [Mass/Vol] 14.2 g/dL Normal 12.0-15. 0 [facility] Comment on above: Performed By: #### L 506.0400, L500.4050, L501.26181, L3300.6900, L501.9520, L801.2600, L509.3000, L3300.1750, L100.0100 #### [facility] [address] [place], [address] IG% 0.200 Normal 0.0-0.9 [facility] Comment on above: Result Comment: IG% - Immature Granulocytes (promyelocytes, myelocytes and metamyelocytes) > 1% indicates that a LEFT SHIFT is Present. Performed By: #### L 506.0400, L500.4050, L501.38915, L3300.6900, L501.9520, L801.2600, L509.3000, L3300.1750, L100.0100 #### [facility] [address] [place], [address] Lymphocytes/100 WBC (Bld) 31.4 % Normal 19-41 [facility] Comment on above: Performed By: #### L 506.0400, L500.4050, L501.99075, L3300.6900, L501.9520, L801.2600, L509.3000, L3300.1750, L100.0100 #### [facility] [address] [place], [address] MCH (RBC) [Entitic mass] 29.5 pg Normal 27.0-32.0 [facility] Comment on above: Performed By: #### L 506.0400, L500.4050, L501.86786, L3300.6900, L501.9520, L801.2600, L509.3000, L3300.1750, L100.0100 #### [facility] [address] [place], [address] MCHC (RBC) [Mass/Vol] 32.1 g/dL Normal 32-36 [facility] Comment on above: Performed By: #### L 506.0400, L500.4050, L501.13943, L3300.6900, L501.9520, L801.2600, L509.3000, L3300.1750, L100.0100 #### [facility] [address] [place], [address] MCV (RBC) [Entitic vol] 91.7 fL Normal 81-99 [facility] Comment on above: Performed By: #### L 506.0400, L500.4050, L501.02446, L3300.6900, L501.9520, L801.2600, L509.3000, L3300.1750, L100.0100 #### [facility] [address] [place], [address] Monocytes/100 WBC (Bld) 6.4 % Normal 0-10 [facility] Comment on above: Performed By: #### L 506.0400, L500.4050, L501.36860, L3300.6900, L501.9520, L801.2600, L509.3000, L3300.1750, L100.0100 #### [facility] [address] [place], [address] Neutrophils/100 WBC (Bld) 58.8 % Normal 47-70 [facility] Comment on above: Performed By: #### L 506.0400, L500.4050, L501.83346, L3300.6900, L501.9520, L801.2600, L509.3000, L3300.1750, L100.0100 #### [facility] [address] [place], [address] Nucleated RBC (Bld) [#/Vol] 0 10*3/uL Normal 0-5 [facility] Comment on above: Performed By: #### L 506.0400, L500.4050, L501.73871, L3300.6900, L501.9520, L801.2600, L509.3000, L3300.1750, L100.0100 #### [facility] [address] [place], [address] Platelet mean volume (Bld) [Entitic vol] 9.2 fL Normal 6.2-12.0 [facility] Comment on above: Performed By: #### L 506.0400, L500.4050, L501.63030, L3300.6900, L501.9520, L801.2600, L509.3000, L3300.1750, L100.0100 #### [facility] [address] [place], [address] Platelets (Bld) [#/Vol] 247 10*3/uL Normal 150-450 [facility] Comment on above: Performed By: #### L 506.0400, L500.4050, L501.71407, L3300.6900, L501.9520, L801.2600, L509.3000, L3300.1750, L100.0100 #### [facility] [address] [place], [address] RBC (Bld) [#/Vol] 4.82 10*6/uL Normal 4.2-5.4 [facility] Comment on above: Performed By: #### L 506.0400, L500.4050, L501.50946, L3300.6900, L501.9520, L801.2600, L509.3000, L3300.1750, L100.0100 #### [facility] [address] [place], [address] RDW SD 44.6 fl High 35.1-43.9 [facility] Comment on above: Performed By: #### L 506.0400, L500.4050, L501.04368, L3300.6900, L501.9520, L801.2600, L509.3000, L3300.1750, L100.0100 #### [facility] [address] [place], [address] WBC (Bld) [#/Vol] 6.6 10*3/uL Normal 4.4-11.0 [facility] Comment on above: Performed By: #### L 506.0400, L500.4050, L501.99106, L3300.6900, L501.9520, L801.2600, L509.3000, L3300.1750, L100.0100 #### [facility] [address] [place], [address] ( Carbon dioxide measurementOr dered By: Hayden Wilder on 05-12-2024 CO2 [Moles/Vol] 26.0 mmol/L 21.0-32.0 [facility] Chloride measurementOrdered By: Hayden Wilder on 05-12-2024 Chloride [Moles/Vol] 104 mmol/L 98-107 [facility] Comprehensive Metabolic Prof ilon 05-12-2024 Albumin [Mass/Vol] 4.0 g/dL Normal 3.2-5.0 [facility] Comment on above: Order Comment: N Performed By: #### L 506.0400, L500.4050, L501.02468, L3300.6900, L501.9520, L801.2600, L509.3000, L3300.1750, L100.0100 #### [facility] [address] [place], [address] Albumin/Globulin [Mass ratio] 1.1 {ratio} Normal 0.9-2.4 [facility] Comment on above: Order Comment: N Performed By: #### L 506.0400, L500.4050, L501.35113, L3300.6900, L501.9520, L801.2600, L509.3000, L3300.1750, L100.0100 #### [facility] [address] [place], [address] ALK P 55 U/L Normal 45-117 [facility] Comment on above: Order Comment: N Performed By: #### L 506.0400, L500.4050, L501.31626, L3300.6900, L501.9520, L801.2600, L509.3000, L3300.1750, L100.0100 #### [facility] [address] [place], [address] ALT [Catalytic activity/Vol] 37 U/L Normal 13-56 [facility] Comment on above: Order Comment: N Performed By: #### L 506.0400, L500.4050, L501.08360, L3300.6900, L501.9520, L801.2600, L509.3000, L3300.1750, L100.0100 #### [facility] [address] [place], [address] AST [Catalytic activity/Vol] 17 U/L Normal 15-37 [facility] Comment on above: Order Comment: N Performed By: #### L 506.0400, L500.4050, L501.19801, L3300.6900, L501.9520, L801.2600, L509.3000, L3300.1750, L100.0100 #### [facility] [address] [place], [address] Bilirubin [Mass/Vol] 0.50 mg/dL Normal 0.20-1.00 [facility] Comment on above: Order Comment: N Result Comment: For patients on eltrombopag therapy, use of Dimension Hominy TBIL is not recommended. Performed By: #### L 506.0400, L500.4050, L501.17758, L3300.6900, L501.9520, L801.2600, L509.3000, L3300.1750, L100.0100 #### [facility] [address] [place], [address] BUN/CRE 17.4 RATIO Normal 10-20 [facility] Comment on above: Order Comment: N Performed By: #### L 506.0400, L500.4050, L501.85496, L3300.6900, L501.9520, L801.2600, L509.3000, L3300.1750, L100.0100 #### [facility] [address] [place], [address] CA,Total 8.8 mg/dL Normal 8.5-10.1 [facility] Comment on above: Order Comment: N Performed By: #### L 506.0400, L500.4050, L501.13325, L3300.6900, L501.9520, L801.2600, L509.3000, L3300.1750, L100.0100 #### [facility] [address] [place], [address] Chloride [Moles/Vol] 104 mmol/L Normal 98-107 [facility] Comment on above: Order Comment: N Performed By: #### L 506.0400, L500.4050, L501.58357, L3300.6900, L501.9520, L801.2600, L509.3000, L3300.1750, L100.0100 #### [facility] [address] [place], [address] CO2 [Moles/Vol] 26.0 mmol/L Normal 21.0-32.0 [facility] Comment on above: Order Comment: N Performed By: #### L 506.0400, L500.4050, L501.67544, L3300.6900, L501.9520, L801.2600, L509.3000, L3300.1750, L100.0100 #### [facility] [address] [place], [address] Creatinine [Mass/Vol] 0.75 mg/dL Normal 0.55-1.02 [facility] Comment on above: Order Comment: N Result Comment: The validity of the calculated GFR GFRAA in patients over 70 years has not been determined. Clinical correlation is essential. Performed By: #### L 506.0400, L500.4050, L501.25746, L3300.6900, L501.9520, L801.2600, L509.3000, L3300.1750, L100.0100 #### [facility] [address] [place], [address] EST GFR - AA 99 mL/min Normal >60 [facility] Comment on above: Order Comment: N Result Comment: Afri can [place] GFR Calc Performed By: #### L 506.0400, L500.4050, L501.62617, L3300.6900, L501.9520, L801.2600, L509.3000, L3300.1750, L100.0100 #### [facility] [address] [place], [address] GAP 7 Normal 5-15 [facility] Comment on above: Order Comment: N Performed By: #### L 506.0400, L500.4050, L501.88484, L3300.6900, L501.9520, L801.2600, L509.3000, L3300.1750, L100.0100 #### [facility] [address] [place], [address] GFR/1.73 sq M.predicted among non-blacks MDRD (S/P/Bld) [Vol rate/Area] 82 mL/min/{1.73_m2} Normal >60 [facility] Comment on above: Order Comment: N Result Comment: Non- GFR Calc Performed By: #### L 506.0400, L500.4050, L501.51366, L3300.6900, L501.9520, L801.2600, L509.3000, L3300.1750, L100.0100 #### [facility] [address] [place], [address] Globulin (S) [Mass/Vol] 3.6 g/dL Normal 2.2-4.2 [facility] Comment on above: Order Comment: N Performed By: #### L 506.0400, L500.4050, L501.22039, L3300.6900, L501.9520, L801.2600, L509.3000, L3300.1750, L100.0100 #### [facility] [address] [place], [address] Glucose [Mass/Vol] 115 mg/dL High 74-106 [facility] Comment on above: Order Comment: N Result Comment: Fast ing Glucose result from 100 to 125 mg/dL suggests IMPAIRED HOMEOSTASIS per A.D.A. criteria. Performed By: #### L 506.0400, L500.4050, L501.58628, L3300.6900, L501.9520, L801.2600, L509.3000, L3300.1750, L100.0100 #### [facility] [address] [place], [address] Potassium [Moles/Vol] 4.0 mmol/L Normal 3.5-5.1 [facility] Comment on above: Order Comment: N Performed By: #### L 506.0400, L500.4050, L501.86166, L3300.6900, L501.9520, L801.2600, L509.3000, L3300.1750, L100.0100 #### [facility] [address] [place], [address] Sodium [Moles/Vol] 137 mmol/L Normal 136-145 [facility] Comment on above: Order Comment: N Performed By: #### L 506.0400, L500.4050, L501.48787, L3300.6900, L501.9520, L801.2600, L509.3000, L3300.1750, L100.0100 #### [facility] [address] [place], [address] T PROT 7.6 g/dL Normal 6.4-8.2 [facility] Comment on above: Order Comment: N Performed By: #### L 506.0400, L500.4050, L501.92282, L3300.6900, L501.9520, L801.2600, L509.3000, L3300.1750, L100.0100 #### [facility] [address] [place], [address] Urea nitrogen [Mass/Vol] 13 mg/dL Normal 7-18 [facility] Comment on above: Order Comment: N Performed By: #### L 506.0400, L500.4050, L501.66744, L3300.6900, L501.9520, L801.2600, L509.3000, L3300.1750, L100.0100 #### [facility] [address] [place], [address] Direct serum free thyroxine (FT4) measurementOrdered By: Hayden Wilder on 05-12-2024 Free T4 [Mass/Vol] 1.00 ng/dL 0.76-1.46 [facility] Eosinophil percentageOrdered By: Hayden Meño on 05-12-2024 Eosinophils/100 WBC (Bld) 2.4 % 0-5 [facility] Erythrocyte distribution wid th ratioOrdered By: Haydenmason Wilder on 05-12-2024 Erythrocyte distribution width (RBC) [Ratio] 13.2 % 11.6-14.6 [facility] Erythrocyte distribution wid th standard deviationOrdered By: Bingen Meño on 05-12-2024 Erythrocyte distribution width (RBC) [Entitic vol] 44.6 fL High 35.1-43.9 [facility] Estimated glomerular filtrat ion rate (GFR) AmericanOrdered By: Haydendejah Wilder on 05-12-2024 Estimated GFR (MDRD) Amer 99 mL/min >60 [facility] Comment on above: GFR Calc Estradiolon 05-12-2024 ESTRADIOL < 11.0 Normal [facility] Comment on above: Order Comment: N [...] DETERMINE ESTRADIOL CONCENTRATION. Performed By: #### L 506.0400, L500.4050, L501.07941, L3300.6900, L501.9520, L801.2600, L509.3000, L3300.1750, L100.0100 #### [facility] [address] [place], [address] Estradiol measurementOrdered By: Hayden Wilder on 05-12-2024 Estradiol (E2) Level < 11.0 pg/mL [facility] Comment on above: NORMAL REFERENCE RAN GES [...] Free T3 [Mass/Vol] 2.5 pg/mL Normal 2.18-3.98 [facility] Comment on above: Order Comment: N Performed By: #### L 506.0400, L500.4050, L501.14071, L3300.6900, L501.9520, L801.2600, L509.3000, L3300.1750, L100.0100 #### [facility] [address] [place], [address] Free [id number] By: Hayden Wilder on 05-12-2024 Free Triiodothyronine (T3) pg/dL 2.5 pg/mL 2.18-3.98 [facility] Glomerular filtration rate ( GFR) estimationOrdered By: Hayden Wilder on 05-12-2024 Estimated GFR (MDRD) Non-Af Amer 82 mL/min >60 [facility] Comment on above: Non- GFR Calc Glucose measurementOrdered B y: Hayden Christensene on 05-12-2024 Glucose [Mass/Vol] 115 mg/dL High 74-106 [facility] Comment on above: Fasting Glucose resu lt from 100 to 125 mg/dL suggests IMPAIRED HOMEOSTASIS per A.D.A. criteria. Hematocrit Auto (Bld) [Volum e fraction]Ordered By: Hayden Wilder on 05-12-2024 Hematocrit (Bld) [Volume fraction] 44.2 % 37-47 [facility] Hemoglobin measurementOrdere d By: Hayden Wilder on 05-12-2024 Hemoglobin (Bld) [Mass/Vol] 14.2 g/dL 12.0-15. 0 [facility] Immature granulocytes/100 WB C Auto (Bld)Ordered By: Hayden Wilder on 05-12-2024 Immature granulocytes/100 WBC (Bld) 0.200 % 0.0-0.9 [facility] Comment on above: IG% - Immature Granu locytes (promyelocytes, myelocytes and metamyelocytes) > 1% indicates that a LEFT SHIFT is Present. Laboratory - Chemistry and C hemistry - challengeOrdered By: Hayden Wilder on 05-12-2024 AST [Catalytic activity/Vol] 17 U/L 15-37 [facility] Lymphocytes Auto (Unsp spec) [#/Vol]Ordered By: Hayden Wilder on 05-12-2024 Lymphocytes (Bld) [#/Vol] 2.07 10*3/uL 0.83-4.5 1 [facility] Lymphocytes/100 WBC Auto (Un sp spec)Ordered By: Hayden Wilder on 05-12-2024 Lymphocytes/100 WBC (Bld) 31.4 % 19-41 [facility] MCV (mean corpuscular volume ) determinationOrdered By: Hayden Wilder on 05-12-2024 MCV (RBC) [Entitic vol] 91.7 fL 81-99 [facility] Mean corpuscular hemoglobin (MCH) determinationOrdered By: Hayden Wilder on 05-12-2024 MCH (RBC) [Entitic mass] 29.5 pg 27.0-32.0 [facility] Mean corpuscular hemoglobin concentration (MCHC) determinationOrdered By: Hayden Wilder on 05-12-2024 MCHC (RBC) [Mass/Vol] 32.1 g/dL 32-36 [facility] Mean platelet volume determi nationOrdered By: Hayden Wilder on 05-12-2024 Platelet mean volume (Bld) [Entitic vol] 9.2 fL 6.2-12.0 [facility] Monocyte percentageOrdered B y: Hayden Wilder on 05-12-2024 Monocytes/100 WBC (Bld) 6.4 % 0-10 [facility] Neutrophil percentageOrdered By: Hayden Wilder on 05-12-2024 Neutrophils/100 WBC (Bld) 58.8 % 47-70 [facility] Nucleated red blood cell per centageOrdered By: Hayden Wilder on 05-12-2024 Nucleated RBC/100 WBC (Bld) [Ratio] 0 % 0-5 [facility] Platelet countOrdered By: Jw Wilder on 05-12-2024 Platelets (Bld) [#/Vol] 247 10*3/uL 150-450 [facility] Potassium measurementOrdered By: Hayden Wilder on 05-12-2024 Potassium [Moles/Vol] 4.0 mmol/L 3.5-5.1 [facility] Quantitative serum progester one measurement by electrochemiluminescence immunoassay (Ordered By: Hayden Wilder on 05-12-2024 Progesterone Level 3.4 ng/mL . [facility] Comment on above: Follicular phase 0.1 - 0.9 Luteal phase 1.8 - 23.9 Ovulation phase 0.1 - 12.0 First trimester 11.0 - 44.3 Second trimester 25.4 - 83.3 Third trimester 58.7 - 214.0 Postmenopausal 0.0 - 0.1Performed at: [facility] [id number] Director: John Zuluaga PhD, Phone: [phone] RBC Auto (Bld) [#/Vol]Ordere d By: Hayden Wilder on 05-12-2024 RBC (Bld) [#/Vol] 4.82 10*6/uL 4.2-5.4 [facility] Serum anion gap measurementO rdered By: Hayden Wilder on 05-12-2024 Anion gap [Moles/Vol] 7 mmol/L 5-15 [facility] Serum globulin measurementOr dered By: Hayden Wilder on 05-12-2024 Globulin (S) [Mass/Vol] 3.6 g/dL 2.2-4.2 [facility] Serum or plasma alanine cartwright otransferase (ALT) measurementOrdered By: Hayden Wilder on 05-12-2024 ALT [Catalytic activity/Vol] 37 U/L 13-56 [facility] Serum or plasma albumin stephenie urement (mass/volume)Ordered By: Hayden Wilder on 05-12-2024 Albumin [Mass/Vol] 4.0 g/dL 3.2-5.0 [facility] Serum or plasma alkaline delma sphatase measurementOrdered By: Hayden Wilder on 05-12-2024 ALP [Catalytic activity/Vol] 55 U/L 45-117 [facility] Serum or plasma calcium stephenie urement (mass/volume)Ordered By: Hayden Wilder on 05-12-2024 Calcium [Mass/Vol] 8.8 mg/dL 8.5-10.1 [facility] Serum or plasma creatinine m easurement (mass/volume)Ordered By: Hayden Wilder on 05-12-2024 Creatinine [Mass/Vol] 0.75 mg/dL 0.55-1.02 [facility] Comment on above: The validity of the calculated GFR & GFRAA in patients over 70 years has not been determined. Clinical correlation is essential. Serum or plasma urea nitroge n measurement (mass/volume)Ordered By: Hayden Wilder on 05-12-2024 Urea nitrogen [Mass/Vol] 13 mg/dL 7-18 [facility] Sodium levelOrdered By: Gary Wilder on 05-12-2024 Sodium [Moles/Vol] 137 mmol/L 136-145 [facility] T4 Free Directon 05-12-2024 T4 FREE DIRECT 1.00 ng/dL Normal 0.76-1.46 [facility] Comment on above: Order Comment: N Performed By: #### L 506.0400, L500.4050, L501.83464, L3300.6900, L501.9520, L801.2600, L509.3000, L3300.1750, L100.0100 #### [facility] [address] [place], [address] TPO Ab QnOrdered By: Blue Wilder on 05-12-2024 Thyroid Peroxidase Antibodies 18 IU/mL 0-34 [facility] Comment on above: Performed at: [place] [id number] Director: John Zuluaga PhD, Phone: [phone] TSH QnOrdered By: Hayden rojo on 05-12-2024 Thyroid Stimulating Hormone (TSH) 3.310 uIU/mL 0.358-3.740 [facility] Testosterone, Serum Totalon 05-12-2024 Testosterone [Mass/Vol] 31.26 ng/dL Normal [facility] Comment on above: Result Comment: CENT RAL 90% REFERENCE RANGES MALE AGE <50 197.44 - 669.58 ng/dL MALE AGE > or = 50 187.72 - 684.19 ng/dL FEMALE AGE <50 8.38 - 35.01 ng/dL FEMALE AGE > or = 50 <7.00 - 35.92 ng/dL Effective as of 01/24/21 Performed By: #### L 506.0400, L500.4050, L501.40905, L3300.6900, L501.9520, L801.2600, L509.3000, L3300.1750, L100.0100 #### [facility] [address] [place], [address] Testosterone, totalOrdered B y: Hayden Wilder on 05-12-2024 Testosterone [Mass/Vol] 31.26 ng/dL [facility] Comment on above: CENTRAL 90% REFERENC E RANGES MALE AGE <50 197.44 - 669.58 ng/dL MALE AGE > or = 50 187.72 - 684.19 ng/dL FEMALE AGE <50 8.38 - 35.01 ng/dL FEMALE AGE > or = 50 <7.00 - 35.92 ng/dL Effective as of 01/24/21 Thyroid Stim Hormone (TSH)on 05-12-2024 TSH 3.310 uIU/mL Normal 0.358-3.740 [facility] Comment on above: Order Comment: N Performed By: #### L 506.0400, L500.4050, L501.36980, L3300.6900, L501.9520, L801.2600, L509.3000, L3300.1750, L100.0100 #### [facility] [address] [place], [address] Total proteinOrdered By: Jairo Wilder on 05-12-2024 Protein [Mass/Vol] 7.6 g/dL 6.4-8.2 [facility] White blood cell (WBC) count Ordered By: Hayden Wilder on 05-12-2024 WBC (Bld) [#/Vol] 6.6 10*3/uL 4.4-11.0 [facility] Absolute lymphocyte countOrd ered By: Hayden Wilder on 05-15-2023 Lymphocytes Auto (Unsp spec) [#/Vol] 1.95 10*3/uL 0.83-4.51 [facility] Basophil percentageOrdered B y: Hayden Wilder on 05-15-2023 Basophils/100 WBC (Bld) 1.2 % 0-1 [facility] Bilirubin [Mass/Vol] 0.20 mg/dL 0.20-1.00 [facility] Comment on above: For patients on eltr ombopag therapy, use of Dimension Hominy TBIL is not recommended. Chloride [Moles/Vol] 105 mmol/L 98-107 [facility] Eosinophils/100 WBC (Bld) 2.3 % 0-5 [facility] Glucose [Mass/Vol] 139 mg/dL 74-106 [facility] Comment on above: Fasting Glucose resu lt greater than or equal to 126 mg/dL suggests DIABETES MELLITUS per A.D.A. criteria. Neutrophils (Bld) [#/Vol] 3.8 10*3/uL 2.0-7.7 [facility] Neutrophils/100 WBC (Bld) 59.3 % 47-70 [facility] Potassium [Moles/Vol] 4.0 mmol/L 3.5-5.1 [facility] Protein [Mass/Vol] 7.2 g/dL 6.4-8.2 [facility] Sodium [Moles/Vol] 139 mmol/L 136-145 [facility] Testosterone [Mass/Vol] 20.12 ng/dL [facility] Comment on above: CENTRAL 90% REFERENC E RANGES MALE AGE <50 197.44 - 669.58 ng/dL MALE AGE > or = 50 187.72 - 684.19 ng/dL FEMALE AGE <50 8.38 - 35.01 ng/dL FEMALE AGE > or = 50 <7.00 - 35.92 ng/dL Effective as of 01/24/21 WBC (Bld) [#/Vol] 6.4 10*3/uL 4.4-11.0 [facility] Blood erythrocytes count (nu mber/volume)Ordered By: Hayden Wilder on 05-15-2023 RBC (Bld) [#/Vol] 4.41 10*6/uL 4.2-5.4 [facility] Blood hemoglobin measurement (mass/volume)Ordered By: Hayden Wilder on 05-15-2023 Hemoglobin (Bld) [Mass/Vol] 12.9 g/dL 12.0-15. 0 [facility] Blood lymphocytes/100 leukoc ytesOrdered By: Hayden Wilder on 05-15-2023 Lymphocytes/100 WBC (Bld) 30.4 % 19-41 [facility] Blood monocytes/100 leukocyt esOrdered By: Hayden Wilder on 05-15-2023 Monocytes/100 WBC (Bld) 6.5 % 0-10 [facility] Blood platelet mean volumeOr dered By: Hayden Wilder on 05-15-2023 Platelet mean volume (Bld) [Entitic vol] 9.5 fL 6.2-12.0 [facility] Determination of erythrocyte mean corpuscular volume (MCV)Ordered By: Hayden Wilder on 05-15-2023 MCV (RBC) [Entitic vol] 93.2 fL 81-99 [facility] Hematocrit Auto (Bld) [Volum e fraction]Ordered By: Haydenmason Wilder on 05-15-2023 Hematocrit (Bld) [Volume fraction] 41.1 % 37-47 [facility] - Chemistry and C hemistry - challengeOrdered By: [facility] on 05-15-2023 ALP [Catalytic activity/Vol] 52 U/L 45-117 [facility] ALT [Catalytic activity/Vol] 55 U/L 13-56 [facility] CO2 [Moles/Vol] 29.0 mmol/L 21.0-32.0 [facility] Free T4 [Mass/Vol] 1.17 ng/dL 0.76-1.46 [facility] Globulin (S) [Mass/Vol] 3.5 g/dL 2.2-4.2 [facility] Urea nitrogen/Creatinine [Mass ratio] 17.8 mg/mg 10-20 [facility] - Hematology and Cell countsOrdered By: Haydenmason Wilder on 05-15-2023 Erythrocyte distribution width (RBC) [Entitic vol] 45.6 fL 35.1-43.9 [facility] Erythrocyte distribution width (RBC) [Ratio] 13.3 % 11.6-14.6 [facility] Immature granulocytes/100 WBC (Bld) 0.300 % 0.0-0.9 [facility] Comment on above: IG% - Immature Granu locytes (promyelocytes, myelocytes and metamyelocytes) > 1% indicates that a LEFT SHIFT is Present. MCH (RBC) [Entitic mass] 29.3 pg 27.0-32.0 [facility] Nucleated RBC/100 WBC (Bld) [Ratio] 0 % 0-5 [facility] MCHC Auto (RBC) [Mass/Vol]Or dered By: Hayden Wilder on 05-15-2023 MCHC (RBC) [Mass/Vol] 31.4 g/dL 32-36 [facility] No Panel InformationOrdered By: Hayden Wilder on 05-15-2023 Estimated GFR (MDRD) Amer 86 mL/min >60 [facility] Comment on above: GFR Calc Estimated GFR (MDRD) Non-Af Amer 71 mL/min >60 [facility] Comment on above: Non- GFR Calc Free Triiodothyronine (T3) pg/dL 2.5 pg/mL 2.18-3.98 [facility] Thyroid Stimulating Hormone (TSH) 0.24 uIU/mL 0.358-3.74 [facility] Platelets bldOrdered By: Jairo Wilder on 05-15-2023 Platelets (Bld) [#/Vol] 243 10*3/uL 150-450 [facility] Serum or plasma albumin stephenie urement (mass/volume)Ordered By: Hayden Wilder on 05-15-2023 Albumin [Mass/Vol] 3.7 g/dL 3.2-5.0 [facility] Serum or plasma albumin/glob ulin mass ratioOrdered By: Hayden Wilder on 05-15-2023 Albumin/Globulin [Mass ratio] 1.1 {ratio} 0.9-2.4 [facility] Serum or plasma calcium stephenie urement (mass/volume)Ordered By: Hayden Wilder on 05-15-2023 Calcium [Mass/Vol] 8.8 mg/dL 8.5-10.1 [facility] Serum or plasma creatinine m easurement (mass/volume)Ordered By: Hayden Wilder on 05-15-2023 Creatinine [Mass/Vol] 0.84 mg/dL 0.55-1.02 [facility] Comment on above: The validity of the calculated GFR & GFRAA in patients over 70 years has not been determined. Clinical correlation is essential. Serum or plasma estradiol (E 2) measurement (mass/volume)Ordered By: Hayden Wilder on 05-15-2023 E2 [Mass/Vol] pg/mL [facility] Comment on above: NORMAL REFERENCE RAN [...] 05-15-2023 Progesterone [Mass/Vol] 10.74 ng/mL See Comment [facility] Comment on above: Progesterone Referen ce Table: [...] 05-15-2023 Urea nitrogen [Mass/Vol] 15 mg/dL 7-18 [facility] Thin prep Papanicolaou smear with manual screeningOrdered By: Hayden Wilder on 05-15-2023 Thin prep Papanicolaou smear with manual screening 26 U/L 15-37 [facility] Thin prep Papanicolaou smear with manual screening 5 5-15 [facility] - Chemistry and C hemistry - challengeOrdered By: Dr. Wilder on 11-30-2022 Free T4 [Mass/Vol] 1.46 ng/dL 0.76-1.46 [facility] No Panel InformationOrdered By: Dr. Wilder on 11-30-2022 C-Peptide 2.5 ng/mL 1.1-4.4 [facility] Comment on above: C-Peptide reference interval is for fasting patients. Free Triiodothyronine (T3) pg/dL 2.5 pg/mL 2.18-3.98 [facility] Thyroid Stimulating Hormone (TSH) 0.20 uIU/mL 0.358-3.74 [facility] Serum or plasma thyroperoxid ase antibody assay (units/volume)Ordered By: Dr. Wilder on 11-30-2022 TPO Ab Qn 13 [IU]/mL 0-34 [facility] Comment on above: Performed at: [place] [id number] Director: John Zuluaga PhD, Phone: [phone] Whole blood hemoglobin A1c/t otal hemoglobin ratio (mass fraction)Ordered By: Dr. Wilder on 11-30-2022 HbA1c (Bld) [Mass fraction] 5.7 % 3.8-5.6 [facility] Comment on above: Normal < 5.7 % Predi abetic 5.7 - 6.4 % Diabetic >or= 6.5 % Please note range changes. Absolute lymphocyte countOrd ered By: Dr. Wilder on 08-14-2022 Lymphocytes Auto (Unsp spec) [#/Vol] 2.04 10*3/uL 0.83-4.51 [facility] Basophil percentageOrdered B y: Dr. Wilder on 08-14-2022 Basophils/100 WBC (Bld) 1.2 % 0-1 [facility] Bilirubin [Mass/Vol] 0.30 mg/dL 0.20-1.00 [facility] Comment on above: For patients on eltr ombopag therapy, use of Dimension [place] TBIL is not recommended. Chloride [Moles/Vol] 106 mmol/L 98-107 [facility] Eosinophils/100 WBC (Bld) 4.7 % 0-5 [facility] Glucose [Mass/Vol] 109 mg/dL 74-106 [facility] Comment on above: Fasting Glucose resu lt from 100 to 125 mg/dL suggests IMPAIRED HOMEOSTASIS per A.D.A. criteria. Neutrophils (Bld) [#/Vol] 2.9 10*3/uL 2.0-7.7 [facility] Neutrophils/100 WBC (Bld) 51.4 % 47-70 [facility] Potassium [Moles/Vol] 3.9 mmol/L 3.5-5.1 [facility] Protein [Mass/Vol] 7.3 g/dL 6.4-8.2 [facility] Sodium [Moles/Vol] 139 mmol/L 136-145 [facility] Testosterone [Mass/Vol] 28.55 ng/dL [facility] Comment on above: CENTRAL 90% REFERENC E RANGES MALE AGE <50 197.44 - 669.58 ng/dL MALE AGE > or = 50 187.72 - 684.19 ng/dL FEMALE AGE <50 8.38 - 35.01 ng/dL FEMALE AGE > or = 50 <7.00 - 35.92 ng/dL Effective as of 01/24/21 WBC (Bld) [#/Vol] 5.7 10*3/uL 4.4-11.0 [facility] Blood erythrocytes count (nu mber/volume)Ordered By: Dr. Wilder on 08-14-2022 RBC (Bld) [#/Vol] 4.76 10*6/uL 4.2-5.4 [facility] Blood hemoglobin measurement (mass/volume)Ordered By: Dr. Wilder on 08-14-2022 Hemoglobin (Bld) [Mass/Vol] 13.9 g/dL 12.0-15. 0 [facility] Blood lymphocytes/100 leukoc ytesOrdered By: Dr. Wilder on 08-14-2022 Lymphocytes/100 WBC (Bld) 35.7 % 19-41 [facility] Blood monocytes/100 leukocyt esOrdered By: Dr. Wilder on 08-14-2022 Monocytes/100 WBC (Bld) 6.8 % 0-10 [facility] Blood platelet mean volumeOr dered By: Dr. Wilder on 08-14-2022 Platelet mean volume (Bld) [Entitic vol] 9.8 fL 6.2-12.0 [facility] Determination of erythrocyte mean corpuscular volume (MCV)Ordered By: Dr. Wilder on 08-14-2022 MCV (RBC) [Entitic vol] 91.6 fL 81-99 [facility] Hematocrit Auto (Bld) [Volum e fraction]Ordered By: Dr. Wilder on 08-14-2022 Hematocrit (Bld) [Volume fraction] 43.6 % 37-47 [facility] Laboratory - Chemistry and C hemistry - challengeOrdered By: Dr. Wilder on 08-14-2022 ALP [Catalytic activity/Vol] 48 U/L 45-117 [facility] ALT [Catalytic activity/Vol] 27 U/L 13-56 [facility] CO2 [Moles/Vol] 24.0 mmol/L 21.0-32.0 [facility] Cobalamin (Vitamin B12) [Mass/Vol] 342 pg/mL 211-911 [facility] Free T4 [Mass/Vol] 1.41 ng/dL 0.76-1.46 [facility] Globulin (S) [Mass/Vol] 3.5 g/dL 2.2-4.2 [facility] Urea nitrogen/Creatinine [Mass ratio] 22.2 mg/mg 10-20 [facility] Laboratory - Hematology and Cell countsOrdered By: Dr. Wilder on 08-14-2022 Erythrocyte distribution width (RBC) [Entitic vol] 45.3 fL 35.1-43.9 [facility] Erythrocyte distribution width (RBC) [Ratio] 13.4 % 11.6-14.6 [facility] Immature granulocytes/100 WBC (Bld) 0.200 % 0.0-0.9 [facility] Comment on above: IG% - Immature Granu locytes (promyelocytes, myelocytes and metamyelocytes) > 1% indicates that a LEFT SHIFT is Present. MCH (RBC) [Entitic mass] 29.2 pg 27.0-32.0 [facility] Nucleated RBC/100 WBC (Bld) [Ratio] 0 % 0-5 [facility] MCHC Auto (RBC) [Mass/Vol]Or dered By: Dr. Wilder on 08-14-2022 MCHC (RBC) [Mass/Vol] 31.9 g/dL 32-36 [facility] No Panel InformationOrdered By: Dr. Wilder on 08-14-2022 Anti-Nuclear Antibody Screen Negative Negativ e [facility] Comment on above: Performed at: [address] [id number] Director: John Zuluaga PhD, Phone: [phone] Dehydroepiandrosterone Sulfate 159.0 ug/dL 20.4-186.6 [facility] Estimated GFR (MDRD) Amer 104 mL/min >60 [facility] Comment on above: GFR Calc Estimated GFR (MDRD) Non-Af Amer 86 mL/min >60 [facility] Comment on above: Non- GFR Calc Free Triiodothyronine (T3) pg/dL 2.4 pg/mL 2.18-3.98 [facility] Immunoglobulin E 19 IU/mL 6-495 [facility] Thyroid Stimulating Hormone (TSH) 1.15 uIU/mL 0.358-3.74 [facility] Vitamin D 25-Hydroxy 46.3 ng/mL [facility] Comment on above: Vitamin D 25(OH) Sta tus Range Deficiency <20 ng/mL (50nmol/L) Insufficiency 20 - 30 ng/mL (50 - 75 nmol/L) Sufficiency 30 - 100 ng/mL (75 - 250 nmol/L) Toxicity >100 ng/mL (>250 nmol/L) Platelets bldOrdered By: Dr. Wilder on 08-14-2022 Platelets (Bld) [#/Vol] 229 10*3/uL 150-450 [facility] Serum or plasma IgA measurem ent (mass/volume)Ordered By: Dr. Wilder on 08-14-2022 IgA [Mass/Vol] 62 mg/dL 87-352 [facility] Serum or plasma IgG measurem ent (mass/volume)Ordered By: Dr. Wilder on 08-14-2022 IgG [Mass/Vol] 1111 mg/dL 586-1602 [facility] Serum or plasma IgM measurem ent (mass/volume)Ordered By: Dr. Wilder on 08-14-2022 IgM [Mass/Vol] 64 mg/dL 26-217 [facility] Serum or plasma albumin stephenie urement (mass/volume)Ordered By: Dr. Wilder on 08-14-2022 Albumin [Mass/Vol] 3.8 g/dL 3.2-5.0 [facility] Serum or plasma albumin/glob ulin mass ratioOrdered By: Dr. Wilder on 08-14-2022 Albumin/Globulin [Mass ratio] 1.1 {ratio} 0.9-2.4 [facility] Serum or plasma calcium stephenie urement (mass/volume)Ordered By: Dr. Wilder on 08-14-2022 Calcium [Mass/Vol] 8.9 mg/dL 8.5-10.1 [facility] Serum or plasma cortisol bonita surement (mass/volume)Ordered By: Dr. Wilder on 08-14-2022 Cortisol [Mass/Vol] 28.40 ug/dL 3.44-22.45 [facility] Comment on above: Adult (AM) 5.27 - 22 .45 ug/dL Adult (PM) 3.44 - 16.76 ug/dLPlease note revised CORTISOL reference range effective 2019. Serum or plasma creatinine m easurement (mass/volume)Ordered By: Dr. Wilder on 08-14-2022 Creatinine [Mass/Vol] 0.72 mg/dL 0.55-1.02 [facility] Comment on above: The validity of the calculated GFR & GFRAA in patients over 70 years has not been determined. Clinical correlation is essential. Serum or plasma estradiol (E 2) measurement (mass/volume)Ordered By: Dr. Wilder on 08-14-2022 E2 [Mass/Vol] pg/mL [facility] Comment on above: NORMAL REFERENCE RAN [...] on 08-14-2022 Folate [Mass/Vol] 14.60 ng/mL 3.1-55.4 [facility] Serum or plasma progesterone measurement (mass/volume)Ordered By: Dr. Wilder on 08-14-2022 Progesterone [Mass/Vol] 0.35 ng/mL See Comment [facility] Comment on above: Progesterone Referen ce Table: [...] 08-14-2022 TPO Ab Qn 12 [IU]/mL 0-34 [facility] Comment on above: Performed at: [address] [id number] Director: John Zuluaga PhD, Phone: [phone] at: - [facility] [id number] Director: Edilson Hernandez MD, Phone: [phone] Serum or plasma urea nitroge n measurement (mass/volume)Ordered By: Dr. Wilder on 08-14-2022 Urea nitrogen [Mass/Vol] 16 mg/dL 7-18 [facility] Thin prep Papanicolaou smear with manual screeningOrdered By: Dr. Wilder on 08-14-2022 Thin prep Papanicolaou smear with manual screening 16 U/L 15-37 [facility] Thin prep Papanicolaou smear with manual screening 9 5-15 [facility] No Panel InformationOrdered By: Dr. Frank on 08-02-2022 Thyroid Stimulating Hormone (TSH) 0.51 uIU/mL 0.358-3.74 [facility] Laboratory - Chemistry and C hemistry - challengeOrdered By: Dr. Frank on 05-02-2022 T4 [Mass/Vol] 11.7 ug/dL 4.8-13.9 [facility] No Panel InformationOrdered By: Dr. Frank on 05-02-2022 Thyroid Stimulating Hormone (TSH) 0.18 uIU/mL 0.358-3.74 [facility] Vital Signs Date Time Vital Sign Value Performing Clinician Faci lity 02-22-2025 11:22-0400 Body height 162.[address] Kendall Baker MD Work Phone: [facility] 02-22-2025 11:22-0400 Body mass index (BMI) [Ratio] 25.9 kg/m2 Dr. Kendall Baker MD Work Phone: [facility] 02-22-2025 11:22-0400 Body temperature 97.8 [degF] Dr. Kendall Baker MD Work Phone: [facility] 02-22-2025 11:22-0400 Body weight 68.[address] Kendall Baker MD Work Phone: [facility] 02-22-2025 11:22-0400 Diastolic blood pressure 78 mm[Hg] Dr. Kendall Baker MD Work Phone: [facility] 02-22-2025 11:22-0400 Heart rate 92 /min Dr. Kendall Baker MD Work Phone: [facility] 02-22-2025 11:22-0400 SaO2% (BldA) [Mass fraction] 98 % Dr. Kendall Baker MD Work Phone: [facility] 02-22-2025 11:22-0400 Systolic blood pressure 138 mm[Hg] Dr. Kendall Baker MD Work Phone: [facility] 06-02-2023 19:01-0500 Body height 162.56 cm [facility] 06-02-2023 19:01-0500 Body mass index (BMI) [Ratio] 24.9 kg/m2 [facility] 06-02-2023 19:01-0500 Body temperature 97.5 [degF] [facility] 06-02-2023 19:01-0500 Body weight 65.77 kg [facility] 06-02-2023 19:01-0500 Diastolic blood pressure 77 mm[Hg] [facility] 06-02-2023 19:01-0500 Heart rate 90 /min [facility] 06-02-2023 19:01-0500 Respiratory rate 15 /min [facility] 06-02-2023 19:01-0500 SaO2% (BldA) [Mass fraction] 100 % [facility] 06-02-2023 19:01-0500 Systolic blood pressure 171 mm[Hg] [facility] Encounters Encounter Date Encounter Type Care Provider Facility Start: 03-02-2025 End: 03-02-[address] Kendall Baker MD Work Phone: -[facility] Start: 03-02-2025 End: 03-02-[address] Kendall Baker MD -[facility] Start: 03-02-2025 End: 03-02-2025 ambulatory Kendall Baker Facility:[facility] Start: 02-22-2025 End: 02-22-2025 Patient encounter procedure Ramesh Turner [place] -[facility] Work Phone: Start: 02-22-2025 End: 02-22-[address] Kendall Baker MD Work Phone: -[facility] Start: 01-21-2025 End: 01-21-[address] Kendall Baker MD Work Phone: -[facility] Start: 01-21-2025 End: 01-21-[address] Kendall Baker MD -[facility] Start: 01-21-2025 End: 01-21-2025 ambulatory Kendall Baker Facility:[facility] Start: 01-08-2025 End: 01-08-[address] Kendall Baker MD Work Phone: -[facility] Start: 01-08-2025 End: 01-08-[address] Kendall Baker MD -[facility] Start: 01-08-2025 End: 01-08-2025 ambulatory Kendall Baker Facility:[facility] Start: 11-11-2024 End: 11-11-[address] Bertha Frank MD Work Phone: [facility] Work Phone: Start: 11-11-2024 End: 11-11-[address] Kendall Baker MD -Laboratory [facility] Start: 11-11-2024 End: 11-11-2024 ambulatory Kendall Baker Facility:[facility] Start: 08-31-2024 Encounter for genera l adult medical examination without abnormal findings John Diego MAYITO [facility] Start: 08-27-2024 End: 08-27-[address] Bertha Frank MD Work Phone: [facility] Work Phone: Start: 08-27-2024 End: 08-27-2024 Patient encounter procedure John Mireilleteresa [employer] -Radiology, [place] Work Phone: Start: 08-27-2024 End: 08-27-2024 ambulatory Bertha Frank Facility:[facility] Start: 08-25-2024 End: 08-25-[address] Bertha Frank MD Work Phone: [facility] Work Phone: Start: 08-25-2024 End: 08-25-2024 Patient encounter procedure John Brandie [employer] -Outpatient Breast Imaging Work Phone: Start: 08-25-2024 End: 08-25-2024 ambulatory John Brandie [employer] Facility:[facility] Start: 08-18-2024 End: 08-18-2024 Patient encounter procedure John Mireilleteresa EDMOND-C -Laboratory, [facility] Start: 08-18-2024 End: 08-18-2024 ambulatory Bertha Frank Facility:[facility] Start: 07-14-2024 End: 07-14-[address] Odell Patrick MD -Laboratory, [facility] Work Phone: Start: 07-14-2024 End: 07-14-2024 ambulatory Bertha Frank Facility:[facility] Start: 05-12-2024 End: 05-12-[address] Hayden Wilder MD -Laboratory Work Phone: Start: 05-12-2024 End: 05-12-2024 ambulatory Hayden Wilder Facility:[facility] Start: 06-02-2023 End: 06-02-2023 Emergency department patient visit [facility]-Emergency Department Work Phone: Start: 05-15-2023 End: 05-15-2023 ambulatory [facility] Work Phone: Start: 05-15-2023 End: 05-15-2023 Patient encounter procedure [facility]-Laboratory Work Phone: Start: 03-11-2023 End: 03-11-2023 ambulatory [facility] Work Phone: Start: 03-11-2023 End: 03-11-2023 Patient encounter procedure [facility]-Cat Scan, [facility] Work Phone: Start: 11-30-2022 End: 11-30-2022 ambulatory [facility] Work Phone: Start: 11-30-2022 End: 11-30-2022 Patient encounter procedure [facility]-Laboratory Start: 08-14-2022 End: 08-14-2022 ambulatory [facility] Work Phone: Start: 08-14-2022 End: 08-14-2022 [facility]: 08-02-2022 End: 08-02-2022 [facility] Start: 05-02-2022 End: 05-02-2022 ambulatory [facility] Work Phone: Start: 05-02-2022 End: 05-02-2022 [facility] Start: 10-03-2021 End: 10-03-2021 Patient encounter procedure [facility]-Outpatient Breast Imaging Procedures Date Procedure Procedure Detail [...] (>250 nmol/L) Start: 07-14-2024 Gram stain microscopy D r. Bertha Frank MD Work Phone: Start: 07-14-2024 Res[address] micro[address] l culture Dr. Bertha Frank MD Work Phone: Start: 06-02-2023 X-ray of both feet Start: 06-02-2023 Radiography of ankle Start: 03-11-2023 CT of face Start: 10-03-2021 Screening mammography Plan of Treatment Date Care Activity Detail Author Patient Education ED Ankle Sprain (Adult) [facility] Work Phone: Patient referral [facility] Work Phone: Payers Date Payer Category Payer Self-pay [id number] 2024 Unknown [id number] 2021 Medicare [id number] Unknown [id number] Unknown [id number] Unknown [id number] 2.16.8 [id number] Unknown [id number] 2.16.8 [id number] Unknown [id number] 2.16.8 [id number] Unknown [id number] 2.16.8 [id number] Unknown [id number] 2.16.8 [id number] Unknown [id number] 2.16.8 [id number] Unknown [id number] 2.16.8 [id number] Unknown [id number] 2.16.8 [id number] Unknown [id number] 2.16.8 [id number] Unknown [id number] 2.16.8 [id number] Social History Date Type Detail Facility Start: 08-09-2020 End: 06-02-2023 Tobacco smoking status NHIS Unknown if ever smoked [facility] Start: 08-09-2020 None [facility] Start: 08-09-2020 With Family [facility] Start: 1955 Sex Assigned At Female [facility] Start: 06-02-2023 Tobacco smoking stat us NHIS Never smoked tobacco (finding) [facility] Start: 09-09-2024 End: 09-10-2024 Sex Female (finding) [facility] Radiology Diagnostic study note 08-27-2024 Note Date & Type Note Facility 08-27-2024 Radiology Diagnostic study note [facility] Imaging Services [address], [place] [id number] Chest PA and Lateral MR#: [id number] Acct: [id number] Name: OSBALDO ZARAGOZA Rep #: [id number] : [id number] F 68 From: Kaushik Yi DO PCP: Dr. Bertha Frank MD Status: REG CLI Study:Chest PA and Lateral Date of Exam: 08/27/24 Exam# [id number] Ordering Dr: John Diego NP [employer]-Karly PROCEDURE: CHEST PA AND LATERAL REASON FOR EXAM: Shortness of breath, bronchitis TECHNIQUE: Frontal and lateral views of the chest. COMPARISON: None. FINDINGS: Cardiomediastinal silhouette is within normal limits. Lungs are clear. No sizable pneumothorax. RAD/Chest PA and Lateral IMPRESSION: No acute airspace abnormality. Reading Location: [facility] CC: John EDMOND NP-Karly Diego; Dr. 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 [facility] Evaluation note Note Date & Type Note Facility Evaluation note No assessment information availa ble [facility] Work Phone: Reason for referral (narrative) Note Date & Type Note Facility Reason for referral (narrative) No reason for referral information available [facility] Work Phone: Chief Complaint and Reason for Visit Chief Complaint SCREENING Chief Complaint SINUSITIS Chief Complaint SINUSITIS LEFT FOOT/ANKLE INJURY Chief Complaint Admit Date OTHER CHRONIC SINUSITIS July 14 8:50am SCREENING August 25, 2024 2:31pm E-ORDER August 27, 2024 10:08am Chief Complaint Admit Date SCREENING August 25, 2024 2:31pm E-ORDER August 27, 2024 10:08am Chief Complaint Admit Date CONGESTION February 22, 2025 11 :19am Family History No Family History Records Found [...] Will Yes August 09 11:35pm Power of Coater Helper Yes August 09, 2020 11:35pm Advance Directive Response Recorded Date/ Time Advance Directives Yes July 09, 2019 7:10am Living Will Yes August 09 10:35pm Power of Coater Helper Yes August 09, 2020 10:35pm Advance Directive Response Recorded Date/ Time Advance Directives Yes July 09, 2019 7:10am Living Will No June 02 7:12pm Power of Coater Helper No June 02, 2023 7:12pm Advance Directive [...] 2024 End: August 18, 2024 John Diego [employer], [employer] Attending Provider Active Start: August 18, 2024 End: August 18, 2024 Team Status: Inactive Member Role Status Dates Dr. Bertha Frank MD Primary Care Provider Active Start: August 25, 2024 End: August 25, 2024 John Mireilleow [employer], [employer] Attending Provider Active Start: August 25, 2024 End: August 25, 2024 John Mireilleow [employer], [employer] Referring Provider Active Start: August 25, 2024 End: August 25, 2024 Team Status: Active Member Role Status Dates Dr. Bertha Frank MD Primary Care Provider Active Start: August 27, 2024 John McMorrow [employer], [employer] Attending Provider Active Start: August 27, 2024 John McMorrow [employer], [employer] Referring Provider Active Start: August 27, 2024 Team Status: Inactive Member Role Status Dates Dr. Bertha Frank MD Primary Care Provider Active Start: August 27, 2024 End: August 27, 2024 John Enidorrow [employer], [employer] Attending Provider Active Start: August 27, 2024 End: August 27, 2024 John McMorrow [employer], [employer] Referring Provider Active Start: August 27, 2024 [...] January 08, 2025 End: January 08, 2025 Team Status: Inactive Member Role/Relationship Status Dates Dr. Kendall Baker MD Primary Care Provider Active Start: January 21, 2025 End: January 21, 2025 Dr. Kendall Baker MD Attending Provider Active Start: January 21, 2025 End: January 21, 2025 Dr. Kendall Baker MD Referring Provider Active Start: January 21, 2025 End: January 21, 2025 Team Status: Inactive Member Role/Relationship Status Dates Dr. Kendall Baker MD Primary Care Provider Active Start: February 22, 2025 End: February 22, 2025 Dr. Kendall Baker MD Referring Provider Active Start: February 22, 2025 End: February 22, 2025 Ramesh Turner PA, PA Attending Provider Active Start: February 22, 2025 End: February 22, 2025 Team Status: Inactive Member Role/Relationship Status Dates Dr. Kendall Baker MD Primary Care Provider Active Start: March 02, 2025 End: March 02, 2025 Dr. Kendall Baker MD Attending Provider Active Start: March 02, 2025 End: March 02, 2025 Dr. Kendall Baker MD Referring Provider Active Start: March 02, 2025 End: March 02, 2025 INFORMATION SOURCE (unrecogn ized section and content) DATE CREATED AUTHOR 03/11/2025 [facility] FOR RECORDS PERTAINING TO PATIENTS WHO [...] BE BASED ON THE PRIMARY CLINICAL RECORDS. [facility] [employer] [facility]. provides no warranty or guarantee of the accuracy or completeness of information in this document.
[2025-03-26 12:27] LABS: Hematocrit 43.1 % (37-47); Hemoglobin 14.4 g/dL (12.0-15.0); Immature Granulocytes Count 0.020 X10^3/uL (0.0-0.0); Mean Corp Hgb Conc 33.4 g/dL (32-36); Mean Corpuscular Volume 89.2 fL (81-99); Mean Platelet Vol. 9.7 fl (6.2-12.0); NRBC Flagged by Analyzer 0 % (0-5); Platelet Count 239 K/mm3 (150-450); RBC Distribution Width CV 14.1 % (11.6-14.6); RBC Distribution Width SD 46.0 fl (35.1-43.9); Red Blood Count 4.83 M/mm3 (4.2-5.4); White Blood Count 7.0 K/mm3 (4.4-11.0)
[2025-03-26 13:33] LABS: AST(SGOT) 22 U/L (<=31); Alanine Aminotransfer ALT/SGPT 25 U/L (<=34); Albumin, Serum 4.7 g/dL (3.4-4.8); Alkaline Phosphatase 61 U/L (35-104); Anion Gap 12 (5-15); BUN 17 mg/dL (4-19); BUN/Creat Ratio 22.4 RATIO (10-20); Calcium,Total 9.3 mg/dL (7.6-11.0); Carbon Dioxide 23.4 mmol/L (21.0-32.0); Chloride 102 mmol/L (98-108); FOLATES,SERUM (FOLIC ACID) 8.46 ng/mL (4.60-34.80); Free T3 2.2 pg/mL (2.18-3.98); Globulin 2.8 g/dL (2.2-4.2); Glucose 115 mg/dL (70-99); Potassium 4.3 mmol/L (3.3-5.1); Vitamin B12 632 pg/mL (180-914); Vitamin D,25 Hydroxy 60.2 ng/mL (30-100)
[2025-03-27 08:09] LABS: PROGESTERONE 1.7 ng/mL (.)
== END | disposition home or self-care (01) ==
LOC: LAB 11:53
PROVIDERS: PCP Family Medicine; Referring Provider Preventive Medicine Public Health & General Preventive Medicine; Visit Provider Preventive Medicine Public Health & General Preventive Medicine
DX: E03.9 Hypothyroidism, unspecified (principal); E53.8 Deficiency of other specified B group vitamins; E55.9 Vitamin D deficiency, unspecified; N95.1 Menopausal and female climacteric states
CPT/HCPCS: 36415; 80053; 82306; 82607; 82670; 82746; 84144; 84403; 84439; 84443; 84481; 85025; 86376

== ENCOUNTER → 2025-05-25 | Outpatient (CLI) | payer MEDICARE, OTHER, SELFPAY ==
--- NOTE | 2025-05-25 11:29 | NEURO ---
NCS and/or EMG Patient Report Ordering Doctor: Abad Rodriguez DATE OF SERVICE: 05/25/25 Clinical Summary: 69 year old female patient with recent trigger thumb release surgery and noticed possible muscle wasting of the right APB. Nerve Conduction Studies Summary: Nerve conduction studies performed in the right upper extremity were within normal ranges. Needle Examination Summary: Needle examination of select muscles of the right upper extremity was normal. Impression: This is a normal study. There is no electrodiagnostic evidence of a right median mononeuropathy at the wrist (carpal tunnel syndrome), ulnar mononeuroptahy, or cervical radiculopathy. Multi Select Codes Neurology Neurology Interp Codes: 76832-20 Musc test done w/n test comp (interp) (1) and 49396-56 Nrv cndj test 7-8 studies (interp)
== END | disposition home or self-care (01) ==
LOC: PSN 10:20
PROVIDERS: PCP Family Medicine; Referring Provider Student in an Organized Health Care Education/Training Program; Visit Provider Student in an Organized Health Care Education/Training Program
DX: M65.311 Trigger thumb, right thumb (principal); M79.644 Pain in right finger(s)
CPT/HCPCS: 95886; 95910

== ENCOUNTER → 2025-06-07 | Outpatient (CLI) | payer MEDICARE, OTHER, SELFPAY ==
[2025-06-07 16:00] LABS: Free T3 2.2 pg/mL (2.18-3.98)
== END | disposition home or self-care (01) ==
LOC: MFPLAB 14:06
PROVIDERS: PCP Family Medicine; Visit Provider Family Medicine
DX: E03.9 Hypothyroidism, unspecified (principal)
CPT/HCPCS: 36415; 84439; 84443; 84481